=== PATIENT | male | born 1970 | race Caucasian/White ===

== ENCOUNTER 2018-05-10 07:54 | Day surgery (SDC) | payer MEDICAID ==
[2018-05-07 11:00] VITALS: BMI 44.9
[~2018-05-10 07:54] MED LIST: LACTATED RINGERS 1,000 ML IV SCH; LIDOCAINE 1% 20 ML VIAL (10MG/ML) FOR IV START INTRADERMA PRN
[2018-05-10 08:13] VITALS: RESP 16; TEMP 99.8
[2018-05-10] MEDS ORDERED: PROPOFOL 10 MG/ML 20 ML VIAL IV ONE (08:48)
[2018-05-10] MEDS ORDERED: LIDOCAINE 1% INJ 10MG/ML (20 ML MDV) ONE (08:48)
--- NOTE | 2018-05-10 08:54 | P.GSHP ---
History of Present Illness H&P Date: 05/10/18 Chief Complaint: Screening colonoscopy This a 48-year-old male who presents today for screening colonoscopy. Patient denies any significant GI complaints. Past Medical History Past Medical History: Hyperlipidemia, Hypertension History of Any Multi-Drug Resistant Organisms: None Reported Past Surgical History: Tonsillectomy Past Anesthesia/Blood Transfusion Reactions: No Reported Reaction Smoking Status: Never smoker - Past Family History Mother Family Medical History: No Reported History Medications and Allergies Home Medications Medication Instructions Recorded Confirmed Type Aspirin 81 mg PO DAILY 05/07/18 05/10/18 History Atorvastatin [Lipitor] 20 mg PO DAILY 05/07/18 05/10/18 History Cetirizine HCl [Zyrtec] 10 mg PO DAILY PRN 05/07/18 05/10/18 History Lisinopril [Zestril] 20 mg PO DAILY 05/07/18 05/10/18 History Allergies Allergy/AdvReac Type Severity Reaction Status Date / Time Penicillins Allergy Rash/Hives Verified 05/10/18 08:09 Surgical - Exam Vital Signs Temp Pulse Resp BP Pulse Ox 99.8 F H 104 H 16 155/85 94 L 05/10/18 08:09 05/10/18 08:09 05/10/18 08:09 05/10/18 08:09 05/10/18 08:09 - General well developed, well nourished, no distress - Eyes PERRL - ENT normal pinna - Neck no masses - Respiratory normal expansion - Cardiovascular Rhythm: regular - Abdomen Abdomen: soft, non tender Assessment and Plan Assessment: We'll perform screening colonoscopy.
--- NOTE | 2018-05-10 09:16 | P.OP ---
Date of Procedure: 05/10/18 Preoperative Diagnosis: Screening colonoscopy Postoperative Diagnosis: Colon mass at 45 cm pathology pending Procedure(s) Performed: Colonoscopy Anesthesia: MAC Surgeon: Mathew Dozier Pathology: other (Left colon mass biopsy) Condition: stable Disposition: PACU Description of Procedure: The patient's placed on the endoscopy table lateral position. He received IV sedation. Digital rectal exam was performed which revealed no abnormalities. Flexible colonoscope was then placed patient anus and passed throughout the entire colon. The ileocecal valve was visualized. The cecum, ascending and transverse colon appeared normal. In the descending colon at approximate 45 cm nelia there was a large colonic mass. The mass was biopsied the combination of the snare and cold forcep. Scope was withdrawn remainder the sigmoid colon appeared normal. The rectum was normal. Scope was withdrawn for patient.
[2018-05-10 09:40] VITALS: BP 133/82; PULSE 87
== END 2018-05-10 10:21 | disposition home or self-care (01) ==
LOC: ORWHC2ENDO 07:54
PROVIDERS: ATTEND Surgery
DX: Z12.11 Encounter for screening for malignant neoplasm of colon (principal); C18.6 Malignant neoplasm of descending colon; E78.5 Hyperlipidemia, unspecified; I10 Essential (primary) hypertension; I49.9 Cardiac arrhythmia, unspecified; G47.33 Obstructive sleep apnea (adult) (pediatric); Z79.82 Long term (current) use of aspirin; Z79.899 Other long term (current) drug therapy; Z88.0 Allergy status to penicillin
CPT/HCPCS: 88305; 45385; J2001; J2704; 45380; 45381

== ENCOUNTER → 2018-05-15 | Outpatient (CLI) | payer MEDICAID ==
[2018-05-15 17:31] LABS: HGB 14.8 gm/dL (13.0-17.5); MCH 28.8 pg (25.0-35.0); MCHC 33.6 g/dL (31.0-37.0); MCV 85.7 fL (80.0-100.0); Mean Platelet Volume 6.6; Platelet Count 329 k/uL (150-450); RBC 5.14 m/uL (4.30-5.90); RDW 13.1 % (11.5-15.5); WBC 8.2 k/uL (3.8-10.6)
[2018-05-15 18:23] LABS: Potassium 4.4 mmol/L (3.5-5.1)
== END ==
LOC: LABPAT 17:06
PROVIDERS: ATTEND Surgery
DX: Z01.812 Encounter for preprocedural laboratory examination (principal); C18.9 Malignant neoplasm of colon, unspecified; Z90.49 Acquired absence of other specified parts of digestive tract
CPT/HCPCS: 36415; 80051; 85027; 86850; 86900; 86901

== ENCOUNTER → 2018-05-18 | Outpatient (CLI) | payer MEDICAID | LOC: LABPAT 10:16 | PROVIDERS: ATTEND Surgery | DX: Z01.818 Encounter for other preprocedural examination (principal); Z01.812 Encounter for preprocedural laboratory examination; C18.9 Malignant neoplasm of colon, unspecified | CPT/HCPCS: 93005 ==

== ENCOUNTER 2018-05-21 09:20 | Inpatient (IN) | payer MEDICAID ==
[2018-05-17 13:44] VITALS: BMI 44.9
[~2018-05-21 09:20] MED LIST changes: +DEXAMETHASONE SOD PHOSPHATE 10 MG/ML 1 ML VIAL IV ONE; +HEPARIN SODIUM,PORCINE 5,000 UNIT/ML 1 ML VIAL SQ ONE; +HYDROmorphone 0.5 MG/0.5 ML SYRINGE IVP PRN; -LACTATED RINGERS 1,000 ML IV SCH; -LIDOCAINE 1% 20 ML VIAL (10MG/ML) FOR IV START INTRADERMA PRN; +MIDAZOLAM (PF) 2 MG/2 ML VIAL IV PRN; +ONDANSETRON 4 MG/2 ML VIAL IVP ONE; +SCOPOLAMINE 1.5MG/72HR PATCH TRANSDERM ONE; +ceFAZolin IN SWFI 2 GM/20 ML SYRINGE IVP ONE; +metroNIDAZOLE-NS PMX 500 MG in SALINE 1 100ML.BAG IVPB ONE
[2018-05-21] MEDS: LACTATED RINGERS 1,000 ML IV SCH (09:50)
[2018-05-21] MEDS ORDERED: LIDOCAINE 1% 20 ML VIAL (10MG/ML) FOR IV START INTRADERMA ONE (09:52)
--- NOTE | 2018-05-21 09:54 | P.GSHP ---
History of Present Illness H&P Date: 05/21/18 Chief Complaint: Colon cancer This a 48-year-old male who was previously diagnosed with left colon cancer. Patient resents today for low anterior resection Patient with the risks of surgery including bleeding, wound infection and possible colostomy. Past Medical History Past Medical History: Cancer, Hyperlipidemia, Hypertension Additional Past Medical History / Comment(s): colon cancer History of Any Multi-Drug Resistant Organisms: None Reported Past Surgical History: Tonsillectomy Past Anesthesia/Blood Transfusion Reactions: No Reported Reaction Smoking Status: Never smoker - Past Family History Mother Family Medical History: No Reported History Medications and Allergies Home Medications Medication Instructions Recorded Confirmed Type Aspirin 81 mg PO DAILY 05/07/18 05/17/18 History Atorvastatin [Lipitor] 20 mg PO DAILY 05/07/18 05/17/18 History Cetirizine HCl [Zyrtec] 10 mg PO DAILY PRN 05/07/18 05/21/18 History Lisinopril [Zestril] 20 mg PO DAILY 05/07/18 05/21/18 History Allergies Allergy/AdvReac Type Severity Reaction Status Date / Time Penicillins Allergy Rash/Hives Verified 05/17/18 13:40 Surgical - Exam Vital Signs Temp Pulse Resp BP Pulse Ox 98.4 F 99 16 149/76 96 05/21/18 09:39 05/21/18 09:39 05/21/18 09:39 05/21/18 09:39 05/21/18 09:39 - General well developed, well nourished, no distress - Eyes PERRL - ENT normal pinna - Neck no masses - Respiratory normal expansion - Cardiovascular Rhythm: regular - Abdomen Abdomen: soft, non tender Assessment and Plan Assessment: Left colon cancer. We'll perform low anterior resection.
[2018-05-21] MEDS ORDERED: fentaNYL (PF) 50 MCG/ML 2 ML AMP IVP ONE ×2 (09:55→10:27)
[2018-05-21] MEDS ORDERED: MIDAZOLAM 2 MG/2 ML VIAL IVP ONE (10:04)
[2018-05-21] MEDS ORDERED: fentaNYL (PF) 50 MCG/ML 2 ML AMP ONE (10:23)
[2018-05-21] MEDS ORDERED: NEOSTIGMINE 1 MG/ML 10 ML VIAL ONE (10:23)
[2018-05-21] MEDS ORDERED: HYDROmorphone (PF) 1 MG/ML ONE (10:23)
[2018-05-21] MEDS ORDERED: SUCCINYLCHOLINE CHLORIDE VIAL 200 MG/10 ML VIAL IV ONE (10:23)
[2018-05-21] MEDS ORDERED: ROCURONIUM BROMIDE 10 MG/ML 10 ML VIAL IV ONE (10:23)
[2018-05-21] MEDS ORDERED: PHENYLEPHRINE-0.9% NACL SYG 1 MG/10 ML SYRINGE ONE (10:23)
[2018-05-21] MEDS ORDERED: MIDAZOLAM 2 MG/2 ML VIAL ONE (10:23)
[2018-05-21] MEDS ORDERED: ePHEDrine SULFATE/0.9% NACL/PF 50 MG/5 ML SYRINGE IV ONE (10:23)
[2018-05-21] MEDS ORDERED: PROPOFOL 10 MG/ML 20 ML VIAL IV ONE (10:23)
[2018-05-21] MEDS ORDERED: LIDOCAINE 1% INJ 10MG/ML (20 ML MDV) ONE (10:23)
[2018-05-21] MEDS ORDERED: GLYCOPYRROLATE 0.2 MG/ML 2 ML VIAL ONE (10:23)
[2018-05-21] MEDS ORDERED: NALOXONE 0.4 MG/ML 1 ML VIAL IV PRN (10:48)
[2018-05-21] MEDS ORDERED: diphenhydrAMINE 50 MG/ML 1 ML VIAL IVP PRN (10:48)
[2018-05-21] MEDS ORDERED: NALBUPHINE 10 MG/ML VIAL (10ML MDV) IV PRN (10:48)
[2018-05-21] MEDS ORDERED: LACTATED RINGERS 1,000 ML IV ONE (11:21)
[2018-05-21] MEDS ORDERED: ONDANSETRON 4 MG/2 ML VIAL IVP PRN (12:01)
--- NOTE | 2018-05-21 12:06 | P.OP ---
Date of Procedure: 05/21/18 Preoperative Diagnosis: Left colon cancer Postoperative Diagnosis: Colon cancer Procedure(s) Performed: Low anterior resection Anesthesia: GUILLERMINA Surgeon: Mathew Dozier Estimated Blood Loss (ml): 25 Pathology: other (Sigmoid colon) Condition: stable Disposition: PACU Description of Procedure: DESCRIPTION OF PROCEDURE: The patient was placed on the operating table in the supine position. Patient received a general anesthesia. Patient was then placed in the dorsal lithotomy position. The patients abdomen was prepped and draped in the usual sterile fashion. Through a low midline incision, the abdomen was entered. The Bereket wound protector was used. The Bookwalter retractor was placed in the wound. The stomach appeared normal. The small bowel appeared normal. The liver appeared normal. The right colon and transverse colon appeared normal. The patient's lesion was located at the proximal sigmoid colon. The area had a spot tattoo. The proximal colon was transected proximally and distally with the REJI stapler and then using the Enseal device the mesentery was divided. The specimen was tagged with a suture of the proximal and. Stress was sent to pathology. A [id number] functional end-to-end staple anastomosis then created using REJI and TA staplers. A 3-0 GI silk sutures placed as a crotch stitch. The abdomen was irrigated there is no bleeding seen. The fascia was closed clean instruments. The fascia was then closed with double stranded #1 PDS. The skin was closed with yamileth. The patient tolerated the procedure well.
[2018-05-21] MEDS: ROPIVACAINE 400 MG, HYDROMORPHONE (PF) 5 MG in SODIUM CHLORIDE 0.9% 170 ML EPIDURAL PRN (12:51)
[2018-05-21] MEDS: D5-0.45% NACL WITH KCL 20MEQ/L 1,000 ML IV SCH ×2 (14:18→21:34)
[2018-05-21] MEDS: HEPARIN SODIUM,PORCINE 5,000 UNIT/ML 1 ML VIAL SQ SCH ×2 (16:08→23:07)
--- NOTE | 2018-05-21 22:28 | P.CONS ---
History of Present Illness - Reason for Consult Consult date: 05/21/18 Medical management of hypertension - Chief Complaint Intubated for colon resection - History of Present Illness Patient is a 48-year-old male with a known history of hypertension, hyperlipidemia who recently had age appropriate cancer screening with colonoscopy on 05/10/2018 which showed invasive moderately differentiated adenocarcinoma. Patient is currently admitted to hospital for left anterior resection of the colon. Patient tolerated the procedure very well. Currently on epidural. Pain is well controlled. No complains of chest pain or shortness of breath. No fever no chills. No headache or dizziness or lightheadedness. Patient's blood pressure was low after surgery. Past Medical History Past Medical History: Cancer, Hyperlipidemia, Hypertension Additional Past Medical History / Comment(s): colon cancer History of Any Multi-Drug Resistant Organisms: None Reported Past Surgical History: Tonsillectomy Past Anesthesia/Blood Transfusion Reactions: No Reported Reaction Smoking Status: Never smoker Past Alcohol Use History: Rare Past Drug Use History: None Reported - Past Family History Mother Family Medical History: No Reported History Invasive moderately differentiated adenocarcinoma Review of Systems Constitutional: Patient denies any fever or chills . No generalized weakness or weight loss. Abdomen: Patient denied nausea vomiting and diarrhea and abdominal pain. Cardiovascular: Patient denies any chest pain or short of breath no palpitations. Respiratory: patient denied any cough is from production. No shortness of breath Neurologic: Patient denied any numbness or tingling headache. Musculoskeletal: Patient denies any complaints of joint swelling or deformity. Skin: Negative Psychiatric: Negative Endocrine: No heat or cold intolerance. No recent weight gain. Genitourinary: No dysuria or hematuria. All other 14 point ROS negative except the above Past Medical History Past Medical History: Cancer, Hyperlipidemia, Hypertension Additional Past Medical History / Comment(s): colon cancer History of Any Multi-Drug Resistant Organisms: None Reported Past Surgical History: Tonsillectomy Past Anesthesia/Blood Transfusion Reactions: No Reported Reaction Smoking Status: Never smoker Past Alcohol Use History: Rare Past Drug Use History: None Reported - Past Family History Mother Family Medical History: No Reported History Medications and Allergies Home Medications Medication Instructions Recorded Confirmed Type Aspirin 81 mg PO DAILY 05/07/18 05/21/18 History Atorvastatin [Lipitor] 20 mg PO DAILY 05/07/18 05/21/18 History Cetirizine HCl [Zyrtec] 10 mg PO DAILY PRN 05/07/18 05/21/18 History Lisinopril [Zestril] 20 mg PO DAILY 05/07/18 05/21/18 History Allergies Allergy/AdvReac Type Severity Reaction Status Date / Time Penicillins Allergy Rash/Hives Verified 05/21/18 12:32 Physical Exam Vitals: Vital Signs Temp Pulse Resp BP Pulse Ox 05/21/18 15:30 85 109/70 98 05/21/18 15:00 83 100/63 99 05/21/18 14:45 79 101/65 98 05/21/18 14:30 77 95/62 97 05/21/18 14:15 84 93/59 05/21/18 14:00 72 97/63 99 05/21/18 13:45 97 107/67 100 05/21/18 13:15 93 103/67 98 05/21/18 13:00 97.5 F L 87 100/65 98 05/21/18 12:45 80 16 106/55 96 05/21/18 12:30 80 16 112/57 100 05/21/18 12:15 84 16 112/56 100 05/21/18 12:02 96.9 F L 101 H 14 112/55 98 05/21/18 10:25 100 16 123/65 95 05/21/18 09:39 98.4 F 99 16 149/76 96 Intake and Output 05/21/18 05/21/18 05/21/18 06:59 14:59 22:59 Intake Total 2860 Output Total 300 Balance 2560 Intake: IV 1960 Intake, IV Titration 900 Amount Lactated Ringers 1,000 ml 900 @ 20 mls/hr IV .Q24H [facility] Rx#:[id number] Output: Urine 275 Estimated Blood Loss 25 Other: Weight 158.757 kg PHYSICAL EXAMINATION: Patient is lying in the bed comfortably, no acute distress, awake alert and oriented.. HEENT: Normocephalic. Neck is supple. Pupils reactive. Nostrils clear. Oral cavity is moist. Ears reveal no drainage. Neck reveals no JVD, carotid bruits, or thyromegaly. CHEST EXAMINATION: Trachea is central. Symmetrical expansion. Lung galicia clear to auscultation and percussion. CARDIAC: Normal S1, S2 with no gallops. No murmurs ABDOMEN: Soft. Bowel sounds diminished. Surgical site is intact. No organomegaly. No abdominal bruits. Extremities: reveal no edema. No clubbing or cyanosis Neurologically awake, alert, oriented x3 with well-coordinated movements. No focal deficits noted Skin: No rash or skin lesions. Psychiatric: Cooperative. Nonsuicidal Musculoskeletal: No joint swelling or deformity. Normal range of motion. Assessment and Plan Assessment: Adenocarcinoma of the colon status post anterior left colectomy Hypertension. Currently patient is hypotensive Hyperlipidemia DVT prophylaxis Plan: Patient will be continued on pain management with Dilaudid via epidural. Continue with IV fluids and will hold blood pressure medications due to hypotension currently. Continue to follow closely and symptomatic management. Follow-up CBC and BMP. Further recommendations based on the clinical course. Thank you for your consult Time with Patient: Greater than 30
[2018-05-22] MEDS: LACTATED RINGERS 1,000 ML IV SCH (04:45)
[2018-05-22] MEDS: D5-0.45% NACL WITH KCL 20MEQ/L 1,000 ML IV SCH ×2 (05:32→12:40)
[2018-05-22 08:29] LABS: Basophils % (A) 0 %; Eosinophils % (A) 0 %; HCT 40.3 % (39.0-53.0); HGB 12.5 gm/dL (13.0-17.5); Hypochromasia Slight; Lymphocytes % (A) 5 %; MCH 27.3 pg (25.0-35.0); MCHC 31.1 g/dL (31.0-37.0); Mean Platelet Volume 6.4; Monocytes # (A) 0.7 k/uL (0-1.0); Monocytes % (A) 4 %; Neutrophils # (A) 17.7 k/uL (1.3-7.7); Neutrophils % (A) 90 %; Platelet Count 454 k/uL (150-450); RBC 4.59 m/uL (4.30-5.90); RDW 12.9 % (11.5-15.5); WBC 19.6 k/uL (3.8-10.6)
[2018-05-22 08:37] LABS: Calcium 8.4 mg/dL (8.4-10.2)
[2018-05-22] MEDS: HEPARIN SODIUM,PORCINE 5,000 UNIT/ML 1 ML VIAL SQ SCH ×3 (09:24→23:29)
[2018-05-22] MEDS ORDERED: DEXTROSE 50%-WATER 50 ML SYRINGE IVP STA (12:19)
[2018-05-22] MEDS ORDERED: INSULIN REGULAR 100 UNIT/ML VIAL IV ONE (12:30)
[2018-05-22] MEDS: SODIUM CHLORIDE 0.9% 1,000 ML IV SCH ×2 (12:53→23:29)
--- NOTE | 2018-05-22 12:54 | P.PN ---
Subjective Progress Note Date: 05/22/18 CHIEF COMPLAINT: Status post low anterior resection HISTORY OF PRESENT ILLNESS: 48-year-old male who underwent low anterior resection. POD #1. Patient is sitting up in the chair. Epidural is infusing at 8cc/hour. Patient reports his pain is tolerable. Tolerating clear liquid diet. Denies nausea or vomiting. Denies passing flatus. Denies bowel movement. PHYSICAL EXAM: VITAL SIGNS: Currently stable. GENERAL: Well-developed in no acute distress. HEENT: No sclera icterus. Extraocular movements grossly intact. Moist buccal mucosa. Head is atraumatic, normocephalic. Hears conversational speech. No nasal drainage. NECK: Supple without lymphadenopathy. CHEST: Non-labored respirations and equal bilateral excursions. CARDIOVASCULAR: Regular rate with regular rhythm. Palpable 2+ radial pulses. ABDOMEN: Soft. PREVENA wound vac intact. MUSCULOSKELETAL: No clubbing, cyanosis or edema. NEUROLOGIC: No focal or lateralizing signs. Cranial nerves II through XII grossly intact. PSYCH: Appropriate affect. Alert and oriented to person, place and time. SKIN: Well perfused. Good skin turgor. ASSESSMENT: 1. Colon cancer, s/p low anterior resection PLAN: 1. Continue epidural per anesthesia 2. Continue hinojosa while epidural in place 3. Await bowel return. Continue clear liquids. When patient begins passing flatus, may advance diet as tolerated 4. Activity as tolerated. Patient encouraged to ambulate and be up in the chair during the day Nurse practitioner note has been reviewed by physician. Signing provider agrees with the documented findings, assessment, and plan of care. Objective - Vital Signs Vital signs: Vital Signs Temp 98.1 F 05/22/18 09:40 Pulse 96 05/22/18 09:40 Resp 16 05/22/18 09:40 BP 100/63 05/22/18 09:40 Pulse Ox 98 05/22/18 09:40 Intake & Output 05/21/18 05/22/18 05/22/18 18:59 06:59 18:59 Intake Total 2860 1990 Output Total 300 300 Balance 2560 1690 Weight 158.757 kg Intake: IV 1960 Intake, IV Titration 900 1250 Amount D5-0.45% NaCl with KCl 1250 20Meq/l 1,000 ml @ 125 mls/hr IV .Q8H [facility] Rx#: [id number] Lactated Ringers 1,000 ml 900 @ 20 mls/hr IV .Q24H [facility] Rx#:[id number] Oral 740 Output: Urine 275 300 Estimated Blood Loss 25 Other: Voiding Method Indwelling Catheter Indwelling Catheter Indwelling Catheter - Labs CBC & Chem 7: 05/22/18 07:19 05/22/18 07:19 Labs: Abnormal Lab Results - Last 24 Hours (Table) 05/22/18 05/22/18 Range/Units 07:19 07:19 WBC 19.6 H (3.8-10.6) k/uL Hgb 12.5 L (13.0-17.5) gm/dL Plt Count 454 H (150-450) k/uL Neutrophils # 17.7 H (1.3-7.7) k/uL Sodium 135 L (137-145) mmol/L Potassium 6.0 H (3.5-5.1) mmol/L Creatinine 2.41 H (0.66-1.25) mg/dL Glucose 135 H (74-99) mg/dL
[2018-05-22] MEDS: ROPIVACAINE 400 MG, HYDROMORPHONE (PF) 5 MG in SODIUM CHLORIDE 0.9% 170 ML EPIDURAL PRN (14:07)
--- NOTE | 2018-05-22 15:11 | P.PN ---
Progress Note - Text Anesthesia POD 1. Status Post low anterior resection under general endotracheal anesthesia with an epidrual catheter placed at T12 for post surgical pain releif. VAS (0, 3) with Ropivicaine 0.16 % and Dilaudid 20 mcg / cc running at 8 cc / hr. Lower extremity strength (4/4). Minimal sedation. Site looks OK.
--- NOTE | 2018-05-23 05:31 | P.PN ---
Progress Note - Text Progress Note Date: 05/23/18 Patient's postop day 2 from low anterior resection. Catheter day #3. Doing well. No when necessary pain medications required. Minimal pruritus. Minimal nausea. Louise catheter still in place per surgery team. No lower extremity numbness or weakness. Site is clean and dry
[2018-05-23 07:48] LABS: Basophils % (A) 0 %; Eosinophils % (A) 0 %; HGB 11.8 gm/dL (13.0-17.5); Lymphocytes # (A) 2.1 k/uL (1.0-4.8); Lymphocytes % (A) 15 %; MCH 26.9 pg (25.0-35.0); MCHC 31.1 g/dL (31.0-37.0); MCV 86.4 fL (80.0-100.0); Mean Platelet Volume 6.3; Monocytes % (A) 7 %; Neutrophils # (A) 10.7 k/uL (1.3-7.7); Neutrophils % (A) 75 %; Platelet Count 368 k/uL (150-450); RBC 4.39 m/uL (4.30-5.90); RDW 13.1 % (11.5-15.5); WBC 14.2 k/uL (3.8-10.6)
[2018-05-23 08:06] LABS: Calcium 8.2 mg/dL (8.4-10.2); Potassium 4.7 mmol/L (3.5-5.1)
[2018-05-23] MEDS: LACTATED RINGERS 1,000 ML IV SCH (08:51)
[2018-05-23] MEDS: HEPARIN SODIUM,PORCINE 5,000 UNIT/ML 1 ML VIAL SQ SCH ×3 (08:54→23:45)
[2018-05-23] MEDS: SODIUM CHLORIDE 0.9% 1,000 ML IV SCH (08:55)
--- NOTE | 2018-05-23 10:55 | P.PN ---
Subjective Progress Note Date: 05/23/18 CHIEF COMPLAINT: Status post low anterior resection HISTORY OF PRESENT ILLNESS: 48-year-old male who underwent low anterior resection. POD #2. Epidural is infusing at 8cc/hour. Patient reports his pain is tolerable. Tolerating clear liquid diet. Denies nausea or vomiting. Patient reports passing a lot of flatus. Denies bowel movement. PHYSICAL EXAM: VITAL SIGNS: Currently stable. GENERAL: Well-developed in no acute distress. HEENT: No sclera icterus. Extraocular movements grossly intact. Moist buccal mucosa. Head is atraumatic, normocephalic. Hears conversational speech. No nasal drainage. NECK: Supple without lymphadenopathy. CHEST: Non-labored respirations and equal bilateral excursions. CARDIOVASCULAR: Regular rate with regular rhythm. Palpable 2+ radial pulses. ABDOMEN: Soft. PREVENA wound vac intact. MUSCULOSKELETAL: No clubbing, cyanosis or edema. NEUROLOGIC: No focal or lateralizing signs. Cranial nerves II through XII grossly intact. PSYCH: Appropriate affect. Alert and oriented to person, place and time. SKIN: Well perfused. Good skin turgor. ASSESSMENT: 1. Colon cancer, s/p low anterior resection PLAN: 1. Continue epidural per anesthesia 2. Continue hinojosa while epidural in place 3. Patient may advance diet to full liquid 4. Activity as tolerated. Patient encouraged to ambulate and be up in the chair during the day Nurse practitioner note has been reviewed by physician. Signing provider agrees with the documented findings, assessment, and plan of care. Objective - Vital Signs Vital signs: Vital Signs Temp 98.8 F 05/23/18 07:28 Pulse 89 05/23/18 08:00 Resp 16 05/23/18 08:00 BP 132/72 05/23/18 07:28 Pulse Ox 92 L 05/23/18 07:28 Intake & Output 05/22/18 05/23/18 05/23/18 18:59 06:59 18:59 Intake Total 700 Output Total 1300 2325 1000 Balance -600 -2325 -1000 Intake: Intake, IV Titration 700 Amount Sodium Chloride 0.9% 1, 700 000 ml @ 100 mls/hr IV . Q10H [facility] Rx#:[id number] Output: Urine 1300 2325 1000 Other: Voiding Method Indwelling Catheter Indwelling Catheter Indwelling Catheter - Labs CBC & Chem 7: 05/23/18 06:22 05/23/18 06:22 Labs: Abnormal Lab Results - Last 24 Hours (Table) 05/23/18 05/23/18 Range/Units 06:22 06:22 WBC 14.2 H (3.8-10.6) k/uL Hgb 11.8 L (13.0-17.5) gm/dL Hct 38.0 L (39.0-53.0) % Neutrophils # 10.7 H (1.3-7.7) k/uL Sodium 135 L (137-145) mmol/L Calcium 8.2 L (8.4-10.2) mg/dL
[2018-05-23] MEDS: ROPIVACAINE 400 MG, HYDROMORPHONE (PF) 5 MG in SODIUM CHLORIDE 0.9% 170 ML EPIDURAL PRN (16:20)
[2018-05-24] MEDS: HEPARIN SODIUM,PORCINE 5,000 UNIT/ML 1 ML VIAL SQ SCH ×3 (08:49→23:12)
[2018-05-24] MEDS ORDERED: HYDROcodone/APAP 7.5-325MG 1 EACH TAB PO PRN (09:26)
[2018-05-24] MEDS: SODIUM CHLORIDE 0.9% 1,000 ML IV SCH (10:33)
[2018-05-24] MEDS: LACTATED RINGERS 1,000 ML IV SCH (10:42)
--- NOTE | 2018-05-24 11:43 | P.PN ---
Subjective Progress Note Date: 05/24/18 CHIEF COMPLAINT: Status post low anterior resection HISTORY OF PRESENT ILLNESS: 48-year-old male who underwent low anterior resection. POD #3. Epidural is infusing at 8cc/hour. Patient reports his pain is tolerable. Tolerating full liquid diet. Denies nausea or vomiting. Patient reports passing a lot of flatus. Denies bowel movement. PHYSICAL EXAM: VITAL SIGNS: Currently stable. GENERAL: Well-developed in no acute distress. HEENT: No sclera icterus. Extraocular movements grossly intact. Moist buccal mucosa. Head is atraumatic, normocephalic. Hears conversational speech. No nasal drainage. NECK: Supple without lymphadenopathy. CHEST: Non-labored respirations and equal bilateral excursions. CARDIOVASCULAR: Regular rate with regular rhythm. Palpable 2+ radial pulses. ABDOMEN: Soft. PREVENA wound vac intact. MUSCULOSKELETAL: No clubbing, cyanosis or edema. NEUROLOGIC: No focal or lateralizing signs. Cranial nerves II through XII grossly intact. PSYCH: Appropriate affect. Alert and oriented to person, place and time. SKIN: Well perfused. Good skin turgor. ASSESSMENT: 1. Colon cancer, s/p low anterior resection PLAN: 1. Discontinue epidural 4 hours after last heparin dose 2. Discontinue Louise catheter after epidural has been removed 3. Will advance diet to soft foods 4. Increase activity 5. Anticipate discharge home tomorrow Nurse practitioner note has been reviewed by physician. Signing provider agrees with the documented findings, assessment, and plan of care. Objective - Vital Signs Vital signs: Vital Signs Temp 98.9 F 05/24/18 07:00 Pulse 89 05/24/18 07:00 Resp 17 05/24/18 07:00 BP 169/78 05/24/18 07:00 Pulse Ox 94 L 05/24/18 07:00 Intake & Output 05/23/18 05/24/18 05/24/18 18:59 06:59 18:59 Intake Total 909.6 2480 Output Total 2800 1800 Balance -1890.4 2480 -1800 Intake: Intake, IV Titration 909.6 1600 Amount Ropivacaine 400 mg 209.6 Hydromorphone (Pf) 5 mg In Sodium Chloride 0.9% 170 ml @ Per Protocol EPIDURAL .Q0M [facility] Rx#: [id number] Sodium Chloride 0.9% 1, 700 1600 000 ml @ 100 mls/hr IV . Q10H [facility] Rx#:[id number] Oral 880 Output: Urine 2800 1800 Other: Voiding Method Indwelling Catheter Indwelling Catheter # Voids 3 3 - Labs CBC & Chem 7: 05/23/18 06:22 05/23/18 06:22
--- NOTE | 2018-05-24 12:43 | P.PN ---
Progress Note - Text Anesthesia POD 3. Status Post low anterior resection under general endotracheal anesthesia with an epidrual catheter placed at T12 for post surgical pain releif. VAS (0, 3) with Ropivicaine 0.16 % and Dilaudid 20 mcg / cc running at 8 cc / hr. Lower extremity strength (4/4). [] sedation. Site looks OK.
--- NOTE | 2018-05-24 13:30 | P.PN ---
Subjective Progress Note Date: 05/22/18 Principal diagnosis: Adenocarcinoma the colon. Status post resection Patient is a 48-year-old male with a known history of hypertension, hyperlipidemia who recently had age appropriate cancer screening with colonoscopy on 05/10/2018 which showed invasive moderately differentiated adenocarcinoma. Patient is currently admitted to hospital for left anterior resection of the colon. Patient tolerated the procedure very well. Currently on epidural. Pain is well controlled. No complains of chest pain or shortness of breath. No fever no chills. No headache or dizziness or lightheadedness. Patient's blood pressure was low after surgery. 05/22/2018 Patient denied any complaints of worsening abdominal pain. Patient is still on epidural Dilaudid. Otherwise renal function showed creatinine increased to 2.41 , potassium level .0. Patient was given a dose of regular insulin 10 units IV and D50. We will follow up repeat potassium level. Patient is being continued on IV hydration with normal saline. No fever no chills. Patient does have leukocytosis is most likely secondary to inflammatory reaction from surgery. Patient otherwise does not have any bowel movement or flatus at this time. Current medications reviewed. Objective - Vital Signs Vital signs: Vital Signs Temp 98.1 F 05/22/18 09:40 Pulse 96 05/22/18 09:40 Resp 16 05/22/18 09:40 BP 100/63 05/22/18 09:40 Pulse Ox 98 05/22/18 09:40 Intake & Output 05/21/18 05/22/18 05/22/18 18:59 06:59 18:59 Intake Total 2860 1990 Output Total 300 300 Balance 2560 1690 Weight 158.757 kg Intake: IV 1960 Intake, IV Titration 900 1250 Amount D5-0.45% NaCl with KCl 1250 20Meq/l 1,000 ml @ 125 mls/hr IV .Q8H [facility] Rx#: [id number] Lactated Ringers 1,000 ml 900 @ 20 mls/hr IV .Q24H [facility] Rx#:[id number] Oral 740 Output: Urine 275 300 Estimated Blood Loss 25 Other: Voiding Method Indwelling Catheter Indwelling Catheter Indwelling Catheter - Exam PHYSICAL EXAMINATION: Patient is lying in the bed comfortably, no acute distress, awake alert and oriented.. HEENT: Normocephalic. Neck is supple. Pupils reactive. Nostrils clear. Oral cavity is moist. Ears reveal no drainage. Neck reveals no JVD, carotid bruits, or thyromegaly. CHEST EXAMINATION: Trachea is central. Symmetrical expansion. Lung galicia clear to auscultation and percussion. CARDIAC: Normal S1, S2 with no gallops. No murmurs ABDOMEN: Soft. Bowel sounds sluggish. No organomegaly. No abdominal bruits. Surgical site intact. Extremities: reveal no edema. No clubbing or cyanosis Neurologically awake, alert, oriented x3 with well-coordinated movements. No focal deficits noted Skin: No rash or skin lesions. Psychiatric: Coperative. Nonsuicidal Musculoskeletal: No joint swelling or deformity. Normal range of motion. - Labs CBC & Chem 7: 05/23/18 06:22 05/23/18 06:22 Labs: Abnormal Lab Results - Last 24 Hours (Table) 05/22/18 05/22/18 Range/Units 07:19 07:19 WBC 19.6 H (3.8-10.6) k/uL Hgb 12.5 L (13.0-17.5) gm/dL Plt Count 454 H (150-450) k/uL Neutrophils # 17.7 H (1.3-7.7) k/uL Sodium 135 L (137-145) mmol/L Potassium 6.0 H (3.5-5.1) mmol/L Creatinine 2.41 H (0.66-1.25) mg/dL Glucose 135 H (74-99) mg/dL Assessment and Plan Assessment: Adenocarcinoma of the colon status post anterior left colectomy Hypertension. Currently blood pressure medications held. Leukocytosis likely due to inflammation reaction from surgery Acute kidney injury with creatinine level II.41 Hyperkalemia due to acute kidney injury. Hyperlipidemia DVT prophylaxis Plan: Patient will be continued on pain management with Dilaudid via epidural. Continue with IV fluids and will hold blood pressure medications due to hypotension. Follow-up potassium level. Continue to follow closely and symptomatic management. Follow-up CBC and BMP. Further recommendations based on the clinical course. Thank you for your consult Time with Patient: Greater than 30
--- NOTE | 2018-05-24 13:32 | P.PN ---
Subjective Progress Note Date: 05/23/18 Principal diagnosis: Adenocarcinoma the colon. Status post resection Patient is a 48-year-old male with a known history of hypertension, hyperlipidemia who recently had age appropriate cancer screening with colonoscopy on 05/10/2018 which showed invasive moderately differentiated adenocarcinoma. Patient is currently admitted to hospital for left anterior resection of the colon. Patient tolerated the procedure very well. Currently on epidural. Pain is well controlled. No complains of chest pain or shortness of breath. No fever no chills. No headache or dizziness or lightheadedness. Patient's blood pressure was low after surgery. 05/22/2018 Patient denied any complaints of worsening abdominal pain. Patient is still on epidural Dilaudid. Otherwise renal function showed creatinine increased to 2.41 , potassium level .0. Patient was given a dose of regular insulin 10 units IV and D50. We will follow up repeat potassium level. Patient is being continued on IV hydration with normal saline. No fever no chills. Patient does have leukocytosis is most likely secondary to inflammatory reaction from surgery. Patient otherwise does not have any bowel movement or flatus at this time. 05/23/2018 Patient denied any complaints of chest pain or shortness of breath. Patient was able to pass flatness. No bowel movement. Tolerating liquid diet. Otherwise renal function improved to normal level. Hyperkalemia resolved. Patient is being continued on IV hydration and currently on epidural for pain management. Patient is also on Louise catheter. Otherwise no fever no chills. No other acute overnight issues. Current medications reviewed. Objective - Vital Signs Vital signs: Vital Signs Temp 98.7 F 05/23/18 14:21 Pulse 93 05/23/18 16:00 Resp 16 05/23/18 16:00 BP 134/56 05/23/18 14:21 Pulse Ox 98 05/23/18 14:21 Intake & Output 05/23/18 05/23/18 05/24/18 06:59 18:59 06:59 Intake Total 909.6 Output Total 5537 2800 Balance -2325 -1890.4 Intake: Intake, IV Titration 909.6 Amount Ropivacaine 400 mg 209.6 Hydromorphone (Pf) 5 mg In Sodium Chloride 0.9% 170 ml @ Per Protocol EPIDURAL .Q0M PRN Rx#: [id number] Sodium Chloride 0.9% 1, 700 000 ml @ 100 mls/hr IV . Q10H [facility] Rx#:[id number] Output: Urine 2325 2800 Other: Voiding Method Indwelling Catheter Indwelling Catheter - Exam PHYSICAL EXAMINATION: Patient is lying in the bed comfortably, no acute distress, awake alert and oriented.. HEENT: Normocephalic. Neck is supple. Pupils reactive. Nostrils clear. Oral cavity is moist. Ears reveal no drainage. Neck reveals no JVD, carotid bruits, or thyromegaly. CHEST EXAMINATION: Trachea is central. Symmetrical expansion. Lung galicia clear to auscultation and percussion. CARDIAC: Normal S1, S2 with no gallops. No murmurs ABDOMEN: Soft. Bowel sounds sluggish. No organomegaly. No abdominal bruits. Surgical site intact. Extremities: reveal no edema. No clubbing or cyanosis Neurologically awake, alert, oriented x3 with well-coordinated movements. No focal deficits noted Skin: No rash or skin lesions. Psychiatric: Coperative. Nonsuicidal Musculoskeletal: No joint swelling or deformity. Normal range of motion. - Labs CBC & Chem 7: 05/23/18 06:22 05/23/18 06:22 Labs: Abnormal Lab Results - Last 24 Hours (Table) 05/23/18 05/23/18 Range/Units 06:22 06:22 WBC 14.2 H (3.8-10.6) k/uL Hgb 11.8 L (13.0-17.5) gm/dL Hct 38.0 L (39.0-53.0) % Neutrophils # 10.7 H (1.3-7.7) k/uL Sodium 135 L (137-145) mmol/L Calcium 8.2 L (8.4-10.2) mg/dL Assessment and Plan Assessment: Adenocarcinoma of the colon status post anterior left colectomy on 05/21/2018 Hypertension. Currently blood pressure medications held. Leukocytosis likely due to inflammation reaction from surgery. Improving Acute kidney injury with creatinine level II.41. Resolved Hyperkalemia due to acute kidney injury. Hyperlipidemia DVT prophylaxis Plan: Patient will be continued on pain management with Dilaudid via epidural. Continue with IV fluids and will hold blood pressure medications due to hypotension. Continue to follow closely and symptomatic management. Follow-up CBC and BMP. Further recommendations based on the clinical course. Thank you for your consult Time with Patient: Greater than 30
--- NOTE | 2018-05-24 13:34 | P.PN ---
Subjective Progress Note Date: 05/24/18 Principal diagnosis: Adenocarcinoma the colon. Status post resection Patient is a 48-year-old male with a known history of hypertension, hyperlipidemia who recently had age appropriate cancer screening with colonoscopy on 05/10/2018 which showed invasive moderately differentiated adenocarcinoma. Patient is currently admitted to hospital for left anterior resection of the colon. Patient tolerated the procedure very well. Currently on epidural. Pain is well controlled. No complains of chest pain or shortness of breath. No fever no chills. No headache or dizziness or lightheadedness. Patient's blood pressure was low after surgery. 05/22/2018 Patient denied any complaints of worsening abdominal pain. Patient is still on epidural Dilaudid. Otherwise renal function showed creatinine increased to 2.41 , potassium level .0. Patient was given a dose of regular insulin 10 units IV and D50. We will follow up repeat potassium level. Patient is being continued on IV hydration with normal saline. No fever no chills. Patient does have leukocytosis is most likely secondary to inflammatory reaction from surgery. Patient otherwise does not have any bowel movement or flatus at this time. 05/23/2018 Patient denied any complaints of chest pain or shortness of breath. Patient was able to pass flatness. No bowel movement. Tolerating liquid diet. Otherwise renal function improved to normal level. Hyperkalemia resolved. Patient is being continued on IV hydration and currently on epidural for pain management. Patient is also on Louise catheter. Otherwise no fever no chills. No other acute overnight issues. 05/24/2018 Patient was able to pass flatus. Epidural has been discontinued. Pain is fairly controlled otherwise. No bowel movement. Tolerating liquid diet. Louise cath is being discontinued. No commerce of chest pain or shortness of breath. No fever no chills. No headache or dizziness or lightheadedness. No other acute overnight issues. Current medications reviewed. Objective - Vital Signs Vital signs: Vital Signs Temp 98.9 F 05/24/18 07:00 Pulse 89 05/24/18 07:00 Resp 17 05/24/18 07:00 BP 169/78 05/24/18 07:00 Pulse Ox 94 L 05/24/18 07:00 Intake & Output 05/23/18 05/24/18 05/24/18 18:59 06:59 18:59 Intake Total 909.6 2480 Output Total 2800 1800 Balance -1890.4 2480 -1800 Intake: Intake, IV Titration 909.6 1600 Amount Ropivacaine 400 mg 209.6 Hydromorphone (Pf) 5 mg In Sodium Chloride 0.9% 170 ml @ Per Protocol EPIDURAL .Q0M PRN Rx#: [id number] Sodium Chloride 0.9% 1, 700 1600 000 ml @ 100 mls/hr IV . Q10H [facility] Rx#:[id number] Oral 880 Output: Urine 2800 1800 Other: Voiding Method Indwelling Catheter Indwelling Catheter # Voids 3 3 - Exam PHYSICAL EXAMINATION: Patient is lying in the bed comfortably, no acute distress, awake alert and oriented.. HEENT: Normocephalic. Neck is supple. Pupils reactive. Nostrils clear. Oral cavity is moist. Ears reveal no drainage. Neck reveals no JVD, carotid bruits, or thyromegaly. CHEST EXAMINATION: Trachea is central. Symmetrical expansion. Lung galicia clear to auscultation and percussion. CARDIAC: Normal S1, S2 with no gallops. No murmurs ABDOMEN: Soft. Bowel sounds present. No organomegaly. No abdominal bruits. Surgical site intact. Extremities: reveal no edema. No clubbing or cyanosis Neurologically awake, alert, oriented x3 with well-coordinated movements. No focal deficits noted Skin: No rash or skin lesions. Psychiatric: Coperative. Nonsuicidal Musculoskeletal: No joint swelling or deformity. Normal range of motion. - Labs CBC & Chem 7: 05/23/18 06:22 05/23/18 06:22 Assessment and Plan Assessment: Adenocarcinoma of the colon status post anterior left colectomy on 05/21/2018 Hypertension. Restarted lisinopril. Leukocytosis likely due to inflammation reaction from surgery. Improving Acute kidney injury with creatinine level II.41. Resolved Hyperkalemia due to acute kidney injury. Hyperlipidemia DVT prophylaxis Plan: Patient is off Dilaudid via epidural. Continue with IV fluids . Trial void today. Her blood pressure medication, lisinopril will be restarted.. Continue to follow closely and symptomatic management. Follow-up CBC and BMP. Further recommendations based on the clinical course. Thank you for your consult Time with Patient: Greater than 30
[2018-05-24] MEDS: LISINOPRIL 20 MG TAB PO SCH (14:17)
[2018-05-24 20:56] LABS: Glucose,Whole Blood 117 mg/dL (75-99)
[2018-05-25] MEDS: LACTATED RINGERS 1,000 ML IV SCH (09:16)
[2018-05-25] MEDS: LISINOPRIL 20 MG TAB PO SCH (09:24)
[2018-05-25] MEDS: HEPARIN SODIUM,PORCINE 5,000 UNIT/ML 1 ML VIAL SQ SCH (09:24)
[2018-05-25] MEDS: SODIUM CHLORIDE 0.9% 1,000 ML IV SCH ×2 (09:24→09:27)
[2018-05-25 10:33] VITALS: BP 143/72; PULSE 85; RESP 17; TEMP 98.6
--- NOTE | 2018-05-25 13:34 | P.DS ---
Providers Date of admission: 05/21/18 09:20 Expected date of discharge: 05/25/18 Attending physician: Mathew Dozier Consults: 05/21/18 12:01 Consult Physician Routine Consulting Provider: Stephany Odell Consult Reason/Comments: Medical management Do you want consulting provider notified?: Yes Primary care physician: Shadi Cabrera [facility] Course: 48-year-old male who underwent low anterior resection for a cecal mass found during recent colonoscopy. The patient has done well postoperatively without any immediate complications. His pain has been well controlled. He is passing flatus and has had a bowel movement. He is tolerating oral intake. Denies nausea or vomiting. Pathology report reveals invasive moderate to poorly differentiated adenocarcinoma. One of 13 lymph nodes are positive for metastasis. Patient to follow up with Dr. Dozier within 1 week. Discharge Diagnosis: 1. Colon cancer, s/p low anterior resection Nurse practitioner note has been reviewed by physician. Signing provider agrees with the documented findings, assessment, and plan of care. Plan - Discharge Summary Discharge Rx Participant: No New Discharge Prescriptions: New HYDROcodone/APAP 7.5-325MG [Phoenix 7.5-325] 1 each PO Q6H PRN #12 tab PRN Reason: Pain Docusate [Colace] 100 mg PO BID #30 capsule Continue Lisinopril [Zestril] 20 mg PO DAILY Cetirizine HCl [Zyrtec] 10 mg PO DAILY PRN PRN Reason: allergies Atorvastatin [Lipitor] 20 mg PO DAILY Aspirin 81 mg PO DAILY Discharge Medication List Aspirin 81 mg PO DAILY 05/07/18 [History] Atorvastatin [Lipitor] 20 mg PO DAILY 05/07/18 [History] Cetirizine HCl [Zyrtec] 10 mg PO DAILY PRN 05/07/18 [History] Lisinopril [Zestril] 20 mg PO DAILY 05/07/18 [History] HYDROcodone/APAP 7.5-325MG [P[place] 7.5-325] 1 each PO Q6H PRN #12 tab 05/24/18 [ Rx] Docusate [Colace] 100 mg PO BID #30 capsule 05/25/18 [Rx] Follow up Appointment(s)/Referral(s): Shadi Cabrera MD [Primary Care Provider] - 1 Week Mathew Dozier MD [STAFF PHYSICIAN] - 05/29/18 4:00 pm () Patient Instructions/Handouts: Hydrocodone/Acetaminophen (By mouth), Laxative, Stool Softeners (By mouth), Soft Diet (DC), Colectomy (DC) Activity/Diet/Wound Care/Special Instructions: No driving while taking [place] No lifting over 10 pounds You may shower. No soaking or tub baths Very light activity until you are reevaluated at your follow up appointment with your surgeon Soft diet advance slowly PREVENA wound vac will be discontinued at follow up appointment on 05/29/2018
--- NOTE | 2018-05-25 16:05 | P.PN ---
Subjective Progress Note Date: 05/25/18 Principal diagnosis: Adenocarcinoma the colon. Status post resection Patient is a 48-year-old male with a known history of hypertension, hyperlipidemia who recently had age appropriate cancer screening with colonoscopy on 05/10/2018 which showed invasive moderately differentiated adenocarcinoma. Patient is currently admitted to hospital for left anterior resection of the colon. Patient tolerated the procedure very well. Currently on epidural. Pain is well controlled. No complains of chest pain or shortness of breath. No fever no chills. No headache or dizziness or lightheadedness. Patient's blood pressure was low after surgery. 05/22/2018 Patient denied any complaints of worsening abdominal pain. Patient is still on epidural Dilaudid. Otherwise renal function showed creatinine increased to 2.41 , potassium level .0. Patient was given a dose of regular insulin 10 units IV and D50. We will follow up repeat potassium level. Patient is being continued on IV hydration with normal saline. No fever no chills. Patient does have leukocytosis is most likely secondary to inflammatory reaction from surgery. Patient otherwise does not have any bowel movement or flatus at this time. 05/23/2018 Patient denied any complaints of chest pain or shortness of breath. Patient was able to pass flatness. No bowel movement. Tolerating liquid diet. Otherwise renal function improved to normal level. Hyperkalemia resolved. Patient is being continued on IV hydration and currently on epidural for pain management. Patient is also on Louise catheter. Otherwise no fever no chills. No other acute overnight issues. 05/24/2018 Patient was able to pass flatus. Epidural has been discontinued. Pain is fairly controlled otherwise. No bowel movement. Tolerating liquid diet. Louise cath is being discontinued. No commerce of chest pain or shortness of breath. No fever no chills. No headache or dizziness or lightheadedness. No other acute overnight issues. 05/25/2018 Patient denied any new complaints today. Patient did have bowel movement and also was able to void spontaneously. Pathology report showed no evidence of malignancy in the margins of the resection. 1 in 13 lymph nodes is positive for metastasis. Patient was recommended to follow with oncology as an outpatient. Following general surgery and primary physician. Otherwise patient is stable to be discharged home today. Discharge medication reconciliation was done. Current medications reviewed. Objective - Vital Signs Vital signs: Vital Signs Temp 98.6 F 05/25/18 07:00 Pulse 85 05/25/18 07:00 Resp 17 05/25/18 07:00 BP 143/72 05/25/18 07:00 Pulse Ox 92 L 05/25/18 07:00 Intake & Output 05/24/18 05/25/18 05/25/18 18:59 06:59 18:59 Intake Total 400 1350 Output Total 4225 Balance -3825 1350 Intake: Intake, IV Titration 800 Amount Sodium Chloride 0.9% 1, 800 000 ml @ 100 mls/hr IV . Q10H [facility] Rx#:[id number] Oral 400 550 Output: Urine 4225 Uretheral (Louise) 2200 Other: Voiding Method Toilet # Voids 3 - Exam PHYSICAL EXAMINATION: Patient is lying in the bed comfortably, no acute distress, awake alert and oriented.. HEENT: Normocephalic. Neck is supple. Pupils reactive. Nostrils clear. Oral cavity is moist. Ears reveal no drainage. Neck reveals no JVD, carotid bruits, or thyromegaly. CHEST EXAMINATION: Trachea is central. Symmetrical expansion. Lung galicia clear to auscultation and percussion. CARDIAC: Normal S1, S2 with no gallops. No murmurs ABDOMEN: Soft. Bowel sounds present. No organomegaly. No abdominal bruits. Surgical site intact. Extremities: reveal no edema. No clubbing or cyanosis Neurologically awake, alert, oriented x3 with well-coordinated movements. No focal deficits noted Skin: No rash or skin lesions. Psychiatric: Coperative. Nonsuicidal Musculoskeletal: No joint swelling or deformity. Normal range of motion. - Labs CBC & Chem 7: 05/23/18 06:22 05/23/18 06:22 Labs: Abnormal Lab Results - Last 24 Hours (Table) 05/24/18 Range/Units 20:44 POC Glucose (mg/dL) 117 H (75-99) mg/dL Assessment and Plan Assessment: Adenocarcinoma of the colon status post anterior left colectomy on 05/21/2018 Hypertension. Restarted lisinopril. Leukocytosis likely due to inflammation reaction from surgery. Improving Acute kidney injury with creatinine level II.41. Resolved Hyperkalemia due to acute kidney injury. Resolved. Hyperlipidemia DVT prophylaxis Plan: Patient is off Dilaudid via epidural. Continued with IV fluids . Patient did have bowel movement and able to wide spontaneously. Blood pressure is well controlled as well; Continue to follow closely and symptomatic management. Follow-up CBC and BMP. \ Patient is being discharged home today. Time with Patient: Greater than 30
== END 2018-05-25 14:15 | disposition home or self-care (01) | DRG 333 ==
LOC: 2ORMAIN 09:20 → 4SSUR 12:06
PROVIDERS: ADMIT Surgery; ATTEND Surgery
PROC: 0DTP0ZZ Resection of Rectum, Open Approach (ICD-10-PCS; 2018-05-21)
PROC: 0DTP0ZZ Resection of Rectum, Open Approach (ICD-10-PCS; principal; 2018-05-21 11:15)
DX: C18.6 Malignant neoplasm of descending colon (principal); N17.9 Acute kidney failure, unspecified; D72.829 Elevated white blood cell count, unspecified; E78.5 Hyperlipidemia, unspecified; E87.5 Hyperkalemia; I10 Essential (primary) hypertension; I95.9 Hypotension, unspecified; L29.9 Pruritus, unspecified; Z79.82 Long term (current) use of aspirin; Z79.899 Other long term (current) drug therapy; Z88.0 Allergy status to penicillin
CPT/HCPCS: 80048; 84132; 85025; 86850; 86900; 86901; 88309

== ENCOUNTER → 2018-06-13 | Outpatient (CLI) | payer MEDICAID ==
--- NOTE | 2018-06-14 09:01 | CT ---
EXAMINATION TYPE: CT ChestAbdPelvis w con DATE OF EXAM: 06/13/2018 COMPARISON: NONE HISTORY: Colon cancer. CT DLP: 3105.9 mGycm. Automated Exposure Control for Dose Reduction was Utilized. CONTRAST: CT scan of the thorax, abdomen and pelvis is performed with IV Contrast, patient injected with 100ml mL of Isovue 300. FINDINGS: LUNGS: The lungs are grossly clear, there is no concerning parenchymal mass or nodule identified. Mul tifocal subsegmental atelectasis is present. There is no pleural effusion or pneumothorax seen. The tracheobronchial tree is patent. MEDIASTINUM: There are no greater than 1 cm hilar or mediastinal lymph nodes. No pericardial effusi on is seen. Mild coronary calcifications are seen within the left anterior descending coronary arter y and circumflex coronary artery. LIVER/GB: The right hepatic lobe is slightly limited due to artifact generated due to patient body parks bitus as the patient's sides abut the gantry. No suspicious hepatic lesion is identified. No intrahep atic biliary ductal dilatation. No cholelithiasis. PANCREAS: Mild pancreatic neck and head as well as uncinate process proximal atrophy is seen. No duct al dilatation. SPLEEN: No significant abnormality is seen. No splenomegaly ADRENALS: No nodularity or thickening. KIDNEYS: No significant abnormality is seen. BOWEL: Anastomotic site is present of the sigmoid colon in the right lower quadrant due to redundancy of the sigmoid colon. No surrounding adenopathy, solid mass or dilatation to suggest anastomotic str icture. Postsurgical change is seen within the ventral abdomen subcutaneous tissues. Appendix is with in normal limits. No dilated large or small bowel. LYMPH NODES: No greater than 1cm abdominal or pelvic lymph nodes are appreciated. OSSEOUS STRUCTURES: Nonspecific sclerotic punctate focus is seen within the right femoral head, likel y related to a bone island as this is well-circumscribed. Very subtle lucency is seen of the right il iac bone measuring 5 mm on image 105. This is of indeterminate significance. Moderate multilevel dege nerative changes of the thoracic spine and mild multilevel degenerative changes of the lumbar spine w ith mild multilevel degenerative changes of the cervical thoracic junction are noted. OTHER: Minimal atherosclerosis is seen of the abdominal aorta and its branches. IMPRESSION: Status post colonic carcinoma resection with no evidence of visceral metastasis within the chest, abd omen or pelvis. There are 2 small subcentimeter osseous lesions, one 5 mm lucency of the right iliac bone, and one punctate possible bone island of the right femoral head, better indeterminant but favor ed to be benign. These can be reassessed on follow-up exams.
== END | disposition home or self-care (01) ==
LOC: RADCTMAIN 15:41
PROVIDERS: ATTEND Internal Medicine Hematology & Oncology
DX: Z08 Encounter for follow-up examination after completed treatment for malignant neoplasm (principal); M89.9 Disorder of bone, unspecified; Z85.038 Personal history of other malignant neoplasm of large intestine
CPT/HCPCS: 71260; 74177; Q9967

== ENCOUNTER 2018-06-27 13:39 | Day surgery (SDC) | payer MEDICAID ==
[2018-06-22 12:02] VITALS: BMI 44.4
--- NOTE | 2018-06-27 13:09 | P.GSHP ---
History of Present Illness H&P Date: 06/27/18 Chief Complaint: History of colon cancer This a 48-year-old male who's recently diagnosed with colon cancer. Patient presents today for Port-A-Cath placement. Past Medical History Past Medical History: Cancer, Hyperlipidemia, Hypertension Additional Past Medical History / Comment(s): Colon Cancer, RESECTION 05/21/18. History of Any Multi-Drug Resistant Organisms: None Reported Past Surgical History: Bowel Resection, Tonsillectomy Additional Past Surgical History / Comment(s): COLONOSCOPY. COLON RESECTION . Past Anesthesia/Blood Transfusion Reactions: No Reported Reaction Smoking Status: Never smoker - Past Family History Mother Family Medical History: No Reported History Medications and Allergies Home Medications Medication Instructions Recorded Confirmed Type Aspirin 81 mg PO DAILY 05/07/18 06/22/18 History Cetirizine HCl [Zyrtec] 10 mg PO DAILY PRN 05/07/18 06/22/18 History Lisinopril [Zestril] 20 mg PO DAILY 05/07/18 06/22/18 History Allergies Allergy/AdvReac Type Severity Reaction Status Date / Time Penicillins Allergy Rash/Hives Verified 06/22/18 11:42 Surgical - Exam - General well developed, well nourished, no distress - Eyes PERRL - ENT normal pinna - Neck no masses - Respiratory normal expansion - Cardiovascular Rhythm: regular - Abdomen Abdomen: soft, non tender Assessment and Plan Assessment: We'll perform Port-A-Cath placement
[~2018-06-27 13:39] MED LIST changes: +LACTATED RINGERS 1,000 ML IV SCH; +LIDOCAINE 1% 20 ML VIAL (10MG/ML) FOR IV START INTRADERMA PRN; +Pre Op ABX Message 1 EACH MISC MISCELLANE ONE; -ceFAZolin IN SWFI 2 GM/20 ML SYRINGE IVP ONE; -metroNIDAZOLE-NS PMX 500 MG in SALINE 1 100ML.BAG IVPB ONE
[2018-06-27 13:55] VITALS: TEMP 98.7
[2018-06-27] MEDS ORDERED: MIDAZOLAM 2 MG/2 ML VIAL ONE (14:34)
[2018-06-27] MEDS ORDERED: PROPOFOL 10 MG/ML 20 ML VIAL IV ONE (14:34)
[2018-06-27] MEDS ORDERED: fentaNYL (PF) 50 MCG/ML 2 ML AMP ONE (14:34)
[2018-06-27] MEDS ORDERED: KETAMINE 10 MG/ML 20 ML VIAL ONE (14:34)
[2018-06-27] MEDS ORDERED: BUPIVACAIN-EPI 0.5%-1:200,000 30 ML VIAL SQ ONE ×2 (14:57)
--- NOTE | 2018-06-27 15:19 | P.OP ---
Date of Procedure: 06/27/18 Preoperative Diagnosis: History of colon cancer Postoperative Diagnosis: History of colon cancer Procedure(s) Performed: Insertion of right subclavian Port-A-Cath Anesthesia: MAC Surgeon: Mathew Dozier Estimated Blood Loss (ml): 5 Pathology: none sent Condition: stable Disposition: PACU Description of Procedure: PPROCEDURE: The patient was placed on the operating table in the supine position. She received MAC anesthetic. The [right] chest was prepped and draped in the usual sterile fashion. The skin underneath the right clavicle was anesthetized with 1% Xylocaine and using Seldinger technique, the right subclavian vein was cannulized. The wire was placed through the needle and positioned under fluoroscopy. Next, the needle was removed and the port site was anesthetized with 1% Xylocaine. Skin was incised with #15 blade and port pocket was made using blunt and sharp dissection. Following this the catheter was attached to the sport and the port was flushed. The port was positioned into the pocket site and was secured with 3-0 Vicryl suture. The catheter was then brought out through the wire site and then the dilator sheath was placed over the wire and the dilator and the wire were removed. The catheter was placed through the sheath and the sheath was removed. The port was flushed with hep-lock solution. Skin was closed with interrupted 3-0 Vicryl sutures. Steri-Strips were applied. The patient tolerated the procedure well. The patient was sent to recovery room for chest x-ray after the procedure.
--- NOTE | 2018-06-27 15:32 | FL ---
EXAMINATION TYPE: FL guided central line placemt HISTORY: Fluoroscopy time Impression: 1. Fluoroscopy support provided to the referring physician. 1.26 minutes of fluoroscopy provided..
--- NOTE | 2018-06-27 15:48 | XR ---
EXAMINATION TYPE: XR chest 1V DATE OF EXAM: 06/27/2018 COMPARISON: NONE HISTORY: Line placement TECHNIQUE: Single frontal view of the chest is obtained. FINDINGS: There is no focal air space opacity, pleural effusion, or pneumothorax seen. The cardiac silhouette size is within normal limits. The osseous structures are intact. There is a right-sided line with the tip overlying the right paratracheal region. No overt failure. Heart is mildly prominen t. Limited inspiration. IMPRESSION: 1. Right-sided central line seen with tip overlying the region of the right paratracheal region in th e region of the SVC
[2018-06-27 16:24] VITALS: BP 130/85; PULSE 89; RESP 16
== END 2018-06-27 16:25 | disposition home or self-care (01) ==
LOC: OR 13:39
PROVIDERS: ATTEND Surgery
DX: C18.7 Malignant neoplasm of sigmoid colon (principal); Z90.49 Acquired absence of other specified parts of digestive tract; I10 Essential (primary) hypertension; E78.5 Hyperlipidemia, unspecified; Z79.82 Long term (current) use of aspirin; Z79.899 Other long term (current) drug therapy; Z88.0 Allergy status to penicillin
CPT/HCPCS: 77001; 71045; 36561; C1788; J2250; J1644; J1100; J2405; J3010; J2704

== ENCOUNTER → 2019-01-21 | Outpatient (CLI) | payer OTHER ==
[2019-01-21 14:24] LABS: African American GFR (CKD) >90 (>60 ml/min/1.73 sqM); Blood Urea Nitrogen 13 mg/dL (9-20)
--- NOTE | 2019-01-21 17:43 | CT ---
EXAMINATION TYPE: CT ChestAbdPelvis w con DATE OF EXAM: 01/21/2019 INDICATION: Colon cancer. COMPARISON: 06/13/2018 CT DLP: 3282.4 mGycm CONTRAST: Performed with Oral Contrast and with IV Contrast, patient injected with 100ml mL of Isovue 300. TECHNIQUE: Axial images at 5 mm thick sections. Reconstructed images in the coronal plane. Delayed images through the kidneys. FINDINGS: CT CHEST: Portion of the thyroid visualized is normal. No suspicious lung nodules or focal infiltrates are present. No enlarged mediastinal or hilar adenopathy is evident. The ascending aorta diameter at the level of the main pulmonary artery is 3.4 cm. The main pulmonary artery diameter at the bifurcation is 3.[address] ABDOMEN: Liver: Normal Spleen: Normal Pancreas: Normal Adrenal glands: The adrenal glands are normal. Gallbladder: Normal Kidneys: No masses are evident. No hydronephrosis is present. No cysts are present. Delayed images were obtained through the kidneys, which remain unremarkable. Aorta: Vascular calcification is within the aorta. Inferior vena cava: Normal. CT PELVIS: Loops of bowel within the abdomen and pelvis are normal. There are loops of bowel which are incom pletely distended or lack oral contrast limiting their evaluation. Appendix: Normal as visualized. Urinary bladder: Normal. Genitourinary structures: Prostate is unremarkable. Osseous structures: No suspicious lytic or sclerotic lesions. IMPRESSIONS: 1. No suspicious changes to suggest recurrent or metastatic colon cancer
== END | disposition home or self-care (01) ==
LOC: RADPROMAIN 13:34
PROVIDERS: ATTEND Internal Medicine Hematology & Oncology
DX: Z03.89 Encounter for observation for other suspected diseases and conditions ruled out (principal); C18.7 Malignant neoplasm of sigmoid colon; Z88.0 Allergy status to penicillin
CPT/HCPCS: 82565; 84520; 71260; 74177; 36415; J1642; Q9967 ×2

== ENCOUNTER → 2019-04-29 | Outpatient (CLI) | payer OTHER ==
--- NOTE | 2019-04-29 14:04 | CT ---
EXAMINATION TYPE: CT ChestAbdPelvis w con DATE OF EXAM: 04/29/2019 COMPARISON: CTs from January 21, 2019 and older study June 13, 2018 HISTORY: Colon CA follow up CT DLP: 3070.5 mGycm. Automated Exposure Control for Dose Reduction was Utilized. CONTRAST: CT scan of the thorax, abdomen and pelvis is performed with IV Contrast, patient injected with 100 mL of Isovue 300. FINDINGS: LUNGS: Low lung volumes redemonstrated. The lungs are grossly clear, there is no concerning parenchym al mass or nodule identified. There is no pleural effusion or pneumothorax seen. The tracheobronch ial tree is patent. MEDIASTINUM: There are no greater than 1 cm hilar or mediastinal lymph nodes. No cardiomegaly or pe ricardial effusion is seen. OTHER: Stable right subclavian Mediport catheter. LIVER/GB: Liver is diffusely low dense consistent with diffuse fatty infiltration. PANCREAS: No significant abnormality is seen. SPLEEN: No significant abnormality is seen. ADRENALS: No significant abnormality is seen. KIDNEYS: No significant abnormality is seen. BOWEL: The oral contrast reaches level of the splenic flexure. No suspicious small or large bowel dil atation. Sutures sigmoid colon level axial image 100 redemonstrated. GENITAL ORGANS: Scattered pelvic phleboliths bilaterally. LYMPH NODES: No greater than 1cm abdominal or pelvic lymph nodes are appreciated. OSSEOUS STRUCTURES: Slight grade 1 anterolisthesis L3 on L4. Multilevel spurring mid to lower thoraci c spine. Mild to moderate narrowing both hip joints. OTHER: No significant additional abnormality is seen. IMPRESSION: No new mass or adenopathy to suggest neoplastic recurrence.
== END | disposition home or self-care (01) ==
LOC: RADCTMAIN 11:56
PROVIDERS: ATTEND Internal Medicine Hematology & Oncology
DX: Z03.89 Encounter for observation for other suspected diseases and conditions ruled out (principal); C18.7 Malignant neoplasm of sigmoid colon; Z88.0 Allergy status to penicillin
CPT/HCPCS: 71260; 74177; Q9967

== ENCOUNTER 2019-05-28 07:03 | Day surgery (SDC) | payer OTHER ==
[2019-05-23 14:23] VITALS: BMI 43.0
[~2019-05-28 07:03] MED LIST changes: -DEXAMETHASONE SOD PHOSPHATE 10 MG/ML 1 ML VIAL IV ONE; -HEPARIN SODIUM,PORCINE 5,000 UNIT/ML 1 ML VIAL SQ ONE; -HYDROmorphone 0.5 MG/0.5 ML SYRINGE IVP PRN; -MIDAZOLAM (PF) 2 MG/2 ML VIAL IV PRN; -ONDANSETRON 4 MG/2 ML VIAL IVP ONE; -Pre Op ABX Message 1 EACH MISC MISCELLANE ONE; -SCOPOLAMINE 1.5MG/72HR PATCH TRANSDERM ONE
[2019-05-28 07:14] VITALS: TEMP 97.3
[2019-05-28] MEDS ORDERED: LACTATED RINGERS 1,000 ML IV ONE ×2 (07:20)
[2019-05-28] MEDS ORDERED: PROPOFOL 10 MG/ML 20 ML VIAL IV ONE (07:44)
--- NOTE | 2019-05-28 07:50 | P.GSHP ---
History of Present Illness H&P Date: 05/28/19 Chief Complaint: History of colon cancer This a 49-year-old male who presents today for colonoscopy. Patient has previous history of colon cancer he's had a previous low anterior resection. Past Medical History Past Medical History: Cancer, Hyperlipidemia, Hypertension Additional Past Medical History / Comment(s): Colon Cancer, RESECTION 05/21/18. History of Any Multi-Drug Resistant Organisms: None Reported Past Surgical History: Bowel Resection, Tonsillectomy Additional Past Surgical History / Comment(s): 05/21/18-bowel resection. colonoscopy Past Anesthesia/Blood Transfusion Reactions: No Reported Reaction Smoking Status: Never smoker - Past Family History Mother Family Medical History: No Reported History Medications and Allergies Home Medications Medication Instructions Recorded Confirmed Type Cetirizine HCl [Zyrtec] 10 mg PO DAILY PRN 05/07/18 05/23/19 History Lisinopril [Zestril] 20 mg PO DAILY 05/07/18 05/23/19 History Allergies Allergy/AdvReac Type Severity Reaction Status Date / Time Penicillins Allergy Rash/Hives Verified 05/23/19 14:17 Surgical - Exam Vital Signs Temp Pulse Resp BP Pulse Ox 97.3 F L 88 18 161/80 94 L 05/28/19 07:12 05/28/19 07:12 05/28/19 07:12 05/28/19 07:12 05/28/19 07:12 - General well developed, well nourished, no distress - Eyes PERRL - ENT normal pinna - Neck no masses - Respiratory normal expansion - Cardiovascular Rhythm: regular - Abdomen Abdomen: soft, non tender Assessment and Plan Assessment: History: Cancer. We'll perform colonoscopy.
--- NOTE | 2019-05-28 08:00 | P.OP ---
Date of Procedure: 05/28/19 Preoperative Diagnosis: History of colon cancer Postoperative Diagnosis: Normal colonoscopy status post low anterior section Procedure(s) Performed: Colonoscopy Anesthesia: MAC Surgeon: Mathew Dozier Pathology: none sent Condition: stable Disposition: PACU Description of Procedure: The patient's placed on the endoscopy table in the lateral position. He received IV sedation. Digital rectal exam performed which revealed no abnormalities. The prostate was symmetric without nodules. The flexible col onoscope was then placed patient anus passed throughout the entire colon. The ileocecal valve was visualized. The cecum, ascending and transverse colon appeared normal. The descending colon appeared normal. The patient had a previous sigmoid colectomy with low anterior section. The colorectal anastomosis visualized. This appeared normal. Scope was then brought back the rectum this appeared normal. Scope was withdrawn patient. There is no evidence of any recurrent colon cancer.
[2019-05-28 08:20] VITALS: BP 116/61; PULSE 86; RESP 18
== END 2019-05-28 08:31 | disposition home or self-care (01) ==
LOC: ORWHC2ENDO 07:03
PROVIDERS: ATTEND Surgery
DX: Z12.11 Encounter for screening for malignant neoplasm of colon (principal); Z85.038 Personal history of other malignant neoplasm of large intestine; Z90.49 Acquired absence of other specified parts of digestive tract; Z98.0 Intestinal bypass and anastomosis status; E78.5 Hyperlipidemia, unspecified; I10 Essential (primary) hypertension; Z98.890 Other specified postprocedural states; Z79.899 Other long term (current) drug therapy; Z88.0 Allergy status to penicillin
CPT/HCPCS: G0105; J2704; 45378

== ENCOUNTER → 2020-01-27 | Outpatient (CLI) | payer OTHER | END | disposition home or self-care (01) | LOC: LABWHC1 09:35 | PROVIDERS: ATTEND Otolaryngology | DX: K11.20 Sialoadenitis, unspecified (principal); R53.83 Other fatigue | CPT/HCPCS: 36415; 86235 ==

== ENCOUNTER → 2020-02-07 | Outpatient (CLI) | payer OTHER ==
--- NOTE | 2020-02-07 14:04 | CT ---
EXAMINATION TYPE: CT soft tissue neck w con DATE OF EXAM: 02/07/2020 8:29 AM COMPARISON: None HISTORY: Neck Swelling CT DLP: 894.4 mGycm Automated exposure control for dose reduction was used. CONTRAST: CT scan of the neck is performed following with IV Contrast, patient injected with 100 mL of Isovue 3 00. BB markers placed in areas of concern. Axial images are obtained, coronal and sagittal reformatte d images are reviewed. FINDINGS: BB markers are placed on the neck just inferior to the parotid glands bilaterally, with no evidence o f underlying mass, lymphadenopathy, or focal abnormality. Airway: No gross abnormality seen. Parotid/submandibular glands: No gross abnormality seen. Carotid/Vascular Structures: Patent. Osseous Structures: Degenerative changes of the cervicothoracic spine. Other: Soft tissue density within the bilateral external auditory canals likely cerumen. Left maxilla ry sinus mucosal retention cyst versus polyp. Right maxillary sinus mucosal thickening. IMPRESSION: 1. No focal abnormality or CT explanation for patients neck swelling. 2. Significant cerumen within the bilateral external auditory canals.
== END | disposition home or self-care (01) ==
LOC: RADCTMAIN 07:45
PROVIDERS: ATTEND Otolaryngology
DX: H61.23 Impacted cerumen, bilateral (principal); Z88.0 Allergy status to penicillin
CPT/HCPCS: 70491; Q9967

== ENCOUNTER → 2020-04-29 | Outpatient (CLI) | payer OTHER ==
--- NOTE | 2020-04-29 12:16 | CT ---
EXAMINATION TYPE: CT abdomen pelvis w con DATE OF EXAM: 04/29/2020 COMPARISON: INDICATION: Colon CA DLP: 4236.4 mGycm, Automated exposure control for dose reduction was used. CONTRAST: 100 mL of Isovue 300. Study performed with Oral Contrast TECHNIQUE: Axial images were obtained from above the diaphragm to the pubic rami in the axial plane a t 5 mm thick sections. Reconstructed images are reviewed on the computer in the coronal plane. FINDINGS: Limited CT sections are obtained the lung bases. The lung bases are clear. Mild coronary artery denise cification is present. CT ABDOMEN: Liver: Normal Spleen: Normal Pancreas: Normal Adrenal glands: The adrenal glands are normal. Gallbladder: Normal Kidneys: No masses are evident. No hydronephrosis is present. No cysts are present. Delayed images were obtained through the kidneys, which remain unremarkable. Aorta: Minimal Vascular calcification is within the aorta. Inferior vena cava: Normal. CT PELVIS: Loops of bowel within the abdomen and pelvis are normal. No stenosis at the anastomosis within the r ight hemipelvis is evident. No recurrent masses are evident. There are loops of bowel which are inc ompletely distended or lack oral contrast limiting their evaluation. Appendix: Normal as visualized. Urinary bladder: Normal. Genitourinary structures: Prostate is normal. Osseous structures: No suspicious lytic or sclerotic lesions. Lymphadenopathy: No suspicious lymphadenopathy is evident. IMPRESSIONS: 1. No suspicious changes CT abdomen pelvis suggest metastatic or recurrent colon cancer
== END | disposition home or self-care (01) ==
LOC: RADCTMAIN 08:45
PROVIDERS: ATTEND Internal Medicine Hematology & Oncology
DX: C18.7 Malignant neoplasm of sigmoid colon (principal); Z88.0 Allergy status to penicillin
CPT/HCPCS: 74177; Q9967 ×2

== ENCOUNTER → 2020-05-07 | Outpatient (CLI) | payer OTHER ==
--- NOTE | 2020-05-07 08:28 | US ---
EXAMINATION TYPE: US abdomen complete DATE OF EXAM: 05/07/2020 COMPARISON: NONE CLINICAL HISTORY: K81.9 Cholecystitis. EXAM MEASUREMENTS: Liver Length: 15.5 cm Gallbladder Wall: 0.4 cm CBD: 0.6 cm Spleen: 8.9 cm Right Kidney: 9.9 x 6.0 x 5.0 cm Left Kidney: 11.2 x 5.4 x 5.0 cm Morbidly obese patient with severe overlying bowel gas. Study limited to the point of being non-diagn ostic. Pancreas: Obscured by bowel gas Liver: unable to visualize landmarks Gallbladder: Obscured by overlying bowel gas Evidence for sonographic Manley's sign: no CBD: very limited visualization Spleen: very limited visualization Right Kidney: very limited visualization Left Kidney: very limited visualization Upper IVC: not seen Abd Aorta: mid visualized, other portions obscured by bowel gas IMPRESSION: 1. Examination is limited. No suspicious abnormalities are identified to the level of visibility.
== END | disposition home or self-care (01) ==
LOC: RADUSWWP 07:25
PROVIDERS: ATTEND Family Medicine
DX: C18.9 Malignant neoplasm of colon, unspecified (principal); C77.2 Secondary and unspecified malignant neoplasm of intra-abdominal lymph nodes; K81.9 Cholecystitis, unspecified; R10.11 Right upper quadrant pain
CPT/HCPCS: 76700

== ENCOUNTER 2020-06-18 07:41 | Day surgery (SDC) | payer OTHER ==
[2020-06-16 13:11] VITALS: BMI 43.6
[~2020-06-18 07:41] MED LIST changes: -LIDOCAINE 1% 20 ML VIAL (10MG/ML) FOR IV START INTRADERMA PRN
[2020-06-18 08:05] VITALS: TEMP 97.2
[2020-06-18] MEDS ORDERED: LIDOCAINE 1% (10MG/ML) FOR IV START INTRADERMA ONE (08:05)
[2020-06-18] MEDS ORDERED: PROPOFOL 10 MG/ML 20 ML VIAL IV ONE (08:29)
--- NOTE | 2020-06-18 08:32 | P.GSHP ---
History of Present Illness H&P Date: 06/18/20 Chief Complaint: History of colon cancer Is a 50-year-old male presents today for colonoscopy. Patient history: Cancer. He's had a previous low anterior resection. Past Medical History Past Medical History: Cancer, Hyperlipidemia, Hypertension Additional Past Medical History / Comment(s): hx. Colon Cancer, & bowel RESECTION 05/21/18, chemo after surg. History of Any Multi-Drug Resistant Organisms: None Reported Past Surgical History: Bowel Resection, Tonsillectomy Additional Past Surgical History / Comment(s): 05/21/18-bowel resection, mediport insertion,. colonoscopy Past Anesthesia/Blood Transfusion Reactions: No Reported Reaction Smoking Status: Never smoker - Past Family History Mother Family Medical History: No Reported History Medications and Allergies Home Medications Medication Instructions Recorded Confirmed Type lisinopriL [Zestril] 20 mg PO DAILY 05/07/18 06/18/20 History Allergies Allergy/AdvReac Type Severity Reaction Status Date / Time Penicillins Allergy Rash/Hives Verified 06/18/20 07:55 Surgical - Exam Vital Signs Temp Pulse Resp BP Pulse Ox 97.2 F L 97 16 149/75 96 06/18/20 08:04 06/18/20 08:04 06/18/20 08:04 06/18/20 08:04 06/18/20 08:04 - General well developed, well nourished, no distress - Eyes PERRL - ENT normal pinna - Neck no masses - Respiratory normal expansion - Cardiovascular Rhythm: regular - Abdomen Abdomen: soft, non tender Assessment and Plan Assessment: History of colon cancer. We'll perform colonoscopy.
--- NOTE | 2020-06-18 08:44 | P.OP ---
Date of Procedure: 06/18/20 Preoperative Diagnosis: History of colon cancer Postoperative Diagnosis: Normal colonoscopy status post low anterior resection Procedure(s) Performed: Colonoscopy Anesthesia: MAC Surgeon: Mathew Dozier Pathology: none sent Condition: stable Disposition: PACU Description of Procedure: The patient's placed on the endoscopy table in the lateral position. He received IV sedation. Digital rectal exam is performed which revealed no abnormality. The flexible colonoscope was then placed patient anus passed rotator entire colon. The ileocecal valve was visualized. The cecum, ascending and transverse colon appeared normal. The descending colon was normal. The patient a previous low anterior section. The colorectal anastomosis was visualized. This was without evidence of scarring or inflammation. The rectum appeared normal. Scope was withdrawn for patient.
[2020-06-18 09:14] VITALS: BP 123/75; PULSE 86; RESP 18
== END 2020-06-18 09:20 | disposition home or self-care (01) ==
LOC: ORWHC2ENDO 07:41
PROVIDERS: ATTEND Surgery
DX: Z12.11 Encounter for screening for malignant neoplasm of colon (principal); E78.5 Hyperlipidemia, unspecified; I10 Essential (primary) hypertension; E66.01 Morbid (severe) obesity due to excess calories; Z85.038 Personal history of other malignant neoplasm of large intestine; Z90.49 Acquired absence of other specified parts of digestive tract; Z92.21 Personal history of antineoplastic chemotherapy; Z90.89 Acquired absence of other organs; Z98.890 Other specified postprocedural states; Z79.899 Other long term (current) drug therapy; Z88.0 Allergy status to penicillin; Z68.41 Body mass index [BMI] 40.0-44.9, adult; Z98.0 Intestinal bypass and anastomosis status
CPT/HCPCS: J2704; G0105; 45378

== ENCOUNTER 2020-06-23 07:51 | Day surgery (SDC) | payer OTHER ==
[2020-06-17 09:13] VITALS: BMI 43.6
[~2020-06-23 07:51] MED LIST changes: +ACETAMINOPHEN TAB 500 MG TAB PO PRN; +DEXAMETHASONE SOD PHOSPHATE 4 MG/ML 1 ML VIAL IV ONE; +HEPARIN SODIUM,PORCINE 5,000 UNIT/ML 1 ML VIAL SQ PRN; +HYDROmorphone 0.5 MG/0.5 ML SYRINGE IVP PRN; +LIDOCAINE 1% (10MG/ML) FOR IV START INTRADERMA PRN; +MIDAZOLAM 2 MG/2 ML VIAL IV PRN; +ONDANSETRON 4 MG/2 ML VIAL IVP ONE; +ceFAZolin 3 GM in SODIUM CHLORIDE 0.9% 100 ML IVPB PRN
[2020-06-23 08:20] VITALS: RESP 16; TEMP 98
--- NOTE | 2020-06-23 12:18 | P.GSHP ---
History of Present Illness H&P Date: 06/23/20 Chief Complaint: History of colon cancer This a 50-year-old male. History colon cancer. Patient presents today for removal of Port-A-Cath Past Medical History Past Medical History: Cancer, Hyperlipidemia, Hypertension Additional Past Medical History / Comment(s): hx. Colon Cancer, & bowel RESECTION 05/21/18, chemo after surg. History of Any Multi-Drug Resistant Organisms: None Reported Past Surgical History: Bowel Resection, Tonsillectomy Additional Past Surgical History / Comment(s): 05/21/18-bowel resection, mediport insertion,. colonoscopy Past Anesthesia/Blood Transfusion Reactions: No Reported Reaction Smoking Status: Never smoker - Past Family History Mother Family Medical History: No Reported History Medications and Allergies Home Medications Medication Instructions Recorded Confirmed Type lisinopriL [Zestril] 20 mg PO DAILY 05/07/18 06/23/20 History Allergies Allergy/AdvReac Type Severity Reaction Status Date / Time Penicillins Allergy Rash/Hives Verified 06/23/20 08:07 Surgical - Exam Vital Signs Temp Pulse Resp BP Pulse Ox 98.0 F 94 16 140/73 95 06/23/20 08:07 06/23/20 08:07 06/23/20 08:07 06/23/20 08:07 06/23/20 08:07 - General well developed, well nourished, no distress - Eyes PERRL - ENT normal pinna - Neck no masses - Respiratory normal expansion - Cardiovascular Rhythm: regular - Abdomen Abdomen: soft, non tender Assessment and Plan Assessment: History of colon cancer. We'll perform removal of Port-A-Cath
[2020-06-23] MEDS ORDERED: fentaNYL (PF) 50 MCG/ML 2 ML AMP ONE (12:25)
[2020-06-23] MEDS ORDERED: KETAMINE 10 MG/ML 20 ML VIAL ONE (12:25)
[2020-06-23] MEDS ORDERED: PROPOFOL 10 MG/ML 20 ML VIAL IV ONE (12:25)
[2020-06-23] MEDS ORDERED: MIDAZOLAM 2 MG/2 ML VIAL ONE (12:25)
[2020-06-23] MEDS ORDERED: BUPIVACAINE-EPI 0.5%-1:200,000 10 ML VIAL SQ ONE (12:43)
--- NOTE | 2020-06-23 12:56 | P.OP ---
Date of Procedure: 06/23/20 Preoperative Diagnosis: Colon cancer Postoperative Diagnosis: Colon cancer Procedure(s) Performed: Removal of Port-A-Cath Anesthesia: MAC Surgeon: Mathew Dozier Pathology: none sent Condition: stable Disposition: PACU Description of Procedure: The patient's placed on the operative table in supine position. He received general anesthesia. His chest was prepped and draped sterile fashion. The patient appears right quadrant Port-A-Cath. The skin incision was made over the port site and using cautery the port was dissected free and sent to pathology. There was extreme suspected is no bleeding seen. The skin was closed interrupted 3-0 Monocryl suture. Dermabond was applied. Patient top she will was sent to recovery room stable condition.
[2020-06-23 13:24] VITALS: BP 130/83; PULSE 99
== END 2020-06-23 13:31 | disposition home or self-care (01) ==
LOC: OR 07:51
PROVIDERS: ATTEND Surgery
DX: Z45.2 Encounter for adjustment and management of vascular access device (principal); C18.9 Malignant neoplasm of colon, unspecified; E78.5 Hyperlipidemia, unspecified; I10 Essential (primary) hypertension; E66.01 Morbid (severe) obesity due to excess calories; Z90.49 Acquired absence of other specified parts of digestive tract; Z92.21 Personal history of antineoplastic chemotherapy; Z90.89 Acquired absence of other organs; Z98.890 Other specified postprocedural states; Z79.899 Other long term (current) drug therapy; Z88.0 Allergy status to penicillin; Z68.41 Body mass index [BMI] 40.0-44.9, adult
CPT/HCPCS: 36590; J2250; J1644; J1100; J0690; J2405; J3010; J2704

== ENCOUNTER 2020-06-29 14:44 | Emergency (ER) | payer OTHER ==
[2020-06-29 15:05] VITALS: RESP 18; TEMP 98.3
[2020-06-29] MEDS ORDERED: DIAZEPAM 5 MG/ML 2 ML INJ IM ONE (15:39)
[2020-06-29 16:11] VITALS: BP 133/86; PULSE 77
--- NOTE | 2020-06-29 16:34 | ED ---
Back Pain HPI - General Chief Complaint: Back Pain/Injury Stated Complaint: Back pain Time Seen by Provider: 06/29/20 15:17 Source: patient Limitations: no limitations - History of Present Illness Initial Comments: Patient is a 50-year-old male presenting to emergency Department with complaints of back spasms x 2 days. Patient states he woke up 2 days ago in the morning and had some mild right-sided low back pain. Patient did not think much of it but throughout the day started having some spasms of the low back which have now increased up his back. He states the pain is minimal but that the spasms and tightness that is causing him discomfort. He states he did try some Tylenol without any improvement. He denies any falls or trauma. He does have history of colon cancer, this is in remission now. Any abdominal pain, no fevers, no nausea or vomiting. He denies any numbness and tingling into his extremities, no saddle paresthesias, no bowel or bladder incontinence. He denies any chest pain or shortness of breath. He has no further complaints at this time. Upon arrival to the ER, his vitals are stable. - Related Data Home Medications Medication Instructions Recorded Confirmed lisinopriL [Zestril] 20 mg PO DAILY 05/07/18 06/23/20 Previous Rx's Medication Instructions Recorded diazePAM [Valium] 5 mg PO BID PRN #5 tab 06/29/20 Allergies Allergy/AdvReac Type Severity Reaction Status Date / Time Penicillins Allergy Rash/Hives Verified 06/29/20 15:05 Review of Systems ROS Statement: Those systems with pertinent positive or pertinent negative responses have been documented in the HPI. ROS Other: All systems not noted in ROS Statement are negative. Past Medical History Past Medical History: Cancer, Hyperlipidemia, Hypertension Additional Past Medical History / Comment(s): hx. Colon Cancer, & bowel RESECTION 05/21/18, chemo after surg. History of Any Multi-Drug Resistant Organisms: None Reported Past Surgical History: Bowel Resection, Tonsillectomy Additional Past Surgical History / Comment(s): 05/21/18-bowel resection, mediport insertion,. colonoscopy Past Anesthesia/Blood Transfusion Reactions: No Reported Reaction Past Psychological History: No Psychological Hx Reported Smoking Status: Never smoker Past Alcohol Use History: None Reported Past Drug Use History: None Reported - Past Family History Mother Family Medical History: No Reported History General Exam - General Exam Comments Initial Comments: GENERAL: Patient is well-developed and well-nourished. Patient is nontoxic and in no acute distress. HEAD: Atraumatic, normocephalic. EYES: Pupils equal round and reactive to light, extraocular movements intact, sclera anicteric, conjunctiva are normal. Eyelids were unremarkable. ENT: TMs normal, nares patent, oropharynx clear without exudates. Moist mucous membranes. NECK: Normal range of motion, supple without lymphadenopathy or JVD. LUNGS: Unlabored respirations. Breath sounds clear to auscultation bilaterally and equal. No wheezes rales or rhonchi. HEART: Regular rate and rhythm without murmurs, rubs or gallops. ABDOMEN: Soft, nontender, normoactive bowel sounds. No guarding, no rebound. No masses appreciated. : Deferred MUSCULOSKELETAL: Normal extremities with adequate strength and normal range of motion, no pitting or edema. No clubbing or cyanosis. He has full trunk range of motion. No midline tenderness of the entire back. He has some mild discomfort of the right lumbar paraspinals. NEUROLOGICAL: Patient is alert and oriented x 3. Motor and sensory are also intact. Cranial nerves II through XII grossly intact. Symmetrical smile. Normal speech, normal gait. PSYCH: Normal mood, normal affect. SKIN: Warm, Dry, normal turgor, no rashes or lesions noted. Limitations: no limitations Course Vital Signs 06/29/20 06/29/20 15:00 16:08 Temperature 98.3 F Pulse Rate 94 77 Respiratory 18 18 Rate Blood Pressure 130/89 133/86 O2 Sat by Pulse 99 93 L Oximetry Medical Decision Making - Medical Decision Making Patient is a 50-year-old male here for back spasms 2 days. He has some mild right lower back pain, no acute findings on exam. No acute neuro deficits, no signs of cauda equina. I did give him some Valium in the ER, he states it did help with the spasms. He continues to have full range of motion. He does have a follow-up with his doctor in 2 days. I will send him home with a few tablets to take at night for further spasms. Patient is stable for discharge. Patient is in agreement with this plan of care. Return parameters were discussed with the patient and they verbalized understanding. Case discussed with Dr. Daigle. Disposition Clinical Impression: Back muscle spasm Disposition: HOME SELF-CARE Condition: Stable Instructions (If sedation given, give patient instructions): Muscle Spasm (ED) Additional Instructions: Please return to the Emergency Department if symptoms worsen or any other concerns. May take additional medication at night for further spasms. Please follow-up with your regular doctor as discussed. Prescriptions: diazePAM [Valium] 5 mg PO BID PRN #5 tab PRN Reason: Spasms Is patient prescribed a controlled substance at d/c from ED?: No Referrals: Dl Bright MD [Primary Care Provider] - 1-2 days
== END 2020-06-29 16:43 | disposition home or self-care (01) ==
LOC: EC 14:44
DX: M62.830 Muscle spasm of back (principal); M54.5 Low back pain; E78.5 Hyperlipidemia, unspecified; I10 Essential (primary) hypertension; Z79.899 Other long term (current) drug therapy; Z88.0 Allergy status to penicillin; Z85.038 Personal history of other malignant neoplasm of large intestine; Z92.21 Personal history of antineoplastic chemotherapy; Z90.49 Acquired absence of other specified parts of digestive tract
CPT/HCPCS: 96372; 99282

== ENCOUNTER → 2020-07-08 | Outpatient (CLI) | payer OTHER ==
--- NOTE | 2020-07-08 08:52 | US ---
EXAMINATION TYPE: US gallbladder DATE OF EXAM: 07/08/2020 COMPARISON: NONE CLINICAL HISTORY: 50-year-old male R10.84 ABDOMINAL PAIN. TECHNIQUE: Multiple sonographic images of the right upper quadrant are obtained. FINDINGS: Expressive Therapist notes: Pain, exam limited due to body habitus and overlying bowel gas EXAM MEASUREMENTS: Liver Length: 18.7 cm Gallbladder Wall: .3 cm CBD: .6 cm Right Kidney: 11.4 x 8.6 x 5.3 cm Pancreas: Obscured by bowel gas Liver: Increased attenuation, very limited limited Gallbladder: No obvious calculi or obvious hydropic change. Evidence for sonographic Manley's sign: No CBD: Upper limits of normal. Right Kidney: Limited detailed assessment. No evident hydronephrosis. IMPRESSION: Very limited exam due to patient body habitus and bowel gas. Echogenic liver suggests hepatic steatos is. No gallstones or ancillary findings of acute cholecystitis. The bile duct is upper limits of norm al in caliber at 6 mm. This may chronic for the patient. Correlate with alkaline phosphatase and bili richardson levels.
== END | disposition home or self-care (01) ==
LOC: RADUSWWP 06:56
PROVIDERS: ATTEND Surgery
DX: R14.3 Flatulence (principal); R93.2 Abnormal findings on diagnostic imaging of liver and biliary tract
CPT/HCPCS: 76705

== ENCOUNTER → 2020-07-09 | Outpatient (CLI) | payer OTHER ==
--- NOTE | 2020-07-09 08:57 | NM ---
Nuclear medicine hepatobiliary scan. HISTORY: Pain. DOSAGE: The patient received 8 ounces of ensure plus and 5.0 mCi of Technetium 99m Choletec. FINDINGS: There is normal hepatic extraction. The gallbladder is seen by 40 minutes. There is bilia ry to bowel clearance by 20 minutes. Ejection fraction is 69%. IMPRESSION: 1. Normal hepatobiliary exam
== END ==
LOC: RADNMMAIN 06:53
PROVIDERS: ATTEND Surgery
DX: R10.9 Unspecified abdominal pain (principal)
CPT/HCPCS: 78227; A9537; J2805

== ENCOUNTER → 2020-08-26 | Outpatient (CLI) | payer OTHER ==
--- NOTE | 2020-08-26 12:32 | CT ---
EXAMINATION TYPE: CT ChestAbdPelvis w con DATE OF EXAM: 08/26/2020 COMPARISON: Prior CT abdomen and pelvis April 29, 2020 and older studies HISTORY: follow up for colon CA CT DLP: 4597.2 mGycm. Automated Exposure Control for Dose Reduction was Utilized. CONTRAST: CT scan of the thorax, abdomen and pelvis is performed with oral and with IV Contrast, patient inject ed with 100 mL of Isovue 300. FINDINGS: LUNGS: Low lung volumes redemonstrated. The lungs remain grossly clear, there is no concerning marrow parenchymal mass or nodule identified. There is no pleural effusion or pneumothorax seen. The tra cheobronchial tree is patent. MEDIASTINUM: There are no greater than 1 cm hilar or mediastinal lymph nodes. No cardiomegaly or pe ricardial effusion is seen. Some coronary artery calcification is redemonstrated. LIVER/GB: Liver remains diffusely low dense consistent with diffuse fatty infiltration. PANCREAS: No significant abnormality is seen. SPLEEN: No significant abnormality is seen. ADRENALS: No significant abnormality is seen. KIDNEYS: Mild to moderately distended bladder on current study. BOWEL: The oral contrast reaches level of the somewhat redundant sigmoid colon. No suspicious small o r large bowel dilatation. Sutures redundant sigmoid colon right midabdomen axial image 94 are redemon strated. GENITAL ORGANS: Scattered pelvic phleboliths bilaterally. LYMPH NODES: No greater than 1cm abdominal or pelvic lymph nodes are appreciated. OSSEOUS STRUCTURES: Slight grade 1 anterolisthesis L3 on L4. Multilevel spurring mid to lower thoraci c spine. Moderate disc space narrowing and vacuum disc phenomenon L4-L5 level redemonstrated Mild to moderate narrowing both hip joints. Multilevel spurring in the spine redemonstrated. Multilevel facet arthropathy mid to lower lumbar spine. Stable sclerotic focus right hip coronal image 59 favoring be nign bone island. OTHER: No significant additional abnormality is seen. IMPRESSION: No suspicious new mass or adenopathy to suggest neoplastic recurrence.
== END | disposition home or self-care (01) ==
LOC: RADCTMAIN 09:29
PROVIDERS: ATTEND Internal Medicine Hematology & Oncology
DX: C18.7 Malignant neoplasm of sigmoid colon (principal); Z88.0 Allergy status to penicillin
CPT/HCPCS: 71260; 74177; Q9967 ×2

== ENCOUNTER → 2021-01-01 | Outpatient (CLI) | payer OTHER ==
--- NOTE | 2021-01-01 11:17 | CT ---
EXAMINATION TYPE: CT ChestAbdPelvis wo/w con DATE OF EXAM: 01/01/2021 COMPARISON: 08/26/2020 HISTORY: Colon cancer CT DLP: 7565.1 mGycm CONTRAST: CT scan of the chest, abdomen and pelvis is performed with Oral Contrast and without and with IV Cont rast, patient injected with 100 mL of Isovue 300. CT Chest: LUNGS: The lungs are clear and free of infiltrate or atelectasis. No pulmonary nodule or mass is det ected. No pleural effusion or CT evidence of interstitial lung disease. MEDIASTINUM: Thoracic aorta is of normal caliber. The heart is not enlarged. No evidence for media stinal mass or adenopathy. HILAR STRUCTURES: No evidence for mass. No hilar adenopathy is appreciated. OTHER: No significant abnormality. CONTRAST CT ABDOMEN AND PELVIS FINDINGS: LIVER/GB: No calcified gallstones. No space occupying hepatic lesion. Biliary tree is of normal ca liber. PANCREAS: No inflammation. No distinct mass. SPLEEN: No splenic enlargement. No lesion seen. ADRENALS: No nodule. No thickening. KIDNEYS/BLADDER: No hydronephrosis. No nephrolithiasis. No distinct renal mass. BOWEL: Normal appendix. Normal bowel caliber. No inflammation. No recurrent mass identified. GENITAL ORGANS: No gross abnormality. LYMPH NODES: No greater than 1cm abdominal or pelvic lymph nodes are appreciated. AORTA: No significant abnormality. OSSEOUS STRUCTURES: Stable degenerative changes lumbar spine. OTHER: No significant additional abnormality is seen. IMPRESSION: 1. No evidence for metastatic disease or recurrent disease at this time.
== END | disposition home or self-care (01) ==
LOC: RADCTMAIN 09:23
PROVIDERS: ATTEND Internal Medicine Hematology & Oncology
DX: C18.9 Malignant neoplasm of colon, unspecified (principal)
CPT/HCPCS: 71270; 74178; Q9967

== ENCOUNTER → 2021-06-22 | Outpatient (CLI) | payer OTHER ==
--- NOTE | 2021-06-22 17:38 | MR ---
EXAMINATION TYPE: MR lumbar spine wo con DATE OF EXAM: 06/22/2021 COMPARISON: None HISTORY: 51-year-old male M54.16 Radiculopathy, low back pain, numbness in feet TECHNIQUE: Multiplanar, multisequence images of the lumbar spine were acquired without IV contrast. FINDINGS: There is Modic type II degenerative fatty endplate change at L4-L5. Otherwise, no suspicious bone mar row replacement. Vertebral body heights are preserved. Advanced hypertrophic facet arthropathy especially mid lumbar spine with degenerative grade 1 anterol isthesis L3-L4. Moderate degenerative disc disease L3-L4 and L4-L5 with desiccated, narrowed, and bulging discs. Liga mentum flavum thickening also present along the mid lumbar spine along with a congenital spinal canal stenosis and AP canal dimension narrowing down to 8 mm. Conus medullaris is normal. At T12-L1, mild disc bulge. No canal or foraminal stenosis. At L1-L2, mild disc bulge and prominent dorsal epidural fat. There is mild circumferential attenuatio n of the thecal sac without significant neuroforaminal stenosis. At L2-L3, there is disc bulge, prominent dorsal epidural fat, and congenital spinal canal narrowing. Bilateral facet arthropathy. Changes result in moderate attenuation of the thecal sac. Only minimal C SF signal is seen at this level. Mild bilateral neural foraminal stenosis. At L3-L4, advanced hypertrophic facet arthropathy and ligamentum flavum thickening with grade 1 anter olisthesis. There is congenital spinal canal stenosis and overall moderate to severe focal spinal can al stenosis at this level. Mild left and moderate right neuroforaminal stenosis. Opposite L4, there is moderate overall equal sac compression due to congenital canal narrowing. At L4-L5, disc bulge with facet arthropathy and congenital canal narrowing. Findings contribute to a mild overall attenuation of the thecal sac. Moderate right neuroforaminal stenosis and mild on the le ft. At L5-S1, no significant canal or foraminal stenosis. No prevertebral or paravertebral soft tissue abnormality. IMPRESSION: 1. Congenital spinal canal stenosis upper and mid lumbar spine with narrowing down to 8 mm AP canal d imension. 2. Advanced hypertrophic facet arthropathy and ligamentum flavum thickening especially mid lumbar spi ne. Moderate degenerative disc disease L3-L4 and L4-L5. 3. Degenerative grade 1 anterolisthesis L3-L4. There is a moderate to severe focal spinal canal steno sis at this level. 4. Moderate overall compression of the thecal sac at L2-L3 secondary to the spondylotic changes and c ongenital canal narrowing. Mild overall narrowing at L1-L2, moderate at L4, and mild at L4-L5. 5. Variable mild and moderate neuroforaminal stenoses as outlined above.
== END | disposition home or self-care (01) ==
LOC: RADMRIMAIN 11:45
PROVIDERS: ATTEND Nurse Practitioner Family
DX: M51.16 Intervertebral disc disorders with radiculopathy, lumbar region (principal); M47.26 Other spondylosis with radiculopathy, lumbar region; M99.73 Connective tissue and disc stenosis of intervertebral foramina of lumbar region; Q76.49 Other congenital malformations of spine, not associated with scoliosis
CPT/HCPCS: 72148

== ENCOUNTER → 2021-07-13 | Outpatient (CLI) | payer OTHER ==
--- NOTE | 2021-07-13 13:59 | CT ---
EXAMINATION TYPE: CT ChestAbdPelvis w con DATE OF EXAM: 07/13/2021 COMPARISON: Prior CT January 01, 2021 and older CTs HISTORY: colon CA CT DLP: 2201 mGycm. Automated Exposure Control for Dose Reduction was Utilized. CONTRAST: CT scan of the thorax, abdomen and pelvis is performed with oral and with IV Contrast, patient inject ed with 100 mL of Isovue 300. FINDINGS: Evaluation is suboptimal due to artifact from patient's large body habitus. LUNGS: Low lung volumes redemonstrated. Poor inspiration on current study. Overall Mosaic attenuation makes evaluation for tiny nodules suboptimal. No definitive new greater than 5 mm pulmonary nodules and/or masses. There is no pleural effusion or pneumothorax seen. The tracheobronchial tree is pat ent. MEDIASTINUM: There are no new greater than 1 cm hilar or mediastinal lymph nodes. No cardiomegaly o r pericardial effusion is seen. Mild coronary artery calcification is redemonstrated. LIVER/GB: Liver remains diffusely low dense consistent with diffuse fatty infiltration. PANCREAS: No significant abnormality is seen. SPLEEN: No significant abnormality is seen. ADRENALS: No significant abnormality is seen. KIDNEYS: Mildly distended bladder on current study. BOWEL: The oral contrast reaches level of the splenic flexure on current study. No suspicious small o r large bowel dilatation. Normal contrast-filled appendix is redemonstrated. Somewhat redundant sigmo id colon again seen with surgical sutures right pelvis axial image 99 redemonstrated. No new suspicio us mass or narrowing. GENITAL ORGANS: Scattered pelvic phleboliths bilaterally are redemonstrated. LYMPH NODES: No greater than 1cm abdominal or pelvic lymph nodes are appreciated. OSSEOUS STRUCTURES: Slight grade 1 anterolisthesis L3 on L4. Multilevel spurring mid to lower thoraci c spine. Moderate disc space narrowing and vacuum disc phenomenon L4-L5 level redemonstrated Mild to moderate narrowing both hip joints. Multilevel spurring in the spine redemonstrated. Multilevel facet arthropathy mid to lower lumbar spine. Stable sclerotic focus right hip coronal image 66 inferior fe moral neck level favoring benign bone island. OTHER: No significant additional abnormality is seen. IMPRESSION: Slightly Suboptimal study due to artifact related to large body habitus. No suspicious ne w mass or adenopathy to suggest active neoplastic recurrence.
== END | disposition home or self-care (01) ==
LOC: RADCTMAIN 11:31
PROVIDERS: ATTEND Internal Medicine Hematology & Oncology
DX: C18.7 Malignant neoplasm of sigmoid colon (principal)
CPT/HCPCS: 71260; 74177; Q9967

== ENCOUNTER → 2021-12-29 | Outpatient (CLI) | payer OTHER ==
--- NOTE | 2021-12-29 15:02 | CT ---
EXAMINATION TYPE: CT ChestAbdPelvis w con DATE OF EXAM: 12/29/2021 INDICATION: Neoplasm of Colon COMPARISON: 07/13/2021 CT DLP: 4899.7 mGycm CONTRAST: Performed with Oral Contrast and with IV Contrast, patient injected with 100 mL of Isovue 300. TECHNIQUE: Axial images at 5 mm thick sections. Reconstructed images in the coronal plane. Delayed images through the kidneys. FINDINGS: CT CHEST: Portion of the thyroid visualized is normal. No suspicious lung nodules or focal infiltrates are present. No enlarged mediastinal or hilar adenopathy is evident. The ascending aorta diameter at the level of the main pulmonary artery is 3.5 cm. The main pulmonary artery diameter at the bifurcation is 2.0 cm. Intimal coronary artery calcification is present. CT ABDOMEN: Liver: Normal Spleen: Normal Pancreas: Normal Adrenal glands: The adrenal glands are normal. Gallbladder: Normal Kidneys: No masses are evident. No hydronephrosis is present. No cysts are present. Delayed images were obtained through the kidneys, which remain unremarkable. Aorta: Normal Inferior vena cava: Normal. CT PELVIS: Loops of bowel within the abdomen and pelvis are normal. This study is without oral contrast limi ting bowel evaluation. Appendix: Normal as visualized. Urinary bladder: Normal. Genitourinary structures: Prostate is slightly prominent Osseous structures: No suspicious lytic or sclerotic lesions. No suspicious adenopathy is evident. IMPRESSIONS: 1. No suspicious changes to suggest recurrent or metastatic colon cancer.
== END | disposition home or self-care (01) ==
LOC: RADCTMAIN 09:29
PROVIDERS: ATTEND Internal Medicine Hematology & Oncology
DX: C18.7 Malignant neoplasm of sigmoid colon (principal); Z03.89 Encounter for observation for other suspected diseases and conditions ruled out
CPT/HCPCS: 71260; 74177; Q9967 ×2

== ENCOUNTER 2022-02-10 09:46 | Day surgery (SDC) | payer OTHER ==
[~2022-02-10 09:46] MED LIST changes: -ACETAMINOPHEN TAB 500 MG TAB PO PRN; -DEXAMETHASONE SOD PHOSPHATE 4 MG/ML 1 ML VIAL IV ONE; -HEPARIN SODIUM,PORCINE 5,000 UNIT/ML 1 ML VIAL SQ PRN; -HYDROmorphone 0.5 MG/0.5 ML SYRINGE IVP PRN; -LIDOCAINE 1% (10MG/ML) FOR IV START INTRADERMA PRN; -MIDAZOLAM 2 MG/2 ML VIAL IV PRN; -ONDANSETRON 4 MG/2 ML VIAL IVP ONE; -ceFAZolin 3 GM in SODIUM CHLORIDE 0.9% 100 ML IVPB PRN
[2022-02-10 11:54] VITALS: TEMP 97.1
[2022-02-10] MEDS ORDERED: LIDOCAINE 1% (10MG/ML) FOR IV START INTRADERMA ONE (11:54)
--- NOTE | 2022-02-10 11:57 | P.GSHP ---
History of Present Illness H&P Date: 02/10/22 Chief Complaint: History of colon cancer This a 51-year-old male with. History of sigmoid colon cancer. Patient underwent sigmoid resection 2019. Patient presents today for colonoscopy Past Medical History Past Medical History: Cancer, Hyperlipidemia, Hypertension Additional Past Medical History / Comment(s): hx. Colon Cancer, & bowel RESECTION 05/21/18, chemo after surg. History of Any Multi-Drug Resistant Organisms: None Reported Past Surgical History: Bowel Resection, Tonsillectomy Additional Past Surgical History / Comment(s): 05/21/18-bowel resection, mediport insertion,. colonoscopy Past Anesthesia/Blood Transfusion Reactions: No Reported Reaction Smoking Status: Never smoker - Past Family History Mother Family Medical History: No Reported History Medications and Allergies Home Medications Medication Instructions Recorded Confirmed Type lisinopriL [Zestril] 20 mg PO DAILY 05/07/18 02/10/22 History Allergies Allergy/AdvReac Type Severity Reaction Status Date / Time Penicillins Allergy Rash/Hives Verified 02/10/22 11:50 Surgical - Exam Vital Signs Temp Pulse Resp BP Pulse Ox 97.1 F L 103 H 20 133/74 94 L 02/10/22 11:53 02/10/22 11:53 02/10/22 11:53 02/10/22 11:53 02/10/22 11:53 - General well developed, well nourished, no distress - Eyes PERRL - ENT normal pinna - Neck no masses - Respiratory normal expansion - Cardiovascular Rhythm: regular - Abdomen Abdomen: soft, non tender Assessment and Plan Assessment: History of colon cancer. We'll perform colonoscopy.
[2022-02-10] MEDS ORDERED: PROPOFOL 10 MG/ML 20 ML VIAL IV ONE (12:03)
--- NOTE | 2022-02-10 12:19 | P.OP ---
Date of Procedure: 02/10/22 Preoperative Diagnosis: Personal history of colon cancer Postoperative Diagnosis: Normal colonoscopy status post low anterior resection Procedure(s) Performed: Colonoscopy Anesthesia: MAC Surgeon: Mathew Dozier Pathology: none sent Condition: stable Disposition: PACU Description of Procedure: The patient was placed on the endoscopy table in the lateral position. He received IV sedation. Digital rectal exam was performed. This revealed no abnormalities. The flexible colonoscope was then placed patient anus passed throughout the entire colon. The ileocecal valve was visually is. The cecum, ascending and transverse colon appeared normal. The remaining descending colon appeared normal. The anastomosis was visualized. There is no evidence of any inflammatory changes or tumor of the anastomotic site. The rectum appeared normal scope was withdrawn for patient.
[2022-02-10 12:42] VITALS: BP 133/91; PULSE 99; RESP 18
== END 2022-02-10 13:02 | disposition home or self-care (01) ==
LOC: ORWHC2ENDO 09:46
PROVIDERS: ATTEND Surgery
DX: Z85.038 Personal history of other malignant neoplasm of large intestine (principal); I10 Essential (primary) hypertension; E78.5 Hyperlipidemia, unspecified; Z88.0 Allergy status to penicillin; E66.9 Obesity, unspecified; Z79.899 Other long term (current) drug therapy
CPT/HCPCS: 45378; J2704

== ENCOUNTER → 2022-02-24 | Outpatient (CLI) | payer OTHER | END | disposition home or self-care (01) | LOC: LABWHC1 10:38 | PROVIDERS: ATTEND Orthopaedic Surgery Orthopaedic Surgery of the Spine | DX: Z01.812 Encounter for preprocedural laboratory examination (principal) | CPT/HCPCS: 87070 ==

== ENCOUNTER → 2022-03-02 | Outpatient (CLI) | payer OTHER | END | disposition home or self-care (01) | LOC: LABWHC1 15:06 | PROVIDERS: ATTEND Nurse Practitioner Family | DX: Z01.812 Encounter for preprocedural laboratory examination (principal) | CPT/HCPCS: 36415; 85730 ==

== ENCOUNTER 2022-03-16 07:17 | Observation (INO) | payer OTHER ==
[2022-03-11 08:44] VITALS: BMI 44.9
[~2022-03-16 07:17] MED LIST changes: +DEXAMETHASONE SOD PHOSPHATE 4 MG/ML 1 ML VIAL IV ONE; -LACTATED RINGERS 1,000 ML IV SCH; +LIDOCAINE 1% (10MG/ML) FOR IV START INTRADERMA PRN; +MIDAZOLAM 2 MG/2 ML VIAL IV PRN; +ONDANSETRON 4 MG/2 ML VIAL IVP ONE; +ceFAZolin 1,000 MG in SODIUM CHLORIDE 0.9% IRRIGATIO 1,000 ML IRRIGATION PRN; +ceFAZolin 3 GM in SODIUM CHLORIDE 0.9% 100 ML IVPB PRN
[2022-03-16] MEDS ORDERED: LACTATED RINGERS 1,000 ML IV ONE ×7 (08:12→13:03)
[2022-03-16] MEDS ORDERED: NEOSTIGMINE 1 MG/ML 10 ML VIAL ONE (08:20)
[2022-03-16] MEDS ORDERED: HYDROmorphone (PF) 1 MG/ML ONE (08:20)
[2022-03-16] MEDS ORDERED: ePHEDrine 50 MG/ML 1 ML VIAL ONE (08:20)
[2022-03-16] MEDS ORDERED: ONDANSETRON 4 MG/2 ML VIAL ONE (08:20)
[2022-03-16] MEDS ORDERED: MIDAZOLAM 2 MG/2 ML VIAL ONE (08:20)
[2022-03-16] MEDS ORDERED: PHENYLEPHRINE-0.9% NACL SYG 1,000 MCG/10 ML SYRINGE ONE (08:20)
[2022-03-16] MEDS ORDERED: fentaNYL (PF) 50 MCG/ML 2 ML AMP ONE (08:20)
[2022-03-16] MEDS ORDERED: LIDOCAINE 2% INJ 20 MG/ML (2 ML VIAL) ONE (08:20)
[2022-03-16] MEDS ORDERED: WATER FOR INJECTION, STERILE 10 ML VIAL IV ONE (08:20)
[2022-03-16] MEDS ORDERED: HEPARIN SODIUM,PORCINE 10,000 UNIT/ML 1 ML VIAL ONE (08:20)
[2022-03-16] MEDS ORDERED: GLYCOPYRROLATE 0.2 MG/ML 2 ML VIAL ONE (08:20)
[2022-03-16] MEDS ORDERED: ALBUMIN HUMAN 5% (25gm) 500 ML VIAL IVPB ONE (08:20)
[2022-03-16] MEDS ORDERED: SODIUM CHLORIDE 0.9% IRRIG 1,000 ML BTL IRRIGATION ONE (08:20)
[2022-03-16] MEDS ORDERED: PROPOFOL 10 MG/ML 20 ML VIAL IV ONE (08:20)
[2022-03-16] MEDS ORDERED: SUCCINYLCHOLINE CHLORIDE 200 MG/10 ML VIAL IV ONE (08:20)
[2022-03-16] MEDS ORDERED: VASOPRESSIN 20 UNIT/ML 1 ML VIAL ONE (08:20)
[2022-03-16] MEDS ORDERED: LIDOCAINE 2%-EPI 1:100,000 20 ML VIAL SQ ONE (09:14)
[2022-03-16] MEDS ORDERED: BUPIVACAINE (PF) 0.25% 30 ML VIAL SQ ONE (09:14)
[2022-03-16] MEDS ORDERED: THROMBIN (BOVINE) 5,000 UNIT VIAL MISCELLANE ONE (09:25)
[2022-03-16] MEDS ORDERED: GELATIN SPONGE,ABSORB (LARGE) 1 EACH SPONGE MISCELLANE ONE (09:25)
[2022-03-16] MEDS ORDERED: SODIUM CHLORIDE 0.9% 100 ML with ceFAZolin 3,000 MG IV ONE ×2 (12:30)
--- NOTE | 2022-03-16 13:21 | FL ---
Intraoperative/procedural fluoroscopic services were provided. Total fluoroscopy time is 31 seconds seconds with a total of 6 submitted images to PACS. Please see the operative/procedural note for furt her details.
[2022-03-16] MEDS ORDERED: CYCLOBENZAPRINE 10 MG TAB PO PRN (13:37)
[2022-03-16] MEDS ORDERED: MAGNESIUM HYDROXIDE 2,400 MG/10 ML CUP PO PRN ×2 (13:37)
[2022-03-16] MEDS ORDERED: ONDANSETRON 4 MG/2 ML VIAL IVP PRN (13:37)
[2022-03-16] MEDS ORDERED: BENZOCAINE/MENTHOL LOZENG 1 EACH LOZENGE MUCOUS MEM PRN (13:37)
--- NOTE | 2022-03-16 13:50 | P.OP ---
Date of Procedure: 03/16/22 Preoperative Diagnosis: Spondylolisthesis L3 4, severe spinal stenosis L3 4 L4 5, degenerative disc disease, lower extremity radiculopathy, extremity weakness, neurogenic claudication, low back pain, facet arthritis, spondylolysis, morbid obesity Postoperative Diagnosis: Same Anesthesia: GETA Pathology: none sent Condition: stable Disposition: PACU Description of Procedure: BRIEF OPERATIVE NOTE Preoperative Diagnosis:Spondylolisthesis L3 4, severe spinal stenosis L3 4 L4 5, degenerative disc disease, lower extremity radiculopathy, extremity weakness, neurogenic claudication, low back pain, facet arthritis, spondylolysis, morbid obesity Postoperative Diagnosis:Spondylolisthesis L3 4, severe spinal stenosis L3 4 L4 5, degenerative disc disease, lower extremity radiculopathy, extremity weakness, neurogenic claudication, low back pain, facet arthritis, spondylolysis, morbid obesity Procedure: Increased degree of difficulty in the case with added time due to patient's body habitus with weight of 170 kg and BMI greater than 35 Laminectomy and decompression L3 4 L4 5 Posterior lateral decompression and fusion L3 4 L4 5 Transforaminal lumbar interbody fusion for a 360 fusion L3 4 L4 5 Discectomy for decompression L3 4 L4 5 Placement of interbody graft L3 4 L4 5 Local autogenous bone grafting Aspiration of bone marrow aspirate from the vertebral body of L3 Use of this seems CT guided navigation system for placement of hardware at L3 4 and 5 Use of Cell Saver Use of bone graft extenders Use of neuro monitoring Surgeon: Dr. Eaton Trip Motor Operator: Arturo Pickett is present throughout the entire the case persistence during positioning, dissection, exposure, visualization, and all crucial elements of the case as well as closure. Anesthesia: General anesthesia Estimated blood loss: Possibly 1000 mL with 550 given back through Cell Saver Complications: None apparent Components implanted: K2M Dilliner cannulated screw pedicle system with 7.5 mm screws with 2 rods and one expandable cage in one capstone cage with local autogenous bone graft to supplement the bone marrow aspirate and bone graft substitute Disposition: To recovery room in good stable condition. OPERATIVE INDICATIONS The patient has had long-standing issues in their lower back and lower extremities. The patient has been through conservative treatment. His found have severe changes with listhesis and severe stenosis L3 4 L4 5. These findings well with his low back and lower extremity symptoms. He is not having any prolonged benefit despite aggressive conservative care. He was found to have listhesis We discussed various treatment options including surgery, and the patient wishes to proceed with surgery We discussed the risk, patient's alternatives and benefits of surgery including but not limited to, risk of bleeding risk of infection, risk of need for further surgery, risk of decreased, loss of motion, muscle function, malunion nonunion, hardware failure, nerve damage, paralysis, heart attack, blindness and . OPERATIVE SUMMARY After discussing all the risks, patient alternatives and benefits at length, the patient elected to proceed with surgical intervention, signed informed consent, and presented for their procedure. The patient was seen and examined in the preoperative holding area and the surgical site was marked. The patient was given antibiotics and brought to the operating room. The patient was sedated and intubated by anesthesia in standard fashion. Positioning took prolonged time and difficulty due to patient's body habitus. The patient was positioned on to the operating room table in a prone position on the appropriate frame which was well-padded and well molded. We were careful to pad any bony prominences and pressure points. We were careful to maintain the patient's cervical spine and good neutral alignment and position throughout. The patient was prepped and draped in a normal standard fashion. An appropriate timeout and keystone protocol performed. We were able to proceed with the surgery. The local wound area was infiltrated with local anesthetic. An incision was made at the midline longitudinally over the appropriate levels. Dissection was taken down subcutaneously to the level of the fascia which was split midline. Dissection was taken over the lamina bilaterally over the facet joints and to the transverse processes. There is greatly increased time and difficulty with dissection due to the patient's body habitus Intraoperative x- ray was taken which showed a marker at the appropriate level at the L4 5 interspace. With the appropriate level positively confirmed, we were able to proceed with placement of the pedicle holes and screws. The patient had all their twitches back. The wound was copiously irrigated and suctioned dry as had been done periodically throughout the case. At this point I was able to place a visiting reference guide at the spinous process of L5 and affix it to the area appropriately. With this intact, we then draped appropriately and then the the appropriate spin with the seam intraoperative CT guidance system. Once we had appropriate images and confirmed accuracy I was able to place screws with guidance at L3-L4 and L5 bilaterally. Screw holes were established similarly at each level. I was able to use the guidance system to establish the appropriate starting point and trajectory into the pedicle. I was then able place a guidewire through the Jamshidi needle into the vertebral body at each level. With this complex imaging was taken with C-arm guidance and showed excellent alignment and position of all the wires at L3 L4 L5. With the wires intact greater than able to place screws over the wires 7.5 mm screws were chosen and placed over the wires and each worse establishing good alignment and position with excellent bony purchase at L3-L4 and L5 bilaterally. An aging was again taken which showed excellent alignment and position of the screws at L3 to 5. The transverse process or sacral ala was decorticated with a high-speed bur. I was able to use these holes to place the appropriate size screw and good alignment and good position with good bony purchase. When the screws were inserted there were stimulated, and found to have no stimulation at 20 mA. I was able to turn my attention to the decompression decompression was performed with a combination of rongeurs, curettes, Kerrison rongeurs and a ball-tip feeler. All of the bone that was removed was stripped and morcellized for use as autogenous bone graft later in the case. I was able to obtain good central decompression as well as wide bilateral foraminal decompression at L3 4 and L4 5. There is no evidence of dural tear or leak. Good hemostasis was maintained. The wound was irrigated and suctioned dry. I performed a complete facetectomy at the appropriate level on the most symptomatic side on the left first at L4 5 and then at L3 4. All bone that was removed was saved for local autogenous bone grafting. I was able to gain access to the disc space at the appropriate level/levels. Good hemostasis was maintained. I was able to protect the neurologic structures. A discectomy was performed. This provided further decompression. I was also able to perform complete discectomy and endplate preparation with a combination of pituitary curettes, rasps and scrapers. With the interbody space prepared, I was able to do appropriate sizing. The appropriate size cage was chosen. The wound was irrigated and suctioned dry. The interbody space was packed with local autogenous bone graft and a small portion of bone graft substitute, as was the cage itself. Protecting the soft tissue structures, I was able place the cage in good alignment and good position with good fit and fill. There is no evidence of extrusion of the graft material nor protrusion of the interbody device. The wound was irrigated and suctioned dry. With the hardware intact, intraoperative x-ray was again taken which showed good alignment and position of the hardware at the appropriate levels at L3 4 and 5. We were then able to measure, contour and place the rods and appropriate hardware bilaterally. I was able to place capcrews, tighten them down, and torque them off appropriately. With this intact I was able to place the local otitis bone graft with additional bone graft enhancer as necessary into the posterior lateral gutters bilaterally. With the bone graft intact, a stable construct, and good decompression at the appropriate levels, we were able to proceed with closure. Good hemostasis was maintained. There is no evidence of dural tear or leak. The fascia was closed for a watertight closure. The subcutaneous tissue was closed over a superficial drain. The subcuticular tissue was closed with absorbable suture. The wound was cleaned and dried and dressed with the appropriate dressing. The drapes were broken down. The patient was gently rolled back onto their hospital bed being careful to maintain their cervical spine and good neutral alignment and position. They were woken up by anesthesia, extubated, and brought to the recovery room in good stable condition. The patient will be admitted to the hospital for appropriate postoperative care, medical management and monitoring. We will continue to follow them closely about the postoperative course.
[2022-03-16] MEDS: HYDROmorphone 0.5 MG/0.5 ML SYRINGE IVP PRN ×4 (14:25→15:22)
[2022-03-16] MEDS: LACTATED RINGERS 1,000 ML IV SCH (15:35)
[2022-03-16] MEDS: SODIUM CHLORIDE 0.9% 1,000 ML IV SCH (15:35)
[2022-03-16] MEDS ORDERED: SODIUM CHLORIDE 0.9% 1,000 ML IV ONE (15:37)
[2022-03-16] MEDS: HYDROmorphone 1 MG/ML 1 ML SYRINGE IVP PRN (16:00)
[2022-03-16] MEDS: ceFAZolin 3 GM in SODIUM CHLORIDE 0.9% 100 ML IVPB SCH ×2 (16:15→23:59)
[2022-03-16] MEDS: HYDROcodone/APAP 7.5-325MG 1 EACH TAB PO PRN ×2 (17:24→21:45)
[2022-03-17] MEDS: HYDROmorphone 1 MG/ML 1 ML SYRINGE IVP PRN ×3 (00:05→10:12)
[2022-03-17] MEDS: SODIUM CHLORIDE 0.9% 1,000 ML IV SCH ×2 (04:21→12:58)
[2022-03-17] MEDS: HYDROcodone/APAP 7.5-325MG 1 EACH TAB PO PRN (08:49)
[2022-03-17] MEDS: diazePAM 5 MG TAB PO PRN ×2 (08:49→23:05)
[2022-03-17] MEDS: lisinopriL 20 MG TAB PO SCH (08:51)
[2022-03-17] MEDS: SENNOSIDES-DOCUSATE SODIUM 1 EACH TAB PO SCH (08:51)
--- NOTE | 2022-03-17 09:07 | P.PN ---
Progress Note - Text Progress Note Date: 03/17/22 Postoperative day #1 Patient is seen and examined today at bedside. The patient has some pain around the surgical site as expected. Pain is being controlled with medication.He has had limited only mobility thus far. She denies any nausea or vomiting. He says his legs are doing well. Physical Exam Afebrile with stable vital signs Abdomen is soft nontender. Chest has good excursion deep and space expiration The incision site is clean dry and intact. No erythema there is no purulence.T he dressing and the drain are intact. Extremities have not had neurologic change from prior to surgery.He has sustained dorsal to plantar flexion and EHL intact Calves and thighs were soft nontender without evidence of DVT. Assessment/Plan Postoperative day #1 status post open decompression fusion L3 4 L4 5For his spondylolisthesis with severe stenosis and lower extremity radiculopathy Patient is progressing as expected from the surgery. It'll take some work for him to start to mobilize given his overall body habitus and size of surgery. Therapy is going to work with him to get him up on his feet today. He will have his Louise discontinued and we'll keep the drain intact until Tomorrow morning. We will continue to increase the patient's mobilization with therapy. We will continue pain control with oral or IV medications. We'll continue to follow patient closely.
[2022-03-17 09:31] LABS: HCT 34.9 % (39.6-50.0); HGB 11.1 g/dL (13.0-17.0); MCH 28.8 pg (27.0-32.0); MCHC 31.8 g/dL (32.0-37.0); MCV 90.6 fL (80.0-97.0); Mean Platelet Volume 10.1 fL (9.5-12.2); NRBC Per 100 WBC 0 /100 WBCS (0.0-0.0); Platelet Count 235 X 10*3/uL (140-440); RBC 3.85 X 10*6/uL (4.40-5.60); RDW 13.4 % (11.5-14.5); WBC 14.23 X 10*3/uL (4.50-10.00)
[2022-03-17 10:08] LABS: African American GFR (CKD) 99.1 (60.0-200.0); BUN/Creat Ratio 8.9 Ratio (12.00-20.00); Blood Urea Nitrogen 8.9 mg/dL (9.0-27.0); Calcium 8.2 mg/dL (8.7-10.3); Non-African American GFR(CKD) 85.5 (60.0-200.0); Potassium 4.7 mmol/L (3.5-5.5)
[2022-03-17 11:03] LABS: Basophils # (A) 0.02 X 10*3/uL (0.00-0.10); Basophils % (A) 0.1 %; Eosinophils # (A) 0.03 X 10*3/uL (0.04-0.35); Eosinophils % (A) 0.2 %; Immature Grans, Automated 0.8 %; Lymphocytes # (A) 1.65 X 10*3/uL (0.90-5.00); Lymphocytes % (A) 11.6 %; Monocytes # (A) 1.73 X 10*3/uL (0.20-1.00); Monocytes % (A) 12.2 %; Neutrophils # (A) 10.69 X 10*3/uL (1.80-7.70); Neutrophils % (A) 75.1 %; RBC Morphology NORMAL
[2022-03-17] MEDS: LACTATED RINGERS 1,000 ML IV SCH (12:19)
--- NOTE | 2022-03-17 14:32 | P.CONS ---
History of Present Illness - Reason for Consult Leukocytosis - History of Present Illness Patient is a pleasant 51-year-old male admitted for L3-L4 L4-L5 lumbar decompression and fusion surgery. Patient is still having some back pain denied any nausea vomiting fever chills. Patient does have leukocytosis denied any cough or UTI symptoms REVIEW OF SYSTEMS: CONSTITUTIONAL: No fever, no malaise, no fatigue. HEENT: No recent visual problems or hearing problems. Denied any sore throat. CARDIOVASCULAR: No chest pain, orthopnea, PND, no palpitations, no syncope. PULMONARY: No shortness of breath, no cough, no hemoptysis. GASTROINTESTINAL: No diarrhea, no nausea, no vomiting, no abdominal pain. NEUROLOGICAL: No headaches, no weakness, no numbness. HEMATOLOGICAL: Denies any bleeding or petechiae. GENITOURINARY: Denies any burning micturition, frequency, or urgency. MUSCULOSKELETAL/RHEUMATOLOGICAL: Back pain ENDOCRINE: Denies any polyuria or polydipsia. The rest of the 14-point review of systems is negative. PHYSICAL EXAMINATION: GENERAL: The patient is alert and oriented x3, not in any acute distress. Well developed, well nourished. HEENT: Pupils are round and equally reacting to light. EOMI. No scleral icterus. No conjunctival pallor. Normocephalic, atraumatic. No pharyngeal erythema. No thyromegaly. CARDIOVASCULAR: S1 and S2 present. No murmurs, rubs, or gallops. PULMONARY: Chest is clear to auscultation, no wheezing or crackles. ABDOMEN: Soft, nontender, nondistended, normoactive bowel sounds. No palpable organomegaly. MUSCULOSKELETAL: Deferred to primary EXTREMITIES: No cyanosis, clubbing, or pedal edema. NEUROLOGICAL: Gross neurological examination did not reveal any focal deficits. SKIN: No rashes. Assessment and plan -Leukocytosis without any evidence of infection and reactive secondary to surgery -Lumbar spinal stenosis status post decompression surgery, pain is fairly well controlled epidural is of 10 pass gas yet Louise catheter was removed -Hypertension patient blood pressures which has secondary to pain patient was resumed on this and appropriate DVT prophylaxis: As per primary service Past Medical History Past Medical History: Cancer, Hypertension Additional Past Medical History / Comment(s): hx. Colon Cancer, & bowel RESECTION 05/21/18, chemo after surg. History of Any Multi-Drug Resistant Organisms: None Reported Past Surgical History: Bowel Resection, Tonsillectomy Additional Past Surgical History / Comment(s): 05/21/18-bowel resection, mediport insertion-since removed. colonoscopy Past Anesthesia/Blood Transfusion Reactions: No Reported Reaction Past Psychological History: No Psychological Hx Reported Smoking Status: Never smoker Past Alcohol Use History: None Reported Past Drug Use History: None Reported - Past Family History Mother Family Medical History: No Reported History Medications and Allergies Home Medications Medication Instructions Recorded Confirmed Type lisinopriL [Zestril] 20 mg PO DAILY 05/07/18 03/16/22 History Allergies Allergy/AdvReac Type Severity Reaction Status Date / Time Penicillins Allergy Rash/Hives Verified 03/16/22 07:46 Physical Exam Vitals: Vital Signs Temp Pulse Resp BP BP Pulse Ox 03/17/22 08:34 97 03/17/22 08:00 97.8 F 107 H 137/73 97 03/17/22 02:00 98.0 F 103 H 17 113/67 95 03/16/22 20:00 97.9 F 100 18 95/60 96 03/16/22 17:53 100 146/81 98 03/16/22 17:38 110 H 131/77 98 03/16/22 17:24 110 H 146/69 03/16/22 17:08 104 H 115/79 98 03/16/22 16:53 103 H 128/74 99 03/16/22 16:38 101 H 116/72 88 L 03/16/22 16:23 104 H 118/71 97 03/16/22 16:08 107 H 107/62 99 03/16/22 15:53 97.6 F 101 H 18 113/71 98 03/16/22 15:35 103 H 16 114/61 97 03/16/22 14:50 91 16 131/63 97 03/16/22 14:35 107 H 17 131/59 100 Intake and Output 03/16/22 03/17/22 03/17/22 22:59 06:59 14:59 Intake Total 300 Output Total 1200 1170 1020 Balance -900 -1170 -1020 Intake: Oral 300 Output: Drainage 200 120 120 Lower Back 200 120 120 Urine 1000 1050 900 Uretheral (Louise) 900 Other: Voiding Method Indwelling Catheter Urinal Results CBC & Chem 7: 03/17/22 06:43 03/17/22 06:43 Labs: Abnormal Lab Results - Last 24 Hours (Table) 03/17/22 03/17/22 Range/Units 06:43 06:43 WBC 14.23 H (4.50-10.00) X 10*3/uL RBC 3.85 L (4.40-5.60) X 10*6/uL Hgb 11.1 L (13.0-17.0) g/dL Hct 34.9 L (39.6-50.0) % MCHC 31.8 L (32.0-37.0) g/dL Immature Gran # 0.11 H (0.00-0.04) X 10*3/uL Neutrophils # 10.69 H (1.80-7.70) X 10*3/uL Monocytes # 1.73 H (0.20-1.00) X 10*3/uL Eosinophils # 0.03 L (0.04-0.35) X 10*3/uL Carbon Dioxide 30.0 H (20.0-27.5) mmol/L Anion Gap 6.00 L (10.00-18.00) mmol/L BUN 8.9 L (9.0-27.0) mg/dL BUN/Creatinine Ratio 8.90 L (12.00-20.00) Ratio Glucose 129 H (70-110) mg/dL Calcium 8.2 L (8.7-10.3) mg/dL
[2022-03-17 15:04] LABS: Glucose,Whole Blood 144 mg/dL (70-110)
[2022-03-18] MEDS: HYDROcodone/APAP 7.5-325MG 1 EACH TAB PO PRN ×3 (00:21→18:32)
[2022-03-18] MEDS: SODIUM CHLORIDE 0.9% 1,000 ML IV SCH ×2 (07:02→21:51)
--- NOTE | 2022-03-18 09:10 | P.PN ---
Progress Note - Text Progress Note Date: 03/18/22 Orthopedic Spine History of present illness: Patient is a pleasant 51-year-old male who is seen and examined at the bedside following posterior lateral decompression and fusion performed Monday. Patient states they are doing okay post operatively. He does continue to have significant pain and spasm in his lumbar spine. He is currently sitting in a bedside chair. He has been able to increase his mobility but needs assistance while doing so. Currently does not complain of nausea, vomiting, fever, or chills. Patient states pain has been adequately controlled. Patient is eating and voiding freely without difficulty. He is passing gas. He denies any abdominal pain. His postoperative drain remains intact with 85 mL's of blood in the drain every shift. He has been utilizing a walker to aid in ambulation. He does have a walker at home. Patient is being seen and examined by medicine for his other medical diagnoses including hypertension and hyperlipidemia. Physical Exam Lumbar Fusion: Status post surgical day number 2 Patient is awake, alert, and oriented 3 Vital signs stable Good chest excursion with deep inspiration and expiration Abdomen soft nontender Dorsiflexion, plantarflexion, and extensor hallucis longus positive sustained bilaterally No signs or symptoms of DVT; no calf pain; pneumatic cuffs not currently intact bilateral lower extremities Optifoam dressings are clean, dry, and intact over the lumbar spine and right iliac crest; no erythema, purulence, or signs of infection Neurovascularly intact bilaterally lower extremities Postoperative drain intact with approximately 85 mL of blood which is drained at the bedside Assessment: Status post open L3-4 and L4-5 posterior lateral decompression and fusion with transforaminal lumbar interbody fusion Low back pain Lumbar spasm L3-4 spondylolisthesis L3-4 and L4-5 severe spinal stenosis Lumbar degenerative disc disease Low back pain with neurogenic claudication Lumbar facet arthrosis Lower extremity radiculopathy Lower extremity weakness Spondylolysis Morbid obesity Hypertension Hyperlipidemia Plan: 1. Ambulate as tolerated; work with Physical Therapy to increase mobilization; he is encouraged to continue utilizing a walker to aid in ambulation 2. Continue pain control with IV and oral medications; will plan to begin weaning the patient off of IV narcotic medication in anticipation for discharge home in the next 1-3 days MAPS has been reviewed today, 03/18/2022. An "Opiod Start Talking" Form has been signed and placed in the patient's chart. A prescription has been written for hydrocodone 7.5 mg/325 mg, 1 tab every 4 hours as needed for pain, dispense #42. Patient also given a prescription for cyclobenzaprine 10 mg, take one tab 3 times a day as needed for muscle spasm, dispensed #60. These prescriptions are sent to the [facility] pharmacy located within the [facility] per request of the patient. 3. Dressings to remain intact with Optifoam; patient may shower with dressings intact; postoperative drain remains intact. Drain had 85 mL of blood every shift. We will currently plan to leave this drain intact until tomorrow, 03/19/2022. Drain may be discontinued at that time. 4. Medical management can continue to manage patient for patient's other medical diagnoses occluding hypertension and hyperlipidemia 5. We will continue to follow the patient closely; patient continues to have difficulty with mobilization and ambulation postoperatively. Given the significance of his surgery and his body habitus, he has had difficulty with mobilization. He requires assistance for mobility and ambulation. He continues to utilize a walker to aid in ambulation. He has been working with physical therapy and is progressing but slowly. I do not feel the patient is ready for discharge home. Patient will continue to remain in the hospital until his symptoms improve and his pain is better controlled. We will plan to have the patient be admitted to in patient status during her admission. Depending on his progress, patient will most likely remain in the hospital over the next several days with plans for discharge home. Will continue to follow the patient closely. 6. Patient can follow-up with Arturo Sosa PA-C or Dr. Christian Eaton at [facility] in 2-3 weeks following discharge
[2022-03-18] MEDS: SENNOSIDES-DOCUSATE SODIUM 1 EACH TAB PO SCH (09:46)
[2022-03-18] MEDS: LACTATED RINGERS 1,000 ML IV SCH (09:56)
[2022-03-18] MEDS: lisinopriL 20 MG TAB PO SCH (10:40)
--- NOTE | 2022-03-18 12:15 | XR ---
EXAMINATION TYPE: XR chest 2V DATE OF EXAM: 03/18/2022 12:04 PM COMPARISON: Chest radiographs from 06/27/2018 TECHNIQUE: XR chest 2V Frontal and lateral views of the chest. CLINICAL INDICATION:Male, 51 years old with history of Pneumonia; FINDINGS: Lungs/pleura: low lung volumes with streaky flat like atelectasis in the mid lungs bilaterally. Here is no evidence of pleural effusion, focal consolidation, or pneumothorax. Pulmonary vascularity: Unremarkable. Heart/mediastinum: Cardiomediastinal silhouette is unremarkable. Musculoskeletal: No acute osseous pathology. IMPRESSION: No acute cardiopulmonary disease/process.
--- NOTE | 2022-03-18 13:37 | P.PN ---
Subjective Patient is a pleasant 51-year-old male admitted for L3-L4 L4-L5 lumbar decompression and fusion surgery. Patient is still having some back pain denied any nausea vomiting fever chills. Patient does have leukocytosis denied any cough or UTI symptoms 03/18/2022 Patient had fevers yesterday and today.. Patient has leukocytosis to I'm opting septic workup chest x-ray, blood cultures, urine analysis and urine cultures. Patient a lot be started on any antibiotics patient probably has postoperative atelectasis causing fever. Constitutional: Denied any fatigue denied any fever. Cardio vascular: denied any chest pain, palpitations Gastrointestinal denied any nausea vomiting Pulmonary: Denied any shortness of breath cough Neurologic denied any new focal deficits All inpatient medications were reviewed and appropriate changes in these medic ations as dictated in the interval history and assessment and plan. REVIEW OF SYSTEMS: CONSTITUTIONAL: No fever, no malaise, no fatigue. HEENT: No recent visual problems or hearing problems. Denied any sore throat. CARDIOVASCULAR: No chest pain, orthopnea, PND, no palpitations, no syncope. PULMONARY: No shortness of breath, no cough, no hemoptysis. GASTROINTESTINAL: No diarrhea, no nausea, no vomiting, no abdominal pain. NEUROLOGICAL: No headaches, no weakness, no numbness. HEMATOLOGICAL: Denies any bleeding or petechiae. GENITOURINARY: Denies any burning micturition, frequency, or urgency. MUSCULOSKELETAL/RHEUMATOLOGICAL: Back pain ENDOCRINE: Denies any polyuria or polydipsia. The rest of the 14-point review of systems is negative. PHYSICAL EXAMINATION: GENERAL: The patient is alert and oriented x3, not in any acute distress. Well developed, well nourished. HEENT: Pupils are round and equally reacting to light. EOMI. No scleral icterus. No conjunctival pallor. Normocephalic, atraumatic. No pharyngeal erythema. No thyromegaly. CARDIOVASCULAR: S1 and S2 present. No murmurs, rubs, or gallops. PULMONARY: Chest is clear to auscultation, no wheezing or crackles. ABDOMEN: Soft, nontender, nondistended, normoactive bowel sounds. No palpable organomegaly. MUSCULOSKELETAL: Deferred to primary EXTREMITIES: No cyanosis, clubbing, or pedal edema. NEUROLOGICAL: Gross neurological examination did not reveal any focal deficits. SKIN: No rashes. Assessment and plan -Leukocytosis without any evidence of infection and reactive secondary to surgery, will not require any antibiotics but because of the fevers septic workup will be done as mentioned above -Lumbar spinal stenosis status post decompression surgery, pain is fairly well controlled epidural is of 10 pass gas yet Louise catheter was removed -Hypertension fairly well controlled now DVT prophylaxis: As per primary service Objective - Vital Signs Vital signs: Vital Signs Temp 98.2 F 03/18/22 11:46 Pulse 72 03/18/22 08:00 Resp 18 03/18/22 08:00 BP 103/64 03/18/22 08:00 Pulse Ox 91 L 03/18/22 08:50 FiO2 21 03/18/22 08:50 Intake & Output 03/17/22 03/18/22 03/18/22 18:59 06:59 18:59 Output Total 2355 1145 160 Balance -2355 -1145 -160 Output: Drainage 180 85 160 Lower Back 180 85 160 Urine 2175 1060 Uretheral (Louise) 900 Other: Voiding Method Urinal Urinal # Voids 1 2 - Labs CBC & Chem 7: 03/17/22 06:43 03/17/22 06:43 Labs: Abnormal Lab Results - Last 24 Hours (Table) 03/17/22 Range/Units 15:02 POC Glucose (mg/dL) 144 H (70-110) mg/dL
[2022-03-19 02:27] LABS: Appearance,Urine Clear (Clear); Bilirubin,Urine Negative (Negative); Blood,Urine Negative (Negative); Color,Urine Yellow; Glucose,Urine (UA) Negative (Negative); Ketones,Urine 1+ (Negative); Leukocyte Esterase,Urine Negative (Negative); Nitrite,Urine Negative (Negative); PH, Urine 5.5 (5.0-8.0); Protein,Urine Trace (Negative); Specific Gravity,Urine 1.019 (1.001-1.035); Urobilinogen,Urine <2.0 mg/dL (<2.0)
[2022-03-19 07:29] VITALS: BP 108/71; PULSE 96; RESP 17; TEMP 98.8
[2022-03-19] MEDS: LACTATED RINGERS 1,000 ML IV SCH (07:36)
[2022-03-19] MEDS: SENNOSIDES-DOCUSATE SODIUM 1 EACH TAB PO SCH (08:23)
[2022-03-19] MEDS: lisinopriL 20 MG TAB PO SCH (08:23)
[2022-03-19] MEDS: SODIUM CHLORIDE 0.9% 1,000 ML IV SCH (08:23)
--- NOTE | 2022-03-19 09:38 | P.PN ---
Subjective Progress Note Date: 03/19/22 Principal diagnosis: Status post lumbar fusion This is a 51 year-old male post L3 to L4 and L4-L5 decompression and fusion. This is post-op day 3. The patient was evaluated at the bedside today. The patient denies nausea, vomiting, abdominal pain, shortness of breath, and chest pain this morning. He states his pain is controlled at this time. The patient states he is moving better around his room. Objective - Vital Signs Vital signs: Vital Signs Temp 98.8 F 03/19/22 07:28 Pulse 96 03/19/22 07:28 Resp 17 03/19/22 07:28 BP 108/71 03/19/22 07:28 Pulse Ox 94 L 03/19/22 08:19 FiO2 21 03/18/22 08:50 Intake & Output 03/18/22 03/19/22 03/19/22 18:59 06:59 18:59 Output Total 220 400 Balance -220 -400 Output: Drainage 220 Lower Back 220 Urine 400 Other: Voiding Method Urinal Toilet Urinal # Voids 3 - Exam The patient is a 51-year-old female who is in no acute distress. He is alert and oriented 3. Abdomen is soft and nontender. Chest has good excursion with deep inspiration. Incision site is clean dry and intact. Hemovac removed today without difficulty. Tip was intact the patient tolerated well. No erythema or purulent drainage. Extremities has not had neurological change from prior to surgery. He has sustained dorsiflexion and plantar flexion and EHL function. He has good foot and ankle motion. Bilateral calves are soft and nontender. Neurological and circulatory status is intact. - Labs CBC & Chem 7: 03/17/22 06:43 03/17/22 06:43 Labs: Abnormal Lab Results - Last 24 Hours (Table) 03/19/22 Range/Units 01:30 Urine Protein Trace H (Negative) Urine Ketones 1+ H (Negative) Assessment and Plan Plan: 1. Continue pain control 2. Continue physical therapy and ambulation 3. Anticipate discharge home with homecare later today if cleared by physical therapy. 4. Follow up in the office in 2 weeks.
[2022-03-19 09:52] LABS: HCT 33.7 % (39.6-50.0); HGB 10.9 g/dL (13.0-17.0); MCH 28.7 pg (27.0-32.0); MCHC 32.3 g/dL (32.0-37.0); MCV 88.7 fL (80.0-97.0); Mean Platelet Volume 10.2 fL (9.5-12.2); NRBC Per 100 WBC 0 /100 WBCS (0.0-0.0); Platelet Count 262 X 10*3/uL (140-440); RDW 13.2 % (11.5-14.5)
[2022-03-19 10:54] LABS: African American GFR (CKD) 116.3 (60.0-200.0); Anion Gap 12.5 mmol/L (10.00-18.00); BUN/Creat Ratio 11.08 Ratio (12.00-20.00); Blood Urea Nitrogen 9.2 mg/dL (9.0-27.0); Calcium 8.2 mg/dL (8.7-10.3); Carbon Dioxide 26.1 mmol/L (20.0-27.5); Non-African American GFR(CKD) 100.4 (60.0-200.0); Potassium 3.8 mmol/L (3.5-5.5)
--- NOTE | 2022-03-19 11:42 | P.PN ---
Subjective Progress Note Date: 03/19/22 Patient is a pleasant 51-year-old male admitted for L3-L4 L4-L5 lumbar decompression and fusion surgery. Patient is still having some back pain denied any nausea vomiting fever chills. Patient does have leukocytosis denied any cough or UTI symptoms 03/18/2022 Patient had fevers yesterday and today.. Patient has leukocytosis to I'm opting septic workup chest x-ray, blood cultures, urine analysis and urine cultures. Patient a lot be started on any antibiotics patient probably has postoperative atelectasis causing fever. 03/19/2022 Patient is evaluated today resting in bed. Pain reported today 3/10 and dull ache. He states it is controlled with oral pain medication currently. Passing gas, has not had a BM yet but states he feels he may later today. T-Max overnight 99.2, otherwise he has remained afebrile since yesterday. Urine negative for infection. Chest xray showing no acute cardiopulmonary disease. He is denying shortness of breath, denying cough. Denying fever or chills overnight. White count today stable at 14.20. Sodium 133 today. Has been receiving IV fluids overnight. Blood pressure today 108/71, heart rate 96, temperature 98.8, 94% room air. Encouarged to use incentive spirometer. Review of Systems Constitutional: Denied any fatigue denied any fever. Cardio vascular: denied any chest pain, palpitations Gastrointestinal denied any nausea vomiting Pulmonary: Denied any shortness of breath cough Neurologic denied any new focal deficits All inpatient medications were reviewed and appropriate changes in these medications as dictated in the interval history and assessment and plan. PHYSICAL EXAMINATION: GENERAL: The patient is alert and oriented x3, not in any acute distress. Well developed, well nourished. HEENT: Pupils are round and equally reacting to light. EOMI. No scleral icterus. No conjunctival pallor. Normocephalic, atraumatic. No pharyngeal erythema. No thyromegaly. CARDIOVASCULAR: S1 and S2 present. No murmurs, rubs, or gallops. PULMONARY: Chest is clear to auscultation, no wheezing or crackles. ABDOMEN: Soft, nontender, nondistended, normoactive bowel sounds. No palpable organomegaly. MUSCULOSKELETAL: Deferred to primary EXTREMITIES: No cyanosis, clubbing, or pedal edema. NEUROLOGICAL: Gross neurological examination did not reveal any focal deficits. SKIN: No rashes. Assessment and plan Assessment -Leukocytosis without any evidence of infection and reactive secondary to surgery, fever has improved, source of infection not identified, fever possibly related to surgery. -Lumbar spinal stenosis status post decompression surgery, pain is fairly well controlled on oral pain medication, passing gas, no BM yet. -Hypertension fairly well controlled now -Hx colon cancer and bowel resection/chemo -Hyponatremia -Hyperglycemia Full Code GI prophyalxis: DVT prophylaxis: As per primary service Plan Continue current medications Stop IV fluids Repeat BMP outpatient and follow up with PCP Patient will also need to follow up with [facility] outpatient for elevated blood sugar Continue to use incentive spirometer 10 times an hour while awake Pending PT re-evaluation Patient cleared for discharge and to follow up with Primary care and orthopedics outpatient. Thank you for this consultation The impression and plan of care has been dictated by Jacinda Gandhi Nurse Practitioner as directed. Dr. Raulito MD I have performed a history and physical examination and medical decision making of this patient, discussed the same with the dictator, and agree with the dictators assessment and plan as written, documented as a scribe. Based on total visit time, I have performed more than 50% of this visit. Objective - Vital Signs Vital signs: Vital Signs Temp 98.8 F 03/19/22 07:28 Pulse 96 03/19/22 07:28 Resp 17 03/19/22 07:28 BP 108/71 03/19/22 07:28 Pulse Ox 94 L 03/19/22 08:19 FiO2 21 03/18/22 08:50 Intake & Output 03/18/22 03/19/22 03/19/22 18:59 06:59 18:59 Output Total 220 400 Balance -220 -400 Output: Drainage 220 Lower Back 220 Urine 400 Other: Voiding Method Urinal Toilet Urinal # Voids 3 - Labs CBC & Chem 7: 03/19/22 06:23 03/19/22 06:23 Labs: Abnormal Lab Results - Last 24 Hours (Table) 03/19/22 03/19/22 03/19/22 Range/Units 01:30 06:23 06:23 WBC 14.20 H (4.50-10.00) X 10*3/uL RBC 3.80 L (4.40-5.60) X 10*6/uL Hgb 10.9 L (13.0-17.0) g/dL Hct 33.7 L (39.6-50.0) % Sodium 133 L (135-145) mmol/L Chloride 94 L (96-109) mmol/L BUN/Creatinine Ratio 11.08 L (12.00-20.00) Ratio Glucose 131 H (70-110) mg/dL Calcium 8.2 L (8.7-10.3) mg/dL Urine Protein Trace H (Negative) Urine Ketones 1+ H (Negative) Assessment and Plan Time with Patient: Less than 30
--- NOTE | 2022-03-19 18:22 | P.DS ---
Providers Date of admission: 03/17/22 08:58 Expected date of discharge: 03/19/22 Attending physician: Luis Eaton Consults: 03/16/22 13:37 Consult Physician Routine Consulting Provider: Stephany Odell Consult Reason/Comments: Medical management Do you want consulting provider notified?: Yes Primary care physician: Meredith [facility] Course: The patient is a 51 -year-old male who is status post L3-L4 and L4-L5 open decompression and fusion on 03/16/[address] Eaton. Patient has known history of low back pain and presented to discuss options. After discussion and cons ideration, patient elected to proceed with a lumbar decompression and fusion. The patient was seen preoperatively and medically cleared for surgery by his primary care physician. The procedure was performed without complications or sequelae. The patient was seen and evaluated at bedside today and denies any new complaints. Pain is reasonably controlled. Dressing is clean dry and intact. Hemovac removed without difficulty. His abdomen is soft and nontender. Dorsiflexion, plantarflexion, extensor hallucis longus positive sustaining bilaterally. Calves are soft and nontender. The patient has full foot and ankle motion without difficulty. Patient's bilateral lower extremities are neurovascular intact. Patient is orthopedically stable for discharge to home today. Pertinent Studies: Laboratory Tests 03/19/22 03/19/22 06:23 06:23 WBC 14.20 H RBC 3.80 L Hgb 10.9 L Hct 33.7 L Sodium 133 L Chloride 94 L Patient Condition at Discharge: Stable Plan - Discharge Summary Discharge Rx Participant: Yes New Discharge Prescriptions: New Cyclobenzaprine [Flexeril] 10 mg PO TID PRN #60 tab PRN Reason: Muscle Spasm HYDROcodone/APAP 7.5-325MG [[place] 7.5-325] 1 each PO Q4HR PRN #42 tab PRN Reason: Pain Sennosides-Docusate Sodium [Senokot-S] 1 tab PO BID PRN #60 tablet PRN Reason: Constipation Famotidine [Pepcid] 20 mg PO DAILY #30 tablet Continue lisinopriL [Zestril] 20 mg PO DAILY Discharge Medication List lisinopriL [Zestril] 20 mg PO DAILY 05/07/18 [History] Cyclobenzaprine [Flexeril] 10 mg PO TID PRN #60 tab 03/18/22 [Rx] HYDROcodone/APAP 7.5-325MG [[place] 7.5-325] 1 each PO Q4HR PRN #42 tab 03/18/22 [Rx] Sennosides-Docusate Sodium [Senokot-S] 1 tab PO BID PRN #60 tablet 03/18/22 [Rx] Famotidine [Pepcid] 20 mg PO DAILY #30 tablet 03/19/22 [Rx] Follow up Appointment(s)/Referral(s): Nursing,[place] [NON-STAFF] - As Needed Arturo Sosa, PAC [PHYSICIAN SALES AND MERCHANDISING ASSOCIATE] - 2 Weeks (Patient may follow-up with Arturo Sosa PA-C or Dr. Christian Eaton at [facility] in 2-3 weeks following discharge. ) Meredith Garrett DO [Primary Care Provider] - 1-2 Days Ambulatory/Diagnostic Orders: Basic Metabolic Panel [LAB.AMB] Time Frame: 2 Days, Location: None Selected Patient Instructions/Handouts: *Surgery [facility] - ([place]) Lumbar Surgery Discharge Instructions Activity/Diet/Wound Care/Special Instructions: 1. Patient may shower with Optifoam dressing intact. 2. Patient may remove Optifoam dressing in 3 days and shower without a dressing at that time. 3. Patient should refrain from driving until at least after their first follow- up appointment in the office. 4. Patient should avoid excessive bending, twisting, lifting; avoid overhead lifting; no lifting greater than 10 pounds 5. Take medications as prescribed 6. Patient should avoid anti-inflammatory medications over the next 6 weeks postoperatively 7. Patient is encouraged to continue utilizing a walker to aid in ambulation as needed; patient has walker 8. Do not soak in tub Discharge Disposition: HOME SELF-CARE
== END 2022-03-19 13:31 | disposition home or self-care (01) ==
LOC: OR 07:17 → 4SSUR 13:28 → OR 03-17 08:58 → 4SSUR 03-17 08:58
PROVIDERS: ADMIT Orthopaedic Surgery Orthopaedic Surgery of the Spine; ATTEND Orthopaedic Surgery Orthopaedic Surgery of the Spine
DX: M51.16 Intervertebral disc disorders with radiculopathy, lumbar region (principal); M43.16 Spondylolisthesis, lumbar region; M48.062 Spinal stenosis, lumbar region with neurogenic claudication; M47.819 Spondylosis without myelopathy or radiculopathy, site unspecified; E66.01 Morbid (severe) obesity due to excess calories; E87.1 Hypo-osmolality and hyponatremia; D72.829 Elevated white blood cell count, unspecified; I10 Essential (primary) hypertension; E78.5 Hyperlipidemia, unspecified; R73.9 Hyperglycemia, unspecified; Z85.038 Personal history of other malignant neoplasm of large intestine; Z92.21 Personal history of antineoplastic chemotherapy; Z79.899 Other long term (current) drug therapy; Z88.0 Allergy status to penicillin; Z68.42 Body mass index [BMI] 45.0-49.9, adult
CPT/HCPCS: 22612; 22614; 20930; 20936; 22853 ×2; 96361 ×2; 96374; 94760 ×3; 97116 ×2; 97530; 97161; 97535; 97166; 86891; 86900; 86901; 80048 ×2; 85025; 85027; 86850; 81003; 87040; 83036; 72100; 71046; 36415; G0378 ×3; P9022; C1713; C1762; J2250; J0330; J1644; J2710; J0690 ×2; J2405; J3010; J1170 ×3; P9045; J2370; J2704; J2001

== ENCOUNTER → 2022-12-30 | Outpatient (CLI) | payer OTHER ==
--- NOTE | 2022-12-30 13:38 | CT ---
EXAMINATION TYPE: CT ChestAbdPelvis w con DATE OF EXAM: 12/30/2022 COMPARISON: 07/01/2022 HISTORY: Malignant neoplasm of sigmoid colon CT DLP: 4538.6 mGycm Automated exposure control for dose reduction was used. CONTRAST: CT scan of the chest, abdomen and pelvis is performed with Oral Contrast and with IV Contrast, patien t injected with 100 mL of Isovue 300. FINDINGS: CT chest: The lungs are clear with no abnormal consolidative/airspace density or abnormal interstitial density. There is no pleural effusion, pleural thickening or pneumothorax. There is no mediastinal, hilar or axillary adenopathy. The great vessels the chest are normal. No focal osseous abnormalities are seen within the bony thorax. CT abdomen and pelvis: The nodularity in the wall of the sigmoid anastomosis is more prominent in size with the transverse d iameter measuring 2.5 cm (previously measured 1.3 cm) in addition there is a second extraluminal intr amesenteric nodule which was not present previously which measures 2.4 cm. Findings are highly suspic ious for recurrent neoplasm. There is no bowel obstruction. There is no free intraperitoneal air or f luid. There is no retroperitoneal adenopathy. There are no focal abnormalities within the liver, pancreas or spleen and there is no organomegaly. T he gallbladder is normal. There are no renal masses or hydronephrosis. No pelvic mass or adenopathy. There are postsurgical changes of lumbar metallic fusion but no focal osseous lesions. IMPRESSION: 1. No evidence of metastatic disease to the chest. 2. Findings high suspicious for recurrent neoplasm of the colon at the sigmoid anastomosis as describ ed above.
== END | disposition home or self-care (01) ==
LOC: RADCTMAIN 08:54
PROVIDERS: ATTEND Internal Medicine Hematology & Oncology
DX: C18.7 Malignant neoplasm of sigmoid colon (principal); I10 Essential (primary) hypertension; Z71.3 Dietary counseling and surveillance
CPT/HCPCS: 71260; 74177; Q9967

== ENCOUNTER → 2023-07-31 | Outpatient (CLI) | payer OTHER ==
--- NOTE | 2023-07-31 14:10 | CT ---
EXAMINATION TYPE: CT ChestAbdPelvis w con DATE OF EXAM: 07/31/2023 COMPARISON: 12/30/2022 HISTORY: h/o colon CA, f/u CT DLP: 3402.5 mGycm CONTRAST: CT scan of the chest, abdomen and pelvis is performed with Oral Contrast and with IV Contrast, patien t injected with 100 mL of Isovue 300. CT Chest: LUNGS: The lungs are clear and free of infiltrate or atelectasis. No pulmonary nodule or mass is det ected. No pleural effusion or CT evidence of interstitial lung disease. MEDIASTINUM: Thoracic aorta is of normal caliber. The heart is not enlarged. No evidence for media stinal mass or adenopathy. HILAR STRUCTURES: No evidence for mass. No hilar adenopathy is appreciated. OTHER: No significant abnormality. CONTRAST CT ABDOMEN AND PELVIS FINDINGS: LIVER/GB: Mild hepatic steatosis noted. No calcified gallstones. No space occupying hepatic lesion . Biliary tree is of normal caliber. PANCREAS: No inflammation. No distinct mass. SPLEEN: No splenic enlargement. No lesion seen. ADRENALS: No nodule. No thickening. KIDNEYS/BLADDER: No hydronephrosis. No nephrolithiasis. No disctinct renal mass. BOWEL: Normal appendix. Sigmoid anastomosis. No evidence for mass or residual neoplasm at this locati on. Remainder of the colon is unremarkable. Pericolonic lymph nodes have resolved as well. GENITAL ORGANS: No gross abnormality. LYMPH NODES: No greater than 1cm abdominal or pelvic lymph nodes are appreciated. AORTA: No significant abnormality. OSSEOUS STRUCTURES: Postoperative changes lumbar spine. OTHER: No significant additional abnormality is seen. IMPRESSION: 1. Sigmoid anastomosis. No evidence for mass or residual neoplasm at this location. Remainder of the colon is unremarkable. Pericolonic lymph nodes have resolved as well. 2. No evidence of metastatic disease at this time.
== END | disposition home or self-care (01) ==
LOC: RADCTMAIN 11:54
PROVIDERS: ATTEND Internal Medicine Hematology & Oncology
DX: C18.7 Malignant neoplasm of sigmoid colon (principal); I10 Essential (primary) hypertension; Z71.3 Dietary counseling and surveillance; Z98.0 Intestinal bypass and anastomosis status
CPT/HCPCS: 71260; 74177; Q9967

== ENCOUNTER 2023-11-30 02:28 | Observation (INO) | payer OTHER ==
--- NOTE | 2023-11-30 02:51 | ED ---
Abdominal Pain HPI - General Chief Complaint: Abdominal Pain Stated Complaint: ABD Pain Time Seen by Provider: 11/30/23 02:36 Source: patient Mode of arrival: ambulatory Limitations: no limitations - History of Present Illness Initial Comments: This patient is a 53-year-old man who presents with approximately 1 day of right lower quadrant pain. The patient states the pain has been getting progressively worse. He describes it as an aching. MD Complaint: abdominal pain Onset/Timin -: days(s) Location: RLQ Radiation: none Migration to: no migration Severity: moderate Quality: aching Consistency: constant Improves With: nothing Worsens With: nothing - Related Data Home Medications Medication Instructions Recorded Confirmed lisinopriL [Zestril] 20 mg PO DAILY 05/07/18 11/30/23 Ezetimibe [Zetia] 10 mg PO DAILY 11/30/23 11/30/23 Rosuvastatin Calcium [Crestor] 5 mg PO DAILY 11/30/23 11/30/23 Previous Rx's Medication Instructions Recorded Levofloxacin [Levaquin] 500 mg PO DAILY 1 Days #5 tab 12/01/23 Allergies Allergy/AdvReac Type Severity Reaction Status Date / Time amoxicillin Allergy Rash/Hives Verified 11/30/23 08:32 cephalexin [From Keflex] Allergy Rash/Hives Verified 11/30/23 08:32 Penicillins Allergy Rash/Hives/ Verified 11/30/23 08:32 Vomiting Review of Systems ROS Statement: Those systems with pertinent positive or pertinent negative responses have been documented in the HPI. ROS Other: All systems not noted in ROS Statement are negative. Constitutional: Denies: fever, chills, weakness Respiratory: Denies: cough, dyspnea Cardiovascular: Denies: chest pain, palpitations, edema Gastrointestinal: Reports: abdominal pain. Denies: nausea, vomiting, diarrhea, constipation Genitourinary: Denies: dysuria, hematuria Musculoskeletal: Denies: back pain Skin: Denies: rash Neurological: Denies: headache, weakness, numbness Past Medical History Past Medical History: Cancer, Hyperlipidemia, Hypertension Additional Past Medical History / Comment(s): hx. Colon Cancer, & bowel RESECTION 05/21/18, chemo after surg. History of Any Multi-Drug Resistant Organisms: None Reported Past Surgical History: Bowel Resection, Tonsillectomy Additional Past Surgical History / Comment(s): 05/21/18-bowel resection, mediport insertion since removed, colonoscopies Past Anesthesia/Blood Transfusion Reactions: No Reported Reaction Past Psychological History: No Psychological Hx Reported Smoking Status: Never smoker Past Alcohol Use History: None Reported Past Drug Use History: None Reported - Past Family History Mother Family Medical History: No Reported History General Exam Limitations: no limitations General appearance: alert, in no apparent distress Head exam: Present: atraumatic, normocephalic Eye exam: Present: normal appearance. Absent: scleral icterus, conjunctival injection ENT exam: Present: normal oropharynx Neck exam: Present: normal inspection Respiratory exam: Present: normal lung sounds bilaterally. Absent: respiratory distress, wheezes, rales, rhonchi, stridor Cardiovascular Exam: Present: regular rate, normal rhythm, normal heart sounds. Absent: systolic murmur, diastolic murmur, rubs, gallop GI/Abdominal exam: Present: soft, tenderness. Absent: distended, guarding, rebound, rigid, mass Extremities exam: Present: normal inspection, normal capillary refill. Absent: pedal edema, calf tenderness Back exam: Present: normal inspection. Absent: CVA tenderness (R), CVA tenderness (L) Neurological exam: Present: alert Skin exam: Present: warm, dry, intact, normal color. Absent: rash Course Vital Signs 11/30/23 11/30/23 11/30/23 02:30 05:03 08:07 Temperature 98.1 F 97.8 F Pulse Rate 104 H 84 78 Respiratory 20 20 18 Rate Blood Pressure 150/98 130/85 136/83 O2 Sat by Pulse 95 95 96 Oximetry 11/30/23 13:51 Temperature 98.2 F Pulse Rate 77 Respiratory 16 Rate Blood Pressure 154/83 O2 Sat by Pulse 97 Oximetry Medical Decision Making - Medical Decision Making The patient had KUB x-ray which I interpreted as negative for free air or obstruction The patient had CT scan of the abdomen and pelvis which I interpreted as showing signs consistent with appendicitis. Was pt. sent in by a medical professional or institution (, PA, ASSISTANT COUNTY ENGINEER, urgent care, hospital, or half-way...) When possible be specific @ -[No] Did you speak to anyone other than the patient for history (EMS, parent, family, police, friend...)? What history was obtained from this source @ -[No] Did you review nursing and triage notes (agree or disagree)? Why? @ -[I reviewed and agree with nursing and triage notes] Were old charts reviewed (outside hosp., previous admission, EMS record, old EKG, old radiological studies, urgent care reports/EKG's, half-way records)? Report findings @ -[No old charts were reviewed] Differential Diagnosis (chest pain, altered mental status, abdominal pain women, abdominal pain men, vaginal bleeding, weakness, fever, dyspnea, syncope, headache, dizziness, GI bleed, back pain, seizure, CVA, palpatations, mental health, musculoskeletal)? @ -Differential Abdominal Pain Men: Appendicitis, cholecystitis, diverticulosis, ischemic bowel, pancreatitis, hepatitis, UTI, gastroenteritis, AAA, incarcerated hernia, bowel obstruction, constipation, inflammatory bowel, hepatitis, peptic ulcer disease, splenic infar ction, perforated viscus, testicular torsion, this is not meant to be an all- inclusive list EKG interpreted by me (3pts min.). @ -[As above] X-rays interpreted by me (1pt min.). @ -[I interpreted as above CT interpreted by me (1pt min.). @ -[I interpreted as above U/S interpreted by me (1pt. min.). @ -[None done] What testing was considered but not performed or refused? (CT, X-rays, U/S, labs )? Why? @ -[None] What meds were considered but not given or refused? Why? @ -[None] Did you discuss the management of the patient with other professionals (professionals i.e. , PA, ASSISTANT COUNTY ENGINEER, lab, RT, psych nurse, social worker health services, material reclaimer, teacher, learning officer, casework specialist)? Give summary @ -[Discussed with admitting physician and treatment recommendations incorporated Was smoking cessation discussed for >3mins.? @ -[No] Was critical care preformed (if so, how long)? @ -[No] Were there social determinants of health that impacted care today? How? (Homelessness, low income, unemployed, alcoholism, drug addiction, transportation, low edu. Level, literacy, decrease access to med. care, chcf, r ehab)? @ -[No] Was there de-escalation of care discussed even if they declined (Discuss DNR or withdrawal of care, Hospice)? DNR status @ -[No] What co-morbidities impacted this encounter? (DM, HTN, Smoking, COPD, CAD, Cancer, CVA, ARF, Chemo, Hep., AIDS, mental health diagnosis, sleep apnea, morb id obesity)? @ -[None] Was patient admitted / discharged? Hospital course, mention meds given and r oute, prescriptions, significant lab abnormalities, going to OR and other pertinent info. @ -[Patient is 53-year-old man with abdominal pain and his workup does reveal acute appendicitis. Patient will be admitted for probable disposition to the OR Undiagnosed new problem with uncertain prognosis? @ -[No] Drug Therapy requiring intensive monitoring for toxicity (Heparin, Nitro, Insulin, Cardizem)? @ -[No] Were any procedures done? @ -[No] Diagnosis/symptom? @ -Abdominal pain Acute appendicitis Acute, or Chronic, or Acute on Chronic? @ -Acute Uncomplicated (without systemic symptoms) or Complicated (systemic symptoms)? @ -[Uncomplicated Side effects of treatment? @ -[No] Exacerbation, Progression, or Severe Exacerbation? @ -[No] Poses a threat to life or bodily function? How? (Chest pain, USA, CT, pneumonia, PE, COPD, DKA, ARF, appy, cholecystitis, CVA, Diverticulitis, Homicidal, Suicidal, threat to staff... and all critical care pts) @ -[Yes - Lab Data Result diagrams: 11/30/23 21:00 11/30/23 03:12 Lab Results 11/30/23 11/30/23 Range/Units 03:12 03:12 WBC 11.7 H (3.8-10.6) k/uL RBC 4.89 (4.30-5.90) m/uL Hgb 14.4 (13.0-17.5) gm/dL Hct 42.7 (39.0-53.0) % MCV 87.4 (80.0-100.0) fL MCH 29.4 (25.0-35.0) pg MCHC 33.7 (31.0-37.0) g/dL RDW 13.8 (11.5-15.5) % Plt Count 312 (150-450) k/uL MPV 7.6 Neutrophils % 69 % Lymphocytes % 20 % Monocytes % 7 % Eosinophils % 2 % Basophils % 0 % Neutrophils # 8.0 H (1.3-7.7) k/uL Lymphocytes # 2.4 (1.0-4.8) k/uL Monocytes # 0.9 (0-1.0) k/uL Eosinophils # 0.2 (0-0.7) k/uL Basophils # 0.1 (0-0.2) k/uL Sodium 136 L (137-145) mmol/L Potassium 3.8 (3.5-5.1) mmol/L Chloride 102 (98-107) mmol/L Carbon Dioxide 28 (22-30) mmol/L Anion Gap 6 mmol/L BUN 8 L (9-20) mg/dL Creatinine 0.79 (0.66-1.25) mg/dL Est GFR (CKD-EPI)AfAm >90 (>60 ml/min/1.73 sqM) Est GFR (CKD-EPI)NonAf >90 (>60 ml/min/1.73 sqM) Glucose 121 H (74-99) mg/dL Calcium 9.0 (8.4-10.2) mg/dL Total Bilirubin 0.7 (0.2-1.3) mg/dL AST 21 (17-59) U/L ALT 15 (4-49) U/L Alkaline Phosphatase 75 (38-126) U/L C-Reactive Protein 1.7 H (<1.0) mg/dL Total Protein 6.6 (6.3-8.2) g/dL Albumin 4.0 (3.5-5.0) g/dL Amylase 37 (30-110) U/L Lipase 52 (23-300) U/L Disposition Clinical Impression: Abdominal pain, Acute appendicitis Disposition: ADMITTED IP TO THIS HOSP Condition: Good Is patient prescribed a controlled substance at d/c from ED?: No
[2023-11-30 03:21] LABS: Basophils # (A) 0.1 k/uL (0-0.2); Basophils % (A) 0 %; Eosinophils # (A) 0.2 k/uL (0-0.7); Eosinophils % (A) 2 %; HCT 42.7 % (39.0-53.0); HGB 14.4 gm/dL (13.0-17.5); Lymphocytes # (A) 2.4 k/uL (1.0-4.8); Lymphocytes % (A) 20 %; MCH 29.4 pg (25.0-35.0); MCHC 33.7 g/dL (31.0-37.0); MCV 87.4 fL (80.0-100.0); Mean Platelet Volume 7.6; Monocytes # (A) 0.9 k/uL (0-1.0); Monocytes % (A) 7 %; Neutrophils % (A) 69 %; Platelet Count 312 k/uL (150-450); RBC 4.89 m/uL (4.30-5.90); RDW 13.8 % (11.5-15.5); WBC 11.7 k/uL (3.8-10.6)
--- NOTE | 2023-11-30 03:34 | XR ---
EXAM: XR Abdomen, 1 View CLINICAL HISTORY: ITS.REASON XR Reason: abdominal pain TECHNIQUE: Frontal supine view of the abdomen/pelvis. COMPARISON: No relevant prior studies available. FINDINGS: Lower thorax: Consolidations at the lung bases, correlate for atelectasis versus mild pneumonia. Gastrointestinal tract: Nonobstructed bowel gas pattern. Bones/joints: L3-L5 posterior lumbar fusion hardware. No acute fracture. IMPRESSION: 1. Consolidations at the lung bases, correlate for atelectasis versus mild pneumonia. 2. Nonobstructed bowel gas pattern.
[2023-11-30 03:37] LABS: ALT 15 U/L (4-49); AST 21 U/L (17-59); African American GFR (CKD) >90 (>60 ml/min/1.73 sqM); Alkaline Phosphatase 75 U/L (38-126); Amylase 37 U/L (30-110); Anion Gap 6 mmol/L; Blood Urea Nitrogen 8 mg/dL (9-20); C Reactive Protein 1.7 mg/dL (<1.0); Carbon Dioxide 28 mmol/L (22-30); Chloride 102 mmol/L (98-107); Glucose 121 mg/dL (74-99); Lipase 52 U/L (23-300); Non-African American GFR(CKD) >90 (>60 ml/min/1.73 sqM); Potassium 3.8 mmol/L (3.5-5.1); Sodium 136 mmol/L (137-145); Total Bilirubin 0.7 mg/dL (0.2-1.3); Total Protein 6.6 g/dL (6.3-8.2)
--- NOTE | 2023-11-30 06:58 | CT ---
EXAM: CT Abdomen and Pelvis Without Intravenous Contrast CLINICAL HISTORY: ITS.REASON CT Reason: RLQ abdominal pain TECHNIQUE: Axial computed tomography images of the abdomen and pelvis without intravenous contrast. CTDI is 42.3 mGy and DLP is 3278 mGy-cm. This CT exam was performed using one or more of the following dose reduction techniques: automated exposure control, adjustment of the mA and/or kV according to patient size, and/or use of iterative reconstruction technique. COMPARISON: CT Abdomen Pelvis dated july 31 2023 FINDINGS: Limitations: Limited evaluation in the absence of contrast. Lung bases: Dependent scarring at the left lung base. No consolidation. ABDOMEN: Liver: Unremarkable. Gallbladder and bile ducts: Unremarkable. No calcified stones. No ductal dilation. Pancreas: Unremarkable. No ductal dilation. Spleen: Unremarkable. No splenomegaly. Adrenals: Unremarkable. No mass. Kidneys and ureters: No evidence of radiopaque renal calculi or signs of collecting system dilatation. Stomach and bowel: Sigmoidectomy changes. No obstruction. PELVIS: Appendix: Acute appendicitis with the dilated and inflamed appendix measuring up to 1.1 cm. Associated with this is a mass in the right lower quadrant measuring 4.2 x 4.9 x 3.5 cm which may relate to developing abscess. Superinfected mucocele is also possible given increased inflammatory change adjacent to this area from July 30, 2021. Recommend repeat imaging with contrast and surgical consultation. Please note that metastatic disease is also possible. Consider correlation with patient history of neoplasm. Bladder: Unremarkable. No stones. Reproductive: Unremarkable as visualized. ABDOMEN and PELVIS: Intraperitoneal space: Unremarkable. No free air. No significant fluid collection. Bones/joints: Degenerative changes in the spine. No acute fracture. No dislocation. Soft tissues: Umbilical hernia containing fat. Diastases recti. Vasculature: Atherosclerotic disease. No abdominal aortic aneurysm. Lymph nodes: Unremarkable. No enlarged lymph nodes. IMPRESSION: 1. Limited evaluation in the absence of contrast. 2. No evidence of radiopaque renal calculi or signs of collecting system dilatation. 3. Acute appendicitis with the dilated and inflamed appendix measuring up to 1.1 cm. Associated with this is a mass in the right lower quadrant measuring 4.2 x 4.9 x 3.5 cm which may relate to developing abscess. Superinfected mucocele is also possible given increased inflammatory change adjacent to this area from July 30, 2021. Recommend repeat imaging with contrast and surgical consultation. Please note that metastatic disease is also possible. Consider correlation with patient history of neoplasm. <MYCVCSECTION> Communications: 11/30/23 07:03 Verify Receipt Verified receipt with Ignacio perry to Dr Boykin on 11/29 07:03 (-04:00)
[2023-11-30] MEDS ORDERED: NALOXONE 0.4 MG/ML 1 ML VIAL IV PRN (07:06)
[2023-11-30] MEDS ORDERED: MORPHINE SULFATE 4 MG/ML SYRINGE IV PRN (07:14)
[2023-11-30] MEDS: SODIUM CHLORIDE 0.9% 1,000 ML IV SCH (08:02)
[2023-11-30] MEDS: CEFEPIME 2 GM in SODIUM CHLORIDE 0.9% 100 ML IVPB STA (08:02)
[2023-11-30 08:12] LABS: Appearance,Urine Clear (Clear); Bilirubin,Urine Negative (Negative); Blood,Urine Negative (Negative); Color,Urine Yellow; Glucose,Urine (UA) Negative (Negative); Ketones,Urine Negative (Negative); Leukocyte Esterase,Urine Negative (Negative); Nitrite,Urine Negative (Negative); PH, Urine 5.5 (5.0-8.0); Protein,Urine Negative (Negative); Specific Gravity,Urine 1.018 (1.001-1.035); Urobilinogen,Urine <2.0 mg/dL (<2.0)
[2023-11-30] MEDS: PANTOPRAZOLE 40 MG/10 ML VIAL IV SCH (09:24)
--- NOTE | 2023-11-30 11:46 | P.GSHP ---
History of Present Illness H&P Date: 11/30/23 CHIEF COMPLAINT: Abdominal pain HISTORY OF PRESENT ILLNESS: This is a 53-year-old male who presented to the hospital with complaints of right lower quadrant abdominal pain that started 3 days ago. Patient reports that initially he thought he had some gas pains. But pain continued to worsen into Monday. And therefore he came into the ER for further evaluation. CAT scan completed and reported acute appendicitis with dilated and inflamed appendix measuring up to 1.1 cm. Associated with this is a mass in the right lower quadrant measuring 4.2 x 4.9 x 3.5 cm which may relate to a developing abscess. Patient denies any fever chills or sweats. Does have a past medical history of colon cancer with a bowel resection in 2019. Denies any cardiac history. Denies any blood thinners. PAST MEDICAL HISTORY: Colon Cancer, Hyperlipidemia, Hypertension PAST SURGICAL HISTORY: hx. Colon Cancer, & bowel RESECTION 05/21/18, chemo after surg. MEDICATIONS: See below ALLERGIES: See below SOCIAL HISTORY: No illicit drug use. REVIEW OF SYSTEMS: CONSTITUTIONAL: Denies fever or chills. HEENT: Denies blurred vision, vision changes, or eye pain. Denies hemoptysis CARDIOVASCULAR: Denies chest pain or pressure. RESPIRATORY: No shortness of breath. GASTROINTESTINAL: See HPI for pertinent findings HEMATOLOGIC: Denies bleeding disorders. GENITOURINARY: Denies any blood in urine or increased urinary frequency. SKIN: Denies pruitis. Denies rash. PHYSICAL EXAM: VITAL SIGNS: Reviewed GENERAL: Well-developed in no acute distress. HEENT: No sclera icterus. Extraocular movements grossly intact. Moist buccal mucosa. Head is atraumatic, normocephalic. No nasal drainage. ABDOMEN: Soft. Nondistended. Tenderness with palpation to right lower quadrant. NEUROLOGIC: Alert and oriented. Cranial nerves II through XII grossly intact. LABORATORY DATA: WBC 11.7 Hgb 14.4 platelets 312 Sodium 136 potassium 3.8 creatinine 0.79 IMAGING: CT scan abdomen pelvis reports acute appendicitis with dilated and inflamed appendix measuring up to 1.1 cm. Associated with this is a mass in the right lower quadrant measuring 4.2 x 4.9 x 3.5 cm which may relate to a developing abscess. Superinfected mucosal seal is also possible given increased inflammatory change. Limited evaluation and absence of contrast. ASSESSMENT: 1. Acute appendicitis with possible abscess. Questionable mass right lower quadrant may relate to developing abscess noted on CT PLAN: -Patient scheduled for laparoscopic appendectomy today with Dr. Dozier -Continue antibiotics -Keep patient n.p.o. -Continue IV fluids -Continue supportive care Physician Coil Machine Supervisor note has been reviewed by physician. Signing provider agrees with the documented findings, assessment, and plan of care. Past Medical History Past Medical History: Cancer, Hyperlipidemia, Hypertension Additional Past Medical History / Comment(s): hx. Colon Cancer, & bowel RES ECTION 05/21/18, chemo after surg. History of Any Multi-Drug Resistant Organisms: None Reported Past Surgical History: Bowel Resection, Tonsillectomy Additional Past Surgical History / Comment(s): 05/21/18-bowel resection, mediport insertion since removed, colonoscopies Past Anesthesia/Blood Transfusion Reactions: No Reported Reaction Past Psychological History: No Psychological Hx Reported Smoking Status: Never smoker Past Alcohol Use History: None Reported Past Drug Use History: None Reported - Past Family History Mother Family Medical History: No Reported History Medications and Allergies Home Medications Medication Instructions Recorded Confirmed Type lisinopriL [Zestril] 20 mg PO DAILY 05/07/18 11/30/23 History Ezetimibe [Zetia] 10 mg PO DAILY 11/30/23 11/30/23 History Rosuvastatin Calcium [Crestor] 5 mg PO DAILY 11/30/23 11/30/23 History Allergies Allergy/AdvReac Type Severity Reaction Status Date / Time amoxicillin Allergy Rash/Hives Verified 11/30/23 08:32 cephalexin [From Keflex] Allergy Rash/Hives Verified 11/30/23 08:32 Penicillins Allergy Rash/Hives/ Verified 11/30/23 08:32 Vomiting Surgical - Exam Vital Signs Temp Pulse Resp BP Pulse Ox 98.1 F 104 H 20 150/98 95 11/30/23 02:30 11/30/23 02:30 11/30/23 02:30 11/30/23 02:30 11/30/23 02:30 Results - Labs 11/30/23 03:12 11/30/23 03:12 Abnormal Lab Results - Last 24 Hours (Table) 11/30/23 11/30/23 Range/Units 03:12 03:12 WBC 11.7 H (3.8-10.6) k/uL Neutrophils # 8.0 H (1.3-7.7) k/uL Sodium 136 L (137-145) mmol/L BUN 8 L (9-20) mg/dL Glucose 121 H (74-99) mg/dL C-Reactive Protein 1.7 H (<1.0) mg/dL Diabetes panel 11/30/23 Range/Units 03:12 Sodium 136 L (137-145) mmol/L Potassium 3.8 (3.5-5.1) mmol/L Chloride 102 (98-107) mmol/L Carbon Dioxide 28 (22-30) mmol/L BUN 8 L (9-20) mg/dL Creatinine 0.79 (0.66-1.25) mg/dL Glucose 121 H (74-99) mg/dL Calcium 9.0 (8.4-10.2) mg/dL AST 21 (17-59) U/L ALT 15 (4-49) U/L Alkaline Phosphatase 75 (38-126) U/L Total Protein 6.6 (6.3-8.2) g/dL Albumin 4.0 (3.5-5.0) g/dL Calcium panel 11/30/23 Range/Units 03:12 Calcium 9.0 (8.4-10.2) mg/dL Albumin 4.0 (3.5-5.0) g/dL Pituitary panel 11/30/23 Range/Units 03:12 Sodium 136 L (137-145) mmol/L Potassium 3.8 (3.5-5.1) mmol/L Chloride 102 (98-107) mmol/L Carbon Dioxide 28 (22-30) mmol/L BUN 8 L (9-20) mg/dL Creatinine 0.79 (0.66-1.25) mg/dL Glucose 121 H (74-99) mg/dL Calcium 9.0 (8.4-10.2) mg/dL Adrenal panel 11/30/23 Range/Units 03:12 Sodium 136 L (137-145) mmol/L Potassium 3.8 (3.5-5.1) mmol/L Chloride 102 (98-107) mmol/L Carbon Dioxide 28 (22-30) mmol/L BUN 8 L (9-20) mg/dL Creatinine 0.79 (0.66-1.25) mg/dL Glucose 121 H (74-99) mg/dL Calcium 9.0 (8.4-10.2) mg/dL Total Bilirubin 0.7 (0.2-1.3) mg/dL AST 21 (17-59) U/L ALT 15 (4-49) U/L Alkaline Phosphatase 75 (38-126) U/L Total Protein 6.6 (6.3-8.2) g/dL Albumin 4.0 (3.5-5.0) g/dL
[2023-11-30] MEDS: IV FLUID CONTINUATION 1,000 ML IV ONE (15:13)
[2023-11-30] MEDS: ONDANSETRON 4 MG/2 ML VIAL IVP STA (15:27)
[2023-11-30] MEDS: DEXAMETHASONE SOD PHOSPHATE 4 MG/ML 1 ML VIAL IVP STA (15:28)
[2023-11-30] MEDS: ACETAMINOPHEN TAB 500 MG TAB PO STA (15:38)
[2023-11-30] MEDS: HEPARIN SODIUM,PORCINE 5,000 UNIT/ML 1 ML VIAL SQ STA (15:39)
[2023-11-30] MEDS ORDERED: SUCCINYLCHOLINE CHLORIDE 200 MG/10 ML VIAL IV ONE (16:08)
[2023-11-30] MEDS ORDERED: ROCURONIUM 10 MG/ML (5 ML VIAL) IV ONE (16:08)
[2023-11-30] MEDS ORDERED: NEOSTIGMINE 1 MG/ML 10 ML VIAL ONE (16:08)
[2023-11-30] MEDS ORDERED: MIDAZOLAM 2 MG/2 ML VIAL ONE (16:08)
[2023-11-30] MEDS ORDERED: SUGAMMADEX SODIUM 200 MG/2 ML SDV IV ONE (16:08)
[2023-11-30] MEDS ORDERED: fentaNYL (PF) 50 MCG/ML 2 ML AMP ONE (16:08)
[2023-11-30] MEDS ORDERED: diphenhydrAMINE 50 MG/ML 1 ML VIAL ONE (16:08)
[2023-11-30] MEDS ORDERED: PROPOFOL 10 MG/ML 20 ML VIAL IV ONE (16:08)
[2023-11-30] MEDS ORDERED: GLYCOPYRROLATE 0.2 MG/ML 2 ML VIAL ONE (16:08)
[2023-11-30] MEDS ORDERED: LIDOCAINE 1% INJ 10MG/ML (20 ML MDV) ONE (16:08)
[2023-11-30] MEDS: LIDOCAINE 2%-EPI 1:100,000 20 ML VIAL SQ ONE ×2 (16:38)
[2023-11-30] MEDS: LACTATED RINGERS 1,000 ML IV ONE (17:05)
[2023-11-30] MEDS ORDERED: ONDANSETRON 4 MG/2 ML VIAL IVP PRN (17:10)
[2023-11-30] MEDS ORDERED: HYDROmorphone 1 MG/ML 1 ML SYRINGE IVP PRN (17:10)
--- NOTE | 2023-11-30 17:10 | P.OP ---
Date of Procedure: 11/30/23 Preoperative Diagnosis: Appendicitis Postoperative Diagnosis: C appendicitis Procedure(s) Performed: Laparoscopic appendectomy Anesthesia: GUILLERMINA Surgeon: Mathew Dozier Pathology: other (Appendix) Condition: stable Disposition: PACU Description of Procedure: P the patient is placed on the operative table in supine position. He received general endotracheal tube anesthesia. His abdomen was prepped and draped in sterile fashion. Using an optical trocar in the left upper quadrant the peritoneal cavity entered. After adequate insufflation the laparoscope was placed back into the peritoneal cavity. The patient was noted to have an incisional hernia above the umbilicus. The incarcerated mentum was dissected free. Next a 10 mm port was placed in the midline epigastric position a 5 mm trocar was placed in the periumbilical area and another 5 mm trocar was placed in the suprapubic midline position. The appendix was seen. There was an inflammatory mass next the appendix. It was unsure if this was infarcted fat. The appendix was dissected free the mesoappendix was dissected using robotic s cissors. I then the base the appendix was seen against the cecum. A Endoloop was placed around the base the appendix. Using the harmonic scissors the appendix was transected. The appendix and necrotic fat was placed into a Endo Catch. This was brought out through the 10 Minaya trocar site. The abdomen is irrigated there is no bleeding seen. The trocars withdrawn. The skin was closed with interrupted 3-0 Monocryl suture. Dermabond dressings applied. Patient Toller procedure well. He was sent to recovery room in stable condition.
[2023-11-30] MEDS: KETOROLAC 15 MG/ML 1 ML VIAL IVP STA (17:58)
[2023-11-30] MEDS: CEFEPIME 2 GM in SODIUM CHLORIDE 0.9% 100 ML IVPB SCH (20:11)
[2023-11-30 21:33] LABS: HCT 39.8 % (39.0-53.0); MCH 28.7 pg (25.0-35.0); MCHC 32.7 g/dL (31.0-37.0); MCV 87.9 fL (80.0-100.0); Mean Platelet Volume 7.2; Platelet Count 298 k/uL (150-450); RBC 4.53 m/uL (4.30-5.90); RDW 13.3 % (11.5-15.5); WBC 13.9 k/uL (3.8-10.6)
[2023-12-01] MEDS: ENOXAPARIN 40 MG/0.4 ML SYRINGE SQ SCH (08:29)
[2023-12-01 15:04] VITALS: BP 132/81; PULSE 79; RESP 18; TEMP 98
--- NOTE | 2023-12-01 15:48 | P.CONS ---
History of Present Illness - Reason for Consult Consult date: 12/01/23 - Chief Complaint Abdominal pain - History of Present Illness 53-year-old male, history of hypertension, hyperlipidemia and colon cancer, who presented to the hospital with complaints of right lower quadrant abdominal pain that started 3 days ago. Patient reports that initially he thought he had some gas pains. But pain continued to worsen into Monday. And therefore he came into the ER for further evaluation. CAT scan completed and reported acute appendicitis with dilated and inflamed appendix measuring up to 1.1 cm. Associated with this is a mass in the right lower quadrant measuring 4.2 x 4.9 x 3.5 cm which may relate to a developing abscess. Patient denies any fever chills or sweats. Does have a past medical history of colon cancer with a bowel resection in 2019. Denies any cardiac history. Denies any blood thinners. Patient is status post laparoscopic appendectomy; POD #1 Reports some tenderness this along the incision site; has been placed on a regular diet and reports he has been tolerating pretty good Review of Systems ROS Other: All systems not noted in ROS Statement are negative. Constitutional: Denies: fever, chills, weakness Respiratory: Denies: cough, dyspnea Cardiovascular: Denies: chest pain, palpitations, edema Gastrointestinal: Reports: abdominal pain. Denies: nausea, vomiting, diarrhea, constipation Genitourinary: Denies: dysuria, hematuria Musculoskeletal: Denies: back pain Skin: Denies: rash Neurological: Denies: headache, weakness, numbness Past Medical History Past Medical History: Cancer, Hyperlipidemia, Hypertension Additional Past Medical History / Comment(s): hx. Colon Cancer, & bowel RESECTION 05/21/18, chemo after surg. History of Any Multi-Drug Resistant Organisms: None Reported Past Surgical History: Bowel Resection, Tonsillectomy Additional Past Surgical History / Comment(s): 05/21/18-bowel resection, mediport insertion since removed, colonoscopies; back surgery (fused discs) 03/2022 Past Anesthesia/Blood Transfusion Reactions: No Reported Reaction Past Psychological History: No Psychological Hx Reported Additional Psychological History / Comment(s): Pt resides alone Smoking Status: Never smoker Past Alcohol Use History: None Reported Past Drug Use History: None Reported - Past Family History Mother Family Medical History: No Reported History Medications and Allergies Home Medications Medication Instructions Recorded Confirmed Type lisinopriL [Zestril] 20 mg PO DAILY 05/07/18 11/30/23 History Ezetimibe [Zetia] 10 mg PO DAILY 11/30/23 11/30/23 History Rosuvastatin Calcium [Crestor] 5 mg PO DAILY 11/30/23 11/30/23 History Allergies Allergy/AdvReac Type Severity Reaction Status Date / Time amoxicillin Allergy Rash/Hives Verified 11/30/23 08:32 cephalexin [From Keflex] Allergy Rash/Hives Verified 11/30/23 08:32 Penicillins Allergy Rash/Hives/ Verified 11/30/23 08:32 Vomiting Physical Exam Vitals: Vital Signs Temp Pulse Pulse Pulse Resp BP BP 12/01/23 08:00 97.9 F 89 20 131/73 12/01/23 01:16 98 F 94 19 124/76 11/30/23 20:00 98.2 F 98 18 138/82 11/30/23 18:30 98.1 F 90 16 127/74 11/30/23 18:07 87 16 160/68 11/30/23 17:53 96 16 162/72 11/30/23 17:40 107 H 20 160/80 11/30/23 17:25 98.0 F 110 H 22 143/68 11/30/23 15:19 97.4 F L 86 16 139/69 11/30/23 13:51 98.2 F 77 16 154/83 Pulse Ox 12/01/23 08:00 96 12/01/23 01:16 93 L 11/30/23 20:00 97 11/30/23 18:30 96 11/30/23 18:07 96 11/30/23 17:53 96 11/30/23 17:40 97 11/30/23 17:25 97 11/30/23 15:19 94 L 11/30/23 13:51 97 Intake and Output 11/30/23 12/01/23 12/01/23 22:59 06:59 14:59 Intake Total 1250 Output Total 5 Balance 1245 Intake: IV 1250 Output: Estimated Blood Loss 5 Other: Voiding Method Toilet Toilet # Voids 2 Weight 158.757 kg General appearance: alert, in no apparent distress Head exam: Present: atraumatic, normocephalic Eye exam: Present: normal appearance. Absent: scleral icterus, conjunctival injection ENT exam: Present: normal oropharynx Neck exam: Present: normal inspection Respiratory exam: Present: normal lung sounds bilaterally. Absent: respiratory distress, wheezes, rales, rhonchi, stridor Cardiovascular Exam: Present: regular rate, normal rhythm, normal heart sounds. Absent: systolic murmur, diastolic murmur, rubs, gallop GI/Abdominal exam: Present: soft, tenderness. Absent: distended, guarding, rebound, rigid, mass Extremities exam: Present: normal inspection, normal capillary refill. Absent: pedal edema, calf tenderness Back exam: Present: normal inspection. Absent: CVA tenderness (R), CVA tenderness (L) Neurological exam: Present: alert Skin exam: Present: warm, dry, intact, normal color. Absent: rash Results CBC & Chem 7: 11/30/23 21:00 11/30/23 03:12 Labs: Abnormal Lab Results - Last 24 Hours (Table) 11/30/23 Range/Units 21:00 WBC 13.9 H (3.8-10.6) k/uL Assessment and Plan Assessment: 1. Acute appendicitis; status post laparoscopic appendectomy; POD #1 -Patient is a placed on regular diet and is able to tolerate well; reports pain around the incision site -Remains on IV antibiotics in form of cefepime 2 g IV every 12 hours -Morphine sulfate 4 mg IV every 4 hours as needed for pain control -Protonix 40 mg IV daily 2. Hypertension; patient takes lisinopril 10 mg daily; will resume home medications 3. Hyperlipidemia; continue home dose of Zetia and Crestor 4. Leukocytosis; white blood count trended up from yesterday 11.7 up to 13.9 this morning; patient remains on IV cefepime 2 g IV every 12 hours; will monitor CBC, CRP and procalcitonin DVT prophylaxis; SCDs/subcu heparin CODE STATUS; full code
--- NOTE | 2023-12-01 16:45 | P.DS ---
Providers Date of admission: 11/30/23 07:06 Expected date of discharge: 12/01/23 Attending physician: Mathew Dozier Consults: 11/30/23 17:11 Consult Physician Routine Consulting Provider: Stephany Odell Consult Reason/Comments: Medical management Do you want consulting provider notified?: Yes Primary care physician: Meredith Garrett [facility] Course: 53-year-old male admitted with acute appendicitis. Underwent laparoscopic appendectomy yesterday afternoon by Dr. Dozier. Doing well today. No pain. No fevers. White blood cell count mildly elevated yesterday. At the time of surgery the patient had an inflammatory piece of fat next to the appendix that was removed as well. Will plan discharge at this time. 5-day course of antibiotics given. No narcotics prescribed. Follow-up [address] Dozier. Patient Condition at Discharge: Good Plan - Discharge Summary Discharge Rx Participant: No New Discharge Prescriptions: New Levofloxacin [Levaquin] 500 mg PO DAILY 1 Days #5 tab Continue lisinopriL [Zestril] 20 mg PO DAILY Ezetimibe [Zetia] 10 mg PO DAILY Rosuvastatin Calcium [Crestor] 5 mg PO DAILY Discharge Medication List lisinopriL [Zestril] 20 mg PO DAILY 05/07/18 [History] Ezetimibe [Zetia] 10 mg PO DAILY 11/30/23 [History] Rosuvastatin Calcium [Crestor] 5 mg PO DAILY 11/30/23 [History] Levofloxacin [Levaquin] 500 mg PO DAILY 1 Days #5 tab 12/01/23 [Rx] Follow up Appointment(s)/Referral(s): Meredith Garrett DO [Primary Care Provider] - 1-2 days Mathew Dozier MD [STAFF PHYSICIAN] - 1 Week Patient Instructions/Handouts: Abdominal Pain (ED)
[2023-12-02] MEDS ORDERED: EZETIMIBE 10 MG TAB PO SCH (09:00)
[2023-12-02] MEDS ORDERED: ATORVASTATIN 10 MG TAB PO SCH (09:00)
[2023-12-02] MEDS ORDERED: lisinopriL 20 MG TAB PO SCH (09:00)
== END 2023-12-01 16:48 | disposition home or self-care (01) ==
LOC: EC 02:28 → 5NMEDONC 07:06 → INTOOBSV 07:06 → 1SOBS 15:35
PROVIDERS: ADMIT Surgery; ATTEND Surgery
DX: K35.80 Unspecified acute appendicitis (principal); K43.2 Incisional hernia without obstruction or gangrene; K38.8 Other specified diseases of appendix; I10 Essential (primary) hypertension; E78.5 Hyperlipidemia, unspecified; E66.01 Morbid (severe) obesity due to excess calories; Z68.41 Body mass index [BMI] 40.0-44.9, adult; Z79.899 Other long term (current) drug therapy; Z88.0 Allergy status to penicillin; Z88.1 Allergy status to other antibiotic agents; Z85.038 Personal history of other malignant neoplasm of large intestine; Z90.49 Acquired absence of other specified parts of digestive tract
CPT/HCPCS: 44970; 96372; 96374; 99285; 36415; 88304; 80053; 82150; 83690; 85025; 85027; 86140; 81003; 74018; 74176; G0378 ×3; J2250; J0330; J1200; J1644; J1100; J2710; J2405; J2001; J1650; J0692 ×2; J3010; J1885; J2704; J1596; J2470 ×2

== ENCOUNTER → 2024-01-29 | Outpatient (CLI) | payer OTHER ==
--- NOTE | 2024-01-29 16:03 | CT ---
EXAMINATION TYPE: CT ChestAbdPelvis w con DATE OF EXAM: 01/29/2024 COMPARISON: 07/31/2023 HISTORY: 6mo check up for hx of colon CA. CT DLP: 1912 mGycm Automated exposure control for dose reduction was used. CONTRAST: CT scan of the chest, abdomen and pelvis is performed with Oral Contrast and with IV Contrast, patien t injected with 100ml mL of Isovue 300. FINDINGS: CT chest: There is no suspicious lung mass or nodule. There is no abnormal airspace/consolidative density or abnormal interstitial density. There is no pleural effusion, pleural thickening or pneumothorax. The great vessels and chest are normal there is no mediastinal, hilar or axillary adenopathy. No focal osseous lesions are seen. CT abdomen and pelvis: Gallbladder is normal without distention, pericholecystic fluid, wall thickening or gallstone. There is no biliary ductal dilatation. There is no focal mass or organomegaly involving the liver, pancreas, spleen or adrenal glands.. There is no solid renal mass or hydronephrosis. There is no retroperitoneal adenopathy or hemorrhage in the caliber of the abdominal aorta is normal. There are 2 nonobstructing right renal calcification s, 7 to 8 mm in size. The bowel loops are normal in caliber and there is no dilatation or obstruction. There is a sigmoid a nastomosis. No inflammatory changes identified in the bowel wall and mesentery. There is no free intr acranial air or fluid. There is no pelvic mass or adenopathy. There is no free fluid within the pelvis. No focal osseous lesions are seen. Soft tissue the abdomen and pelvis are normal. IMPRESSION: No evidence of recurrent or metastatic disease within the chest, abdomen or pelvis [facility], , 01/29/2024 4:01 PM
== END | disposition home or self-care (01) ==
LOC: RADCTMAIN 13:21
PROVIDERS: ATTEND Internal Medicine Hematology & Oncology
DX: C18.7 Malignant neoplasm of sigmoid colon
CPT/HCPCS: 71260; 74177